=== PATIENT | female | born 1935 | race Caucasian/White ===

== ENCOUNTER 2020-01-07 07:54 | Emergency (ER) | payer MEDICARE, SELFPAY ==
[2020-01-07 08:05] VITALS: BP 199/80; PULSE 68; RESP 16; TEMP 36.2; O2SAT 97; BMI 36.5
--- NOTE | 2020-01-07 08:17 | XR_ITS ---
WS: [id number] Left arm and humerus, 2 views, 01/07/2020 Clinical Data: injury Comparison: None. Findings: There is an oblique fracture of the shaft of the left humerus. The visualized left elbow and left andres ulder joint show no fractures. There is a calcification overlying the left greater tuberosity represe nting calcific bursitis and/or tendinitis. There is medial displacement of the distal fracture fragme nt. XR/[place] [address] Impression: Oblique fracture of mid shaft of the left humerus.
--- NOTE | 2020-01-07 08:19 | ED_ITS ---
HPI - Extremity Injury (Upper) General: Chief Complaint: Extremity Injury, Upper Stated Complaint: fall-L arm injury Time Seen by Provider: 01/07/20 08:02 Source: patient and family Mode of arrival: wheelchair Limitations: no limitations History of Present Illness: HPI narrative: Patient is an 84-year-old female who presents to ED today for evaluation following a fall. Patient tells me she was in the bathroom when she looked up and became dizzy causing her to fall forward onto her left arm. Patient tells me it is not unusual for her to become dizzy if she looks down or up for long periods of time. She did not have any shortness of breath, chest pain, difficulty breathing prior to the fall. She states since the fall she has felt normal apart from pain in her left arm. She does not seem concerned with the dizziness and does not want any work-up for this today. Patient denies striking her head, LOC, neck or back pain. MD complaint: injury to: left and arm Onset (ago): hour(s) Other Extremity Injury: Left: arm Other injuries: none Relieving factors: immobilization Exacerbating factors: movement of extremity Associated symptoms: Reports no associated symptoms; Denies neck pain or weakness in extremities Review of Systems Const: Denies: fever(s), chills, body aches, fatigue or malaise Eyes: Denies: change in vision, blurry vision, photophobia, floaters or seeing flashes Card: Denies: chest pain, palpitations, irregular heart rhythm, edema, syncope or pre-syncope Resp: Denies: dyspnea or chest congestion GI: Denies: nausea or vomiting Musc: Reports: extremity pain (L arm) and joint pain (L shoulder); Denies: neck pain, back pain or joint swelling Neuro: Denies: headache(s), numbness in extremities, weakness in extremities or sensory changes PFS ED PFSH: Social History (Updated 01/07/20 @ 08:10 by Duc Carlton RN) Smoking and tobacco status: never smoked Alcohol intake: never Substance/Drug Use: never Physical Exam Const: COMMON NORMALS: no acute distress, patient oriented x3, no limitations and alert ORIENTATION/CONSCIOUSNESS: Yes oriented to person, Yes oriented to place and Yes oriented to time HENMT: COMMON NORMALS: normocephalic and atraumatic HEAD & SCALP: normocephalic and atraumatic Eye: COMMON NORMALS: Equal, round and reactive pupils present and EOMs intact bilaterally GENERAL EYE: appearance normal, both eyes and all related structures PUPIL: Yes Equal, round and reactive pupils present Neck/C-Spine: COMMON NORMALS: full ROM CERVICAL SPINE: No pain with cervical ROM, No Cervical spine tenderness and No Paracervical muscle tenderness Resp: COMMON NORMALS: normal respiratory effort and clear to auscultation bilaterally AUSCULTATION: clear to auscultation bilaterally Cardio: COMMON NORMALS: regular rate and regular rhythm RATE: regular rate RHYTHM: regular rhythm Back/Pelvis: COMMON NORMALS: thoracic and lumbar spine normal to inspection, no thoracic nor lumbar tenderness and thoraco-lumbar ROM normal Extremity: GENERAL: Yes normal exam except as noted OTHER: TTP L shoulder and L mid humerus; dec ROM secondary to pain; NV intact Neuro: UGO COMA SCALE: document GCS findings [place] coma scale eye opening: Spontaneous Ugo coma scale verbal response: Orientated [place] coma scale motor response: Obey commands Ugo coma scale total score: 15 COMMON NORMALS: patient oriented x3 SENSORIUM/ORIENTATION: Yes alert, Yes oriented to person, Yes oriented to place and Yes oriented to time Skin: COMMON NORMALS: no rashes or lesions noted GENERAL SKIN EXAM: no rashes or lesions noted Course Consultations: Consultation #1: Dr. Guillen-recommends erica tong upper arm splint and will see in office next week Vital Signs: Vital signs: Vital Signs Temperature 97.1 F L 01/07/20 08:05 Pulse Rate 68 01/07/20 08:05 Respiratory Rate 20 H 01/07/20 09:11 Blood Pressure 199/80 01/07/20 08:05 Pulse Oximetry 97 01/07/20 08:05 MDM - Extremity Injury (Upper) Lab Data: Labs: Lab Results 01/07/20 Range/Units 08:24 POC Glucose 261 (70-110) mg/dL Imaging Data^: XR L shoulder: Radiologist's impression: [address] [address] XRay Report Signed Patient: Shelley Balderrama Unit #: [id number] : 1935 Age/Sex: 84 / F ADM Date: 01/07/20 Loc: ER Room/Bed: Attending Dr: Ordering Provider/Ordering MD: Kelsey Greenberg Date of Service: 01/07/20 Procedure(s): XR shoulder LT min 2V* 01573 Accession Number(s): [id number] Report Number: [id number] WS: [id number] Left shoulder, 2 views, 01/07/2020 Clinical Data: injury; Y view Comparison: None. Findings: There is an oblique fracture of the mid shaft of the left humerus. The shoulder joints intact. The AC joints unremarkable. There is a small calcification overlying the greater tuberosity which may represent calcific bursitis or tendinitis. XR/XR shoulder LT min 2V* 12760 Impression: 1. Fracture of the mid shaft of the left humerus. 2. Negative for left shoulder fracture or dislocation. 3. Calcific bursitis or tendinitis of the left greater tuberosity. Dictated By: Niki Doll MD Signed By: Niki Doll MD Signed Date/Time: 01/07/20912 DD/ 1 XR L humerus: Radiologist's impression: [address] [place] [address] XRay Report Signed Patient: Shelley Balderrama Unit #: [id number] : 1935 Age/Sex: 84 / F ADM Date: 01/07/20 Loc: ER Room/Bed: Attending Dr: Ordering Provider/Ordering MD: Kelsey Greenberg Date of Service: 01/07/20 Procedure(s): [place] [address] Accession Number(s): [id number] Report Number: [id number] WS: [id number] Left arm and humerus, 2 views, 01/07/2020 Clinical Data: injury Comparison: None. Findings: There is an oblique fracture of the shaft of the left humerus. The visualized left elbow and left shoulder joint show no fractures. There is a calcification overlying the left greater tuberosity representing calcific bursitis and/or tendinitis. There is medial displacement of the distal fracture fragment. XR/[place] [address] Impression: Oblique fracture of mid shaft of the left humerus. Dictated By: Niki Doll MD Signed By: Niki Doll MD Signed Date/Time: 01/07/20914 DD/ 3 Discharge Plan Discharge Patient Disposition: Home Clinical Impression: Closed fracture of shaft of left humerus Qualifiers: Encounter type: initial encounter Fracture morphology: oblique Fracture alignment: displaced Qualified Code(s): S42.332A - Displaced oblique fracture of shaft of humerus, left arm, initial encounter for closed fracture Condition: Stable Prescriptions: New hydrocodone-acetaminophen 5-325 mg tablet 1 tab PO Q6H PRN (Reason: pain) Qty: 20 RF: 0 Discharge Orders: Discharge Order (Routine); Ordered 01/07/20 Ordered By: Kelsey Greenberg Referrals: Mattie Guillen MD [Physician] - Meet Patrick MD [Primary Care Provider] - Activity Restrictions/Additional Instructions: As discussed case management should be contacting you to set you up with your orthopedic appointment with Dr. Guillen. You need to use your cane with ambulat ion at all times especially if you will be taking the prescribed narcotic pain medications as this can increase your risk of falls. As we discussed you may start with a half a tablet and increase as needed to treat your pain. Coding Level of Care Code ED Non Licensed Nuclear Equipment Operator for [place] [facility] Exam Comprehensive
[2020-01-07 08:29] LABS: Glucose Point of Care 261 mg/dL (70-110)
[2020-01-07 09:11] VITALS: RESP 20
[2020-01-07] MEDS: morphine 4 mg/mL SDV 1 mL IM (09:11)
[2020-01-07] MEDS: ondansetron 2 mg/ML SDV 2 mL 4 MG IM (09:13)
--- NOTE | 2020-01-07 09:19 | DCPLANNER ---
manager lighting was asked to schedule a follow up appointment for patient with ortho. manager lighting called the ortho clinic, spoke with Pat, gave clinic patients information. A follow up appointment was scheduled for Saturday, January 11, [address] at 8:[address] Guillen. manager lighting informed ED physician of the scheduled appointment. manager lighting also spoke with patient and gave patient appointment information. Patient stated that she would attend the appointment.
[2020-01-07 09:48] VITALS: BP 169/104; PULSE 85; RESP 18
--- NOTE | 2020-01-16 09:20 | DCPLANNER ---
Patient had a follow up appointment scheduled for 01.11.20 with ortho - patient did attend appointment.
== END 2020-01-07 09:48 | disposition home or self-care (01) ==
PROVIDERS: Emergency Provider Physician Assistant; PCP Family Medicine
DX: S42.332A Displaced oblique fracture of shaft of humerus, left arm, initial encounter for closed fracture (principal); W19.XXXA Unspecified fall, initial encounter; R42 Dizziness and giddiness
CPT/HCPCS: 12345; 29125; 36416; 73030; 73060; 82962; 96372; 99282; 99283; J2270; J2405

== ENCOUNTER → 2020-01-11 08:58 | Outpatient (BNVA) | payer MEDICARE, SELFPAY | PROVIDERS: PCP Family Medicine; Referring Provider Physician Assistant; Visit Provider Specialist | DX: S42.332A Displaced oblique fracture of shaft of humerus, left arm, initial encounter for closed fracture (principal); W19.XXXA Unspecified fall, initial encounter; E66.9 Obesity, unspecified; Z68.38 Body mass index [BMI] 38.0-38.9, adult | CPT/HCPCS: 73060 ==

== ENCOUNTER → 2020-01-20 15:44 | Outpatient (BNVA) | payer MEDICARE, SELFPAY | PROVIDERS: PCP Family Medicine; Visit Provider Specialist | DX: S42.332A Displaced oblique fracture of shaft of humerus, left arm, initial encounter for closed fracture (principal) | CPT/HCPCS: 73060 ==

== ENCOUNTER → 2020-02-17 15:49 | Outpatient (BNVA) | payer MEDICARE, SELFPAY | PROVIDERS: PCP Family Medicine; Visit Provider Specialist | DX: S42.342A Displaced spiral fracture of shaft of humerus, left arm, initial encounter for closed fracture (principal) | CPT/HCPCS: 73060 ==

== ENCOUNTER → 2020-03-23 16:03 | Outpatient (BNVA) | payer MEDICARE, SELFPAY | PROVIDERS: PCP Family Medicine; Visit Provider Specialist | DX: S42.342A Displaced spiral fracture of shaft of humerus, left arm, initial encounter for closed fracture (principal); S42.332A Displaced oblique fracture of shaft of humerus, left arm, initial encounter for closed fracture | CPT/HCPCS: 73060 ==

== ENCOUNTER 2020-03-30 06:00 | Outpatient (RCR) | payer MEDICARE, SELFPAY | END 2020-04-07 23:59 | disposition home or self-care (01) | LOC: TPT 06:00 | PROVIDERS: PCP Family Medicine; Referring Provider Specialist; Visit Provider Specialist | DX: S42.202D Unspecified fracture of upper end of left humerus, subsequent encounter for fracture with routine healing (principal); X58.XXXD Exposure to other specified factors, subsequent encounter | CPT/HCPCS: 97161 ==

== ENCOUNTER 2020-04-08 06:00 | Outpatient (RCR) | payer MEDICARE, SELFPAY | END 2020-05-08 23:59 | disposition home or self-care (01) | LOC: TPT 06:00 | PROVIDERS: PCP Family Medicine; Referring Provider Specialist; Visit Provider Specialist | DX: S42.202D Unspecified fracture of upper end of left humerus, subsequent encounter for fracture with routine healing (principal); X58.XXXD Exposure to other specified factors, subsequent encounter | CPT/HCPCS: 97110; 97140 ==

== ENCOUNTER → 2020-04-20 15:42 | Outpatient (BNVA) | payer MEDICARE, SELFPAY | PROVIDERS: PCP Family Medicine; Visit Provider Specialist | DX: S42.342A Displaced spiral fracture of shaft of humerus, left arm, initial encounter for closed fracture (principal); S42.332A Displaced oblique fracture of shaft of humerus, left arm, initial encounter for closed fracture | CPT/HCPCS: 73060 ==

== ENCOUNTER 2020-05-09 06:00 | Outpatient (RCR) | payer MEDICARE, SELFPAY | END 2020-06-05 23:59 | disposition home or self-care (01) | LOC: TPT 06:00 | PROVIDERS: PCP Family Medicine; Referring Provider Specialist; Visit Provider Specialist | DX: S42.202D Unspecified fracture of upper end of left humerus, subsequent encounter for fracture with routine healing (principal); X58.XXXD Exposure to other specified factors, subsequent encounter | CPT/HCPCS: 97110; 97140 ==

== ENCOUNTER 2020-06-06 06:00 | Outpatient (RCR) | payer MEDICARE, SELFPAY | END 2020-07-06 23:59 | disposition home or self-care (01) | LOC: TPT 06:00 | PROVIDERS: PCP Family Medicine; Referring Provider Specialist; Visit Provider Specialist | DX: S42.202D Unspecified fracture of upper end of left humerus, subsequent encounter for fracture with routine healing (principal); X58.XXXD Exposure to other specified factors, subsequent encounter | CPT/HCPCS: 97110; 97140 ==

== ENCOUNTER → 2020-06-20 16:08 | Outpatient (BNVA) | payer MEDICARE, SELFPAY | PROVIDERS: PCP Family Medicine; Visit Provider Specialist | DX: S42.332A Displaced oblique fracture of shaft of humerus, left arm, initial encounter for closed fracture (principal); X58.XXXA Exposure to other specified factors, initial encounter | CPT/HCPCS: 73060 ==

== ENCOUNTER 2020-07-07 06:00 | Outpatient (RCR) | payer MEDICARE, SELFPAY | END 2020-08-02 23:00 | disposition home or self-care (01) | LOC: TPT 06:00 | PROVIDERS: PCP Family Medicine; Referring Provider Specialist; Visit Provider Specialist | DX: S42.202D Unspecified fracture of upper end of left humerus, subsequent encounter for fracture with routine healing (principal); X58.XXXD Exposure to other specified factors, subsequent encounter | CPT/HCPCS: 97110; 97140 ==

== ENCOUNTER 2020-12-01 12:29 | Outpatient (CLI) | payer MEDICARE, SELFPAY ==
--- NOTE | 2020-12-01 12:45 | USCV_ITS ---
Shelley Balderrama Age: 85 Gender: F : 1935 Exam Date: 12/01/2020 13:00 Ordering Phys: Fadia Holman MD ([email or web address]) Technologist: Mya Levine [place] [facility] [place]: SWELLING IN LEGS BP: / HR: 87 Rhythm: Sinus Technical Quality: Adequate MEASUREMENTS (Male / Female) Normal Values 2D ECHO LV Diastolic Diameter PLAX 3.5 cm 4.2 - 5.9 / 3.9 - 5.3 cm LV Systolic Diameter PLAX 2.5 cm LV Chamber Size 3.2 cm IVS Diastolic Thickness 0.9 cm 0.6 - 1.0 / 0.6 - 0.9 cm IVS Systolic Thickness 1.7 cm LVPW Diastolic Thickness 1.3 cm 0.6 - 1.0 / 0.6 - 0.9 cm LVPW Systolic Thickness 1.5 cm RV Chamber Size 3.3 cm LVOT Diameter 2.1 cm LV Ejection Fraction 2D Teich 57.8 % LV Ejection Fraction MOD 2C 69.7 % LV Ejection Fraction 2C AL 68.0 % LA Diameter 4.4 cm LA Width 3.3 cm LA Height 4.5 cm RA Width 3.7 cm RA Height 2.8 cm Aorta at Sinotubular Diameter 3.5 cm M-MODE LV Diastolic Diameter MM 3.9 cm 4.2 - 5.9 / 3.9 - 5.3 cm LV Systolic Diameter MM 2.3 cm LV Ejection Fraction MM Teich 73.7 % IVS Diastolic Thickness MM 1.3 cm 0.6 - 1.0 / 0.6 - 0.9 cm IVS Systolic Thickness MM 1.4 cm LVPW Diastolic Thickness MM 1.4 cm 0.6 - 1.0 / 0.6 - 0.9 cm LVPW Systolic Thickness MM 1.6 cm RV Diastolic Diameter MM 3.6 cm Aortic Annulus Diameter 3.5 cm LA Ao Ratio MM 1.2 MV E Point Septal Separation 0.6 cm DOPPLER AV Peak Velocity 166.0 cm/s LVOT Peak Velocity 110.0 cm/s AV Area Cont Eq vti 2.6 cm squared AV Area Cont Eq pk 2.2 cm squared MV Area PHT 5.5 cm squared Mitral E to A Ratio 0.6 MV E' Velocity 96.0 cm/s Mitral E to LV E' Septal Ratio 21.3 TR Peak Velocity 154.4 cm/s TR Peak Gradient 9.5 mmHg TR Mean Velocity 103.7 cm/s TR Mean Gradient 5.0 mmHg TR Velocity Time Integral 45.8 cm TV Peak E Velocity 68.0 cm/s Right Atrial Pressure 3.0 mmHg Pulmonary Artery Systolic Pressu 12.5 mmHg PV Peak Velocity 78.0 cm/s RV Acceleration Time 0.1 s RV Ejection Time 0.3 s RV AcT/ET 0.4 FINDINGS Left Ventricle Normal left ventricular cavity size. Normal left ventricular systolic function. No regional wall motion abnormalities. Left ventricular ejection fraction is estimated at 65 %. Grade I/IV diastolic dysfunction (abnormal relaxation filling pattern), normal to mildly elevated filling pressures. Right Ventricle The right ventricle is normal in size and function. Right Atrium The right atrium is normal in size. Left Atrium The left atrium is normal in size. Mitral Valve Severely thickened mitral valve. Severe mitral annular calcification. No mitral valve stenosis. Aortic Valve Moderate aortic valve calcification. No aortic valve stenosis. No aortic valve regurgitation. Tricuspid Valve Trace tricuspid valve regurgitation. Pulmonic Valve Structurally normal pulmonic valve without significant stenosis. There is no pulmonic regurgitation. Pericardium Normal pericardium without effusion. Aorta Normal ascending aorta dimension. CONCLUSIONS 1-Normal left ventricular cavity size. Normal left ventricular systolic function. No regional wall motion abnormalities. Left ventricular ejection fraction is estimated at 65 %. Grade I/IV diastolic dysfunction (abnormal relaxation filling pattern), normal to mildly elevated filling pressures. 2-Severely thickened mitral valve. Severe mitral annular calcification. No mitral valve stenosis. 3-Moderate aortic valve calcification. No aortic valve stenosis. No aortic valve regurgitation. 4-There is no pericardial effusion. 5-Pulmonary artery systolic pressure is within normal limits. 6-Right atrial pressure is around 5 mm of mercury. 7-There are no prior echocardiogram studies to compare. Fadia Holman MD (Electronically Signed) Final Date: 01 December 2020 18:01 S
--- NOTE | 2020-12-01 13:30 | USCV_ITS ---
Shelley Balderrama Age: 85 Gender: F : 1935 Exam Date: 12/01/2020 13:21 Ordering Phys: Fadia Holman MD ([email or web address]) Technologist: Mya Levine Exam Location[place] [facility] [place] Indication: HISTORY: Swelling of legs PROCEDURES: The venous duplex Doppler examination of both lower extremities was performed in the standard fashion. The following venous structures were evaluated: common femoral vein,the greater saphenous vein, superficial femoral vein, and the popliteal vein and ptv. Serial compression, augmentation maneuvers, and spectral Doppler flow evaluation were performed. An evaluation for venous insufficiency was also completed. FINDINGS: No DVT or superficial thrombus seen. No reflux seen The veins were found to be easily compressible with spontaneous blood flow. Non pulsatile flow pattern. CONCLUSIONS No evidence of DVT or superficial vein thrombosis based on the results of the above and patient's clinical progress, further recommendations will be made Thank you for the opportunity to evaluate this patient and make these recommendations in the above-mentioned identifiable veins. No significant venous reflux were noted either in the superficial or deep veins. Normal venous dimensions Dr Esther Lloyd MD [facility] (Electronically Signed) Final Date: 01 December 2020 23:45 S
== END 2020-12-01 12:30 | disposition home or self-care (01) ==
LOC: RAD 12:33
PROVIDERS: PCP Nurse Practitioner Family; Visit Provider Internal Medicine Cardiovascular Disease
DX: R06.00 Dyspnea, unspecified (principal); M79.89 Other specified soft tissue disorders; I08.0 Rheumatic disorders of both mitral and aortic valves
CPT/HCPCS: 93306; 93970

== ENCOUNTER 2022-12-20 17:45 | Emergency (ER) | payer MEDICARE, SELFPAY ==
[2022-12-20 17:59] VITALS: BP 111/70; PULSE 90; TEMP 36.8; O2SAT 93; BMI 37.9
[2022-12-20 19:05] LABS: Basophils # 0.1 10^3/uL (0.0-0.1); Basophils % 0.4 %; Eosinophils # 0.2 10^3/uL (0.0-0.8); Eosinophils % 1.6 %; Hematocrit 37.9 % (36-47); Lymphocytes # 2.1 10^3/uL (0.8-4.8); Lymphocytes % 18.5 %; Mean Corpuscular HGB Conc 29.6 g/dL (30-55); Mean Corpuscular Hemoglobin 23.3 pg (27-33); Mean Platelet Volume 9.1 fL (7.4-10.4); Monocytes # 1.1 10^3/uL (0.2-0.9); Monocytes % 9.6 %; Neutrophils # 8.05 10^3/uL (1.8-7.7); Neutrophils % 69.5 %; Nucleated Red Blood Cells % 0 %; Platelet Count 458 10^3/cmm (157-399); Red Cell Distribution Width 17.3 % (12.1-15.1); White Blood Count 11.59 10^3/uL (3.29-11.43)
[2022-12-20 19:26] LABS: Alanine Aminotransferase 17 U/L (0-33); Albumin Level 3.6 g/dL (3.5-5.2); Alkaline Phosphatase 74 U/L (35-105); Anion Gap 13.2 (5-19); Aspartate Amino Transferase 21 U/L (0-32); Blood Urea Nitrogen 16 mg/dL (8-23); Calcium 8.7 mg/dL (8.5-10.5); Carbon Dioxide 28 mmol/L (22-29); Chloride 100 mmol/L (98-107); Globulin 3.3 g/dL (1.3-4.6); Glucose 186 mg/dL (65-115); Lipase 21 U/L (13-60); Osmolality Calculated 290 mOsm/kg (285-295); Potassium 4.2 mmol/L (3.5-5.1); Sodium 137 mmol/L (136-145); Total Bilirubin 0.3 mg/dL (0.15-1.2); Total Protein 6.9 g/dL (6.6-8.7)
[2022-12-20 21:38] VITALS: BP 115/68; PULSE 82; TEMP 37.1; O2SAT 92
[2022-12-20 23:01] VITALS: BP 154/87; PULSE 83; O2SAT 97
--- NOTE | 2022-12-20 23:07 | CTR_ITS ---
PROCEDURE INFORMATION: Exam: CT Abdomen And Pelvis With Contrast Exam date and time: 12/20/2022 11:34 PM Age: 87 years old Clinical indication: Abdominal pain; Localized; Left lower quadrant (llq); Additional info: Llq abdominal pain TECHNIQUE: Imaging protocol: Computed tomography of the abdomen and pelvis with contrast. Radiation optimization: All CT scans at this facility use at least one of these dose optimization techniques: automated exposure control; mA and/or kV adjustment per patient size (includes targeted exams where dose is matched to clinical indication); or iterative reconstruction. Contrast material: OMNI 350; Contrast volume: 80 ml; Contrast route: INTRAVENOUS (IV); REPORTING DATA: Count of CT and Cardiac NM exams in prior 12 months: This patient has received 0 known CTs and 0 known cardiac nuclear medicine studies in the 12 months prior to the current study. COMPARISON: No relevant prior studies available. RADIATION DOSE METRICS: Total DLP (mGy-cm): 1234.33 FINDINGS: Lungs: The visualized lung bases are unremarkable. Coronary arteries: There is coronary artery calcification. Liver: There is fatty infiltration of the liver. Gallbladder and bile ducts: Normal. No calcified stones. No ductal dilation. Pancreas: Normal. No ductal dilation. Spleen: Normal. No splenomegaly. Adrenal glands: Normal. No mass. Kidneys and ureters: There is chronic renal disease. There are nonobstructing renal calculi in the left kidney. Stomach and bowel: There is diverticulosis without evidence of diverticulitis. Appendix: No evidence of appendicitis. Intraperitoneal space: Unremarkable. No free air. No significant fluid collection. Vasculature: there is diffuse atherosclerotic disease. Lymph nodes: Unremarkable. No enlarged lymph nodes. Urinary bladder: Unremarkable as visualized. Reproductive: Unremarkable as visualized. Bones/joints: Unremarkable. No acute fracture. Soft tissues: There is a fat containing umbilical hernia. CT/CT abdomen pelvis w con* [id number] IMPRESSION: No acute findings.
[2022-12-20] MEDS: sodium chloride 0.9% 1,000 ML 999 ML IV (23:18)
[2022-12-20] MEDS: iohexol 350 mg/mL 500 mL Btl (per mL) IV (23:40)
[2022-12-21] VITALS: BP 104/69; PULSE 81; O2SAT 93
[2022-12-21 00:30] VITALS: BP 138/80; PULSE 80; O2SAT 93
--- NOTE | 2022-12-21 02:30 | W.ED.ABDPA2 ---
HPI - Abdominal Pain General: Chief Complaint: Abdominal Pain Stated Complaint: abd pain N/V Time Seen by Provider: 12/20/22 22:37 History of Present Illness: Patient is in today for abdominal pain. She reports that since about mid November she has had generalized abdominal pain worse in the epigastric and also left lower quadrant abdomen. She states that this all started after she fell with her walker. She reports that she did not hit her abdomen that she knows of but they were squeezing her abdomen really hurt when they were trying to stand her up. Since then, she states that she has had abdominal pain worse after eating. In the epigastric and left lower quadrant abdomen. She denies any fever, chills. She has had some nausea but no vomiting. She has not seen a provider regarding this abdominal pain yet. She has been trying to cut back tomatoes and other irritating foods to see if that would help. Associated Symptoms: Denies chills, dysuria, fever(s), nausea, syncope and vomiting Review of Systems Const: Denies: fever(s), chills or body aches Card: Denies: chest pain, palpitations, irregular heart rhythm, lightheadedness or syncope Resp: Denies: dyspnea, productive cough or non-productive cough GI: Reports: abdominal pain (Epigastric and left lower quadrant); Denies: nausea or vomiting : Denies: flank pain, difficulty voiding, dysuria, urinary frequency, urinary urgency or urinary hesitancy Musc: Denies: neck pain or back pain Neuro: Denies: headache(s), numbness in extremities or weakness in extremities [facility] PFSH: Medical History Lower extremity edema Shortness of breath Family History Daughter No problems noted. Mother Cancer Diabetes Father Cancer Diabetes Stroke Other Hypertension Social History Smoking and tobacco status: never smoked Alcohol intake: never Substance/Drug Use: never Physical Exam Const: COMMON NORMALS: no acute distress, patient oriented x3 and alert GENERAL APPEARANCE: cooperative ORIENTATION/CONSCIOUSNESS: Yes awake, Yes oriented to person, Yes oriented to place and Yes oriented to time Neck/C-Spine: COMMON NORMALS: full ROM Resp: COMMON NORMALS: normal respiratory effort, No retractions, No use of accessory muscles and clear to auscultation bilaterally EFFORT & INSPECTION: Yes symmetric chest movement AUSCULTATION: clear to auscultation bilaterally Cardio: COMMON NORMALS: regular rate, regular rhythm, S1 normal heart sound present and S2 normal heart sound present RATE: regular rate RHYTHM: regular rhythm HEART SOUNDS: S1 normal heart sound present and S2 normal heart sound present GI: COMMON NORMALS: Normal to inspection, nondistended, normoactive bowel sounds present, Soft to palpation, No hepatosplenomegaly present, no masses and no bruits INSPECTION: Yes normal to inspection PALPATION: Yes Soft to palpation, Yes Tenderness to palpation present (GI) (Epigastric and left lower quadrant) Details: LLQ and Yes No hepatosplenomegaly present : COMMON NORMALS: Yes no CVA tenderness BLADDER/KIDNEY EXAM: Yes no CVA tenderness Back/Pelvis: COMMON NORMALS: no CVA tenderness Neuro: COMMON NORMALS: patient oriented x3 SENSORIUM/ORIENTATION: Yes alert, Yes oriented to person, Yes oriented to place and Yes oriented to time Psych: COMMON NORMALS: cooperative Course Vital Signs: Vital signs: Vital Signs Temperature 98.7 F 12/20/22 21:38 Pulse Rate 80 12/21/22 00:30 Blood Pressure 138/80 12/21/22 00:30 Pulse Oximetry 93 12/21/22 00:30 Oxygen Delivery Me thod Room Air 12/21/22 00:30 MDM - Abdominal Pain Medical Decision Making Consider abdominal pain, peptic ulcer disease, H. pylori, abdominal trauma, diverticulitis CT scan abdomen and pelvis shows no acute findings. White blood cell count is minimally elevated 11.59. Blood sugar is 186 patient reports that that is good for her she is diabetic. Patient was treated with a liter bolus of normal saline as she has been struggling to keep anything down. Discussed results of testing with the patient. Patient is offered a referral to gastroenterology however she would prefer to follow-up with her primary care provider first patient needs stool testing for H. pylori however she was unable to give a sample in ER. Advised patient to follow-up with primary care provider. Return to the ER for any new or worsening symptoms. Lab Data 12/20/22 18:32 12/20/22 18:32 Labs/Radiology: Radiology Impressions Abdomen/Pelvis CT 12/20/22 23:07 IMPRESSION: No acute findings. Laboratory Results WBC 11.59 10^3/uL (3.29-11.43) H 12/20/22 18: RBC 4.80 10^6/uL (3.85-5.65) 12/20/22 18:32 Hgb 11.20 g/dL (11.27-16.99) L 12/20/22 18:32 Hct 37.9 % (36-47) 12/20/22 18: MCV 79.0 fl (85-98) L 12/20/22 18: MCH 23.3 pg (27-33) L 12/20/22 18: MCHC 29.6 g/dL (30-55) L 12/20/22 18: RDW 17.3 % (12.1-15.1) H 12/20/22 18:32 Plt Count 458 10^3/cmm (157-399) H 12/20/22 18: MPV 9.1 fL (7.4-10.4) 12/20/22 18: Neut % (Auto) 69.5 % 12/20/22 18:32 Lymph % (Auto) 18.5 % 12/20/22 18:32 [place] % (Auto) 9.6 % 12/20/22 18:32 Eos % (Auto) 1.6 % 12/20/22 18:32 Baso % (Auto) 0.4 % 12/20/22 18:32 Neut # (Auto) 8.05 10^3/uL (1.8-7.7) H 12/20/22 18:32 Lymph # (Auto) 2.1 10^3/uL (0.8-4.8) 12/20/22 18:32 [place] # (Auto) 1.1 10^3/uL (0.2-0.9) H 12/20/22 18: Eos # (Auto) 0.2 10^3/uL (0.0-0.8) 12/20/22 18: Baso # (Auto) 0.1 10^3/uL (0.0-0.1) 12/20/22 18: Nucleated RBC % (auto) 0 % 12/20/22 18:32 Nucleated RBCs # 0.0 /100WBC 12/20/22 18:32 Sodium 137 mmol/L (136-145) 12/20/22 18:32 Potassium 4.2 mmol/L (3.5-5.1) 12/20/22 18:32 Chloride 100 mmol/L (98-107) 12/20/22 18:32 Carbon Dioxide 28 mmol/L (22-29) 12/20/22 18:32 Anion Gap 13.2 (5-19) 12/20/22 18:32 BUN 16 mg/dL (8-23) 12/20/22 18:32 Creatinine 1.0 mg/dL (0.5-0.9) H 12/20/22 18:32 GFR Calculation Not Reportable 12/20/22 18:32 Glucose 186 mg/dL (65-115) H 12/20/22 18:32 Calculated Osmolality 290 mOsm/kg (285-295) 12/20/22 18:32 Calcium 8.7 mg/dL (8.5-10.5) 12/20/22 18:32 Total Bilirubin 0.3 mg/dL (0.15-1.2) 12/20/22 18:32 AST 21 U/L (0-32) 12/20/22 18:32 ALT 17 U/L (0-33) 12/20/22 18:32 Alkaline Phosphatase 74 U/L (35-105) 12/20/22 18:32 Total Protein 6.9 g/dL (6.6-8.7) 12/20/22 18:32 Albumin 3.6 g/dL (3.5-5.2) 12/20/22 18:32 Globulin 3.3 g/dL (1.3-4.6) 12/20/22 18:32 Lipase 21 U/L (13-60) 12/20/22 18:32 All radiology interpretation(s) finalized by discharge Discharge Plan Discharge Patient Disposition: Home Clinical Impression: Abdominal pain Condition: Stable Prescriptions: No Action omeprazole magnesium [Prilosec OTC] 20 mg tablet,delayed release (DR/EC) 20 mg PO DAILY glipizide 5 mg tablet 5 mg PO TID Lantus U-100 Insulin 100 unit/mL solution 52 unit SUBCUT BID hydrochlorothiazide 25 mg tablet 25 mg PO DAILY (DME) Clam Shell Style Humeral Brace See Rx Instructions .Route .MEDSUPPLY Qty: 1 0RF Rx Instructions: As directed olmesartan 40 mg tablet 20 mg PO DAILY temazepam 30 mg capsule 30 mg PO .HS aspirin [Adult Low Dose Aspirin] 81 mg tablet,delayed release (DR/EC) 243 mg PO DAILY furosemide 20 mg tablet 20 mg PO DAILY PRN (Reason: edema) potassium chloride 10 mEq tablet extended release 10 meq PO DAILY PRN Discharge Orders: Discharge ED (Routine); Ordered 12/21/22 Ordered By: Grace Donaldson Referrals: Marleni Donaldson APN [Primary Care Provider] - Discharge Diet: Advance as tolerated and Clear Liquid Discharge Activity: Increase activity as tolerated Patient Instructions: Abdominal Pain (ED) Activity Restrictions/Additional Instructions: Your labs did not indicate any evidence of acute bacterial infection. Your CT scan did not show any acute abnormalities. I recommend that you follow-up with your primary care provider next week for ongoing evaluation. You may need a referral to GI specialist for further evaluation. Coding Level of Care Code ED Campaign Consultant for Hawa Perez
== END 2022-12-21 01:32 | disposition home or self-care (01) ==
PROVIDERS: Emergency Medicine; Emergency Provider Nurse Practitioner Family; PCP Nurse Practitioner Family
DX: R10.84 Generalized abdominal pain (principal); Z79.82 Long term (current) use of aspirin; Z79.84 Long term (current) use of oral hypoglycemic drugs; Z79.4 Long term (current) use of insulin
CPT/HCPCS: 36415; 74177; 80053; 83690; 85025; 99285; J7030; Q9967

== ENCOUNTER 2023-06-06 14:16 | Inpatient (IN) | payer MEDICARE, SELFPAY ==
[2023-06-06] VITALS (12 sets, daily range): BP systolic 135–196; BP diastolic 57–99; PULSE 68–92; RESP 18–36; TEMP 36.8–36.9; O2SAT 91–96; BMI 38.0
--- NOTE | 2023-06-06 14:24 | ECG_ITS ---
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 Measurements Intervals [place] Rate: 80 P: 0 MD: 0 QRS: 114 QRSD: 122 T: -36 QT: 356 QTc: 413 Interpretive Statements ATRIAL FIBRILLATION INDETERMINATE AXIS RIGHT BUNDLE BRANCH BLOCK [120+ ms QRS DURATION, UPRIGHT V1, 40+ ms S IN I/aVL/V4/V5/V6] SEPTAL MYOCARDIAL INFARCTION , OF INDETERMINATE AGE [40+ ms Q WAVE IN V1/V2] No previous ECG available for comparison Electronically Signed On 06-06-2023 21:10:45 SANDFILL OPERATOR SURFACE by Esther Lloyd M.D. [id number]
--- NOTE | 2023-06-06 14:25 | XR_ITS ---
WS: [id number] Exam: XR chest 1V portable [id number] Date/Time of Exam: 06/06/2023 2:25 PM Reason For Exam: sob No previous exams. The lungs are clear. There is blunting of the costophrenic angles bilaterally that may represent pleu ral thickening or small pleural effusions. Heart size top limits normal. Marked atheromatous calcific ation and tortuosity of the thoracic aorta. The mediastinum is unremarkable for technique. Bony struc tures are intact. Plaque atelectasis in the mid LEFT lung. IMPRESSION: 1. Blunted RIGHT and LEFT costophrenic angle suggesting either pleural thickening or small pleural ef fusions. 2. No acute infiltrates are noted. Other minor findings as above.
--- NOTE | 2023-06-06 14:27 | ED_ITS ---
HPI - SOB/Dyspnea 2 General: Chief Complaint: Shortness of Breath/Dyspnea Stated Complaint: sob Time Seen by Provider: 06/06/23 14:20 Source: patient and EMS Mode of arrival: EMS Limitations: no limitations History of Present Illness: HPI Narrative: 87-year-old female states over the last 2 days she has had cough congestion along with shortness of breath patient called EMS because she is having increasing dyspnea today EMS states her pulse ox in the low 80s and had to put her on 3 L which she is still on here. States she has had a nonproductive cough she does have some wheezing here no history of CHF or COPD. She denies any fevers denies any worsening proving factors. She did receive a breathing treatment and route Associated symptoms: Deny abdominal pain, chest pain, fever(s), nausea or vomiting Review of Systems 2 Const: Denies: fever(s) or chills Eyes: Denies: eye discomfort ENMT: Denies: throat pain or dental pain Card: Denies: chest pain Resp: Reports: dyspnea and non-productive cough GI: Denies: abdominal pain, nausea, vomiting or diarrhea Musc: Denies: neck pain or back pain Skin/Breast: Denies: rash Neuro: Denies: headache(s) PFSH ED 2 PFSH: Medical History Shortness of breath Lower extremity edema Family History Daughter No problems noted. Mother Cancer Diabetes Father Cancer Diabetes Stroke Other Hypertension Social History Smoking and tobacco/nicotine status: never used tobacco/nicotine Alcohol intake: never Substance/Drug Use: never Physical Exam 2 Const: COMMON NORMALS: patient oriented x3 HENMT: COMMON NORMALS: normocephalic and atraumatic HEAD & SCALP: n ormocephalic and atraumatic Eye: COMMON NORMALS: Equal, round and reactive pupils present and EOMs intact bilaterally PUPIL: Yes Equal, round and reactive pupils present Neck/C-Spine: COMMON NORMALS: full ROM and supple Chest: COMMONS NORMALS: normal inspection of the chest and normal palpation of entire chest wall Resp: COMMON NORMALS: No retractions EFFORT & INSPECTION: Yes respiratory distress AUSCULTATION: rhonchi and wheezes Cardio: COMMON NORMALS: regular rate, regular rhythm and No murmurs present (Cardio) RATE: regular rate RHYTHM: regular rhythm GI: COMMON NORMALS: Normal to inspection, nondistended, normoactive bowel sounds present, Soft to palpation, non-tender and no masses PALPATION: Yes Soft to palpation Extremity: COMMON NORMALS: normal to inspection and full ROM Neuro: COMMON NORMALS: patient oriented x3, moves all extremities and no focal motor deficits Psych: COMMON NORMALS: mental status grossly normal, Normal thought process present and cooperative THOUGHT PROCESS: Normal thought process present Skin: COMMON NORMALS: no rashes or lesions noted and no wounds GENERAL SKIN EXAM: no rashes or lesions noted Course 2 Vital Signs: Vital signs: Vital Signs Temperature 98.3 F 06/06/23 14:20 Pulse Rate 85 06/06/23 14:59 Respiratory Rate 24 H 06/06/23 14:51 Blood Pressure 176/99 06/06/23 14:56 Pulse Oximetry 95 06/06/23 14:56 Oxygen Delivery Me thod Nasal Cannula 06/06/23 14:56 Oxygen Flow Rate 2 06/06/23 14:56 MDM - SOB/Dyspnea Medical Decision Making Patient presents for with respiratory distress with hypoxia she is requiring 2 L oxygen here she does have some rales and wheezing to given breathing treatments her BNP is elevated as well could have new onset CHF she has no signs of pneumonia spoke to the hospitalist will admit at this time she has had no chest pain. Medical Records I reviewed the patient's medical records. Lab Data I reviewed the patient's lab results. 06/06/23 14:43 06/06/23 14:43 Labs/Radiology: Laboratory Results WBC 9.24 10^3/uL (3.29-11.43) 06/06/23 14:43 RBC 4.85 10^6/uL (3.85-5.65) 06/06/23 14:43 Hgb 10.10 g/dL (11.27-16.99) L 06/06/23 14:43 Hct 37.0 % (36-47) 06/06/23 14:43 MCV 76.3 fl (85-98) L 06/06/23 14:43 MCH 20.8 pg (27-33) L 06/06/23 14:43 MCHC 27.3 g/dL (30-55) L 06/06/23 14:43 RDW 21.2 % (12.1-15.1) H 06/06/23 14:43 Plt Count 370 10^3/cmm (157-399) 06/06/23 14:43 MPV 9.0 fL (7.4-10.4) 06/06/23 14:43 Neut % (Auto) 76.0 % 06/06/23 14:43 Lymph % (Auto) 10.7 % 06/06/23 14:43 [place] % (Auto) 12.0 % 06/06/23 14:43 Eos % (Auto) 0.3 % 06/06/23 14:43 Baso % (Auto) 0.6 % 06/06/23 14:43 Neut # (Auto) 7.01 10^3/uL (1.8-7.7) 06/06/23 14:43 Lymph # (Auto) 1.0 10^3/uL (0.8-4.8) 06/06/23 14:43 [place] # (Auto) 1.1 10^3/uL (0.2-0.9) H 06/06/23 14:43 Eos # (Auto) 0.0 10^3/uL (0.0-0.8) 06/06/23 14:43 Baso # (Auto) 0.1 10^3/uL (0.0-0.1) 06/06/23 14:43 Nucleated RBC % (auto) 0 % 06/06/23 14:43 Nucleated RBCs # 0.0 /100WBC 06/06/23 14:43 Specimen Type Arterial 06/06/23 15:01 Sample Site Radial, left 06/06/23 15:01 ABG pH 7.40 (7.35-7.45) 06/06/23 15:01 ABG pCO2 48.7 mmHg (35-45) H 06/06/23 15:01 ABG pO2 74.3 mmHg (80.0-100.0) L 06/06/23 15:01 ABG PO2/FiO2 Ratio 0 06/06/23 15:01 ABG HCO3 30.0 mmol/L (22-26) H 06/06/23 15:01 ABG Base Excess 4.4 mmol/L (-2.0-2.0) H 06/06/23 15:01 Lionel Test Pos 06/06/23 15:01 Hematocrit 32.8 % (37-47) L 06/06/23 15:01 Hgb O2 Saturation 92.1 % (95-100) L 06/06/23 15:01 Carboxyhemoglobin 1.7 %THgb (0.4-20.1) 06/06/23 15:01 Methemoglobin 0.6 % (0.4-1.5) 06/06/23 15:01 Total Hemoglobin 10.7 g/dL (12-16) L 06/06/23 15:01 O2 Delivery Device Nc 06/06/23 15:01 O2 Liters/Min 3.0 % 06/06/23 15:01 FiO2 32.0 % 06/06/23 15:01 Charger Tester ID glc 06/06/23 15:01 Sodium 133 mmol/L (136-145) L 06/06/23 14:43 Potassium 5.0 mmol/L (3.5-5.1) 06/06/23 14:43 Chloride 95 mmol/L (98-107) L 06/06/23 14:43 Carbon Dioxide 28 mmol/L (22-29) 06/06/23 14:43 Anion Gap 15.0 (5-19) 06/06/23 14:43 BUN 9 mg/dL (8-23) 06/06/23 14:43 Creatinine 1.0 mg/dL (0.5-0.9) H 06/06/23 14:43 GFR Calculation Not Reportable 06/06/23 14:43 Glucose 225 mg/dL (65-115) H 06/06/23 14:43 Calculated Osmolality 282 mOsm/kg (285-295) L 06/06/23 14:43 Calcium 8.9 mg/dL (8.5-10.5) 06/06/23 14:43 Total Bilirubin 0.5 mg/dL (0.15-1.2) 06/06/23 14:43 AST 25 U/L (0-32) 06/06/23 14:43 ALT 21 U/L (0-33) 06/06/23 14:43 Alkaline Phosphatase 116 U/L (35-105) H 06/06/23 14:43 NT-Pro-B Natriuret Pep 3127 pg/mL (0-450) H 06/06/23 14:43 Total Protein 6.9 g/dL (6.6-8.7) 06/06/23 14:43 Albumin 3.5 g/dL (3.5-5.2) 06/06/23 14:43 Globulin 3.4 g/dL (1.3-4.6) 06/06/23 14:43 Influenza Type A Ag negative (Negative) 06/06/23 14:50 Influenza Type B Ag negative (Negative) 06/06/23 14:50 SARS-CoV-2 Ag (Rapid) negative (Negative) 06/06/23 14:50 All radiology interpretation(s) finalized by discharge EKG Data EKG 1: I personally reviewed and interpreted this EKG as follows: EKG Interpretation Date: 06/06/23 EKG interpretation time: 14:21 Interpretation: hr [address] elevation qrs 122 qtc 393 Critical Care Time 2 Critical Care Time: Critical Care Time: Yes Total Critical Care Time: 40 Attestation: The high probability of a clinically significant, sudden or life threatening deterioration of the patient's respsystem(s) required my full and direct attention, intervention and personal management. The critical care time is as shown. This time is in addition to time spent performing any reported procedures but includes the following: [x] Data and vital sign review and interpretation [x] Patient assessment, examination and intervention [x] Documentation [x] Medication orders and management Discharge Plan Discharge Patient Disposition: Admitted As Inpatient Clinical Impression: Acute respiratory failure with hypoxia, Hypertension Condition: Stable Prescriptions: No Action omeprazole magnesium [Prilosec OTC] 20 mg tablet,delayed release (DR/EC) 20 mg PO DAILY glipizide 5 mg tablet 5 mg PO TID Lantus U-100 Insulin 100 unit/mL solution 54 unit SUBCUT BID hydrochlorothiazide 25 mg tablet 25 mg PO DAILY PRN (Reason: SWELLING) (DME) Clam Shell Style Humeral Brace See Rx Instructions .Route .MEDSUPPLY Qty: 1 0RF Rx Instructions: As directed temazepam 30 mg capsule 30 mg PO .HS aspirin [Adult Low Dose Aspirin] 81 mg tablet,delayed release (DR/EC) 243 mg PO .@1600 potassium chloride 10 mEq tablet extended release 10 meq PO DAILY PRN olmesartan 20 mg tablet 10 mg PO DAILY Referrals: Donaldson,SULY Yepez [Primary Care Provider] - Coding Level of Care Code ED Criminal Lawyer for Hawa Perez
[2023-06-06] MEDS: methylPREDNISolone sod succ 125 mg/2 mL INJ IV (14:41)
[2023-06-06] MEDS: ipratropium-albuterol 3 mL Neb INHALATION (14:47)
[2023-06-06 14:57] LABS: Basophils # 0.1 10^3/uL (0.0-0.1); Basophils % 0.6 %; Eosinophils % 0.3 %; Lymphocytes % 10.7 %; Mean Corpuscular HGB Conc 27.3 g/dL (30-55); Mean Corpuscular Hemoglobin 20.8 pg (27-33); Mean Corpuscular Volume 76.3 fl (85-98); Monocytes # 1.1 10^3/uL (0.2-0.9); Neutrophils # 7.01 10^3/uL (1.8-7.7); Nucleated Red Blood Cells % 0 %; Platelet Count 370 10^3/cmm (157-399); Red Blood Count 4.85 10^6/uL (3.85-5.65); Red Cell Distribution Width 21.2 % (12.1-15.1); White Blood Count 9.24 10^3/uL (3.29-11.43)
[2023-06-06 15:13] LABS: ABG PCO2 48.7 mmHg (35-45); Arterial Blood Gas Hematocrit 32.8 % (37-47); Base Excess ABG 4.4 mmol/L (-2.0-2.0); Blood Gas Allen Test Pos; Blood Gas Operator Identificat glc; Blood Gas Sample Site Radial, left; Blood Gas Sample Type Arterial; Carboxyhemoglobin 1.7 %THgb (0.4-20.1); HGB O2 Sat 92.1 % (95-100); Methemoglobin 0.6 % (0.4-1.5); Oxygen Device NC; PO2 ABG 74.3 mmHg (80.0-100.0); PO2 FiO2 Ratio Arterial Blood 0; Total Hemoglobin 10.7 g/dL (12-16)
[2023-06-06] MEDS: hyDRALAzine 20 mg/mL INJ 1 mL 10 MG IVP ×2 (15:13→16:19)
[2023-06-06 15:14] LABS: SARS Covid-2 Antigen negative (Negative)
[2023-06-06 15:15] LABS: Influenza A by IFA negative (Negative); Influenza B by IFA negative (Negative)
[2023-06-06 15:33] LABS: Alanine Aminotransferase 21 U/L (0-33); Albumin Level 3.5 g/dL (3.5-5.2); Alkaline Phosphatase 116 U/L (35-105); Aspartate Amino Transferase 25 U/L (0-32); Blood Urea Nitrogen 9 mg/dL (8-23); Calcium 8.9 mg/dL (8.5-10.5); Carbon Dioxide 28 mmol/L (22-29); Chloride 95 mmol/L (98-107); Creatinine Clr Calc Pharmacy 44.0794; Globulin 3.4 g/dL (1.3-4.6); Glucose 225 mg/dL (65-115); NT Pro B Type Natriuretic Pept 3127 pg/mL (0-450); Osmolality Calculated 282 mOsm/kg (285-295); Sodium 133 mmol/L (136-145); Total Bilirubin 0.5 mg/dL (0.15-1.2); Total Protein 6.9 g/dL (6.6-8.7)
--- NOTE | 2023-06-06 16:00 | USCV_ITS ---
Shelley Balderrama Age: 87 Gender: F : 1935 Exam Date: 06/06/2023 19:11 Ordering Phys: Anette Pepe MD Technologist: GENNA Exam Location: [facility] [place] Indication: cough, SOB, no history of CHF or COPD. No history of cardiac intervention per patient. BP: 147 / 57 HR: 1929 Rhythm: Sinus Technical Quality: Adequate MEASUREMENTS (Male / Female) Normal Values 2D ECHO LV Diastolic Diameter PLAX 4.0 cm 4.2 - 5.9 / 3.9 - 5.3 cm IVS Diastolic Thickness 1.4 cm 0.6 - 1.0 / 0.6 - 0.9 cm IVS Systolic Thickness 2.1 cm LVPW Diastolic Thickness 1.4 cm 0.6 - 1.0 / 0.6 - 0.9 cm LVPW Systolic Thickness 1.8 cm LVOT Diameter 1.7 cm LV Ejection Fraction 2D Teich 81.6 % LV Ejection Fraction MOD 2C 83.2 % LV Ejection Fraction 2C AL 0.0 % LA Diameter 4.6 cm Aorta at Sinotubular Diameter 3.0 cm IVC Diameter 2.5 cm M-MODE LA Ao Ratio MM 1.4 AV Cusp Separation MM 1.0 cm DOPPLER AV Peak Velocity 256.0 cm/s LVOT Peak Velocity 100.0 cm/s AV Area Cont Eq vti 0.9 cm squared AV Area Cont Eq pk 0.8 cm squared MV Peak Velocity 183.0 cm/s MV Area PHT 2.5 cm squared Mitral E to A Ratio 0.0 TV Peak Velocity 257.7 cm/s TR Peak Velocity 261.0 cm/s TR Peak Gradient 27.2 mmHg TV Peak E Velocity 61.0 cm/s Right Atrial Pressure 15.0 mmHg Pulmonary Artery Systolic Pressu 42.2 mmHg PV Peak Velocity 111.0 cm/s FINDINGS Left Ventricle Normal left ventricular size and systolic function, EF 81%. Mild left ventricular hypertrophy. No regional wall motion abnormalities. Grade III/IV diastolic dysfunction (restrictive filling pattern), severely elevated filling pressures. Right Ventricle The right ventricle is normal in size and function. Right Atrium Mildly increased right atrial size. Left Atrium Moderately increased left atrial size. Mitral Valve Moderate mitral annular calcification. Aortic Valve Mild to moderate calcification of the aortic valve. Severe low gradient aortic valve stenosis with a valve area of 0.9 cm squared Tricuspid Valve Moderate tricuspid valve regurgitation. Estimated pulmonary artery peak systolic pressure 42 mm normal Pulmonic Valve Mild pulmonary valve regurgitation. Pericardium No pericardial effusion. Aorta Normal ascending aorta dimension. IVC Dilated IVC with decreased respiratory variation. CONCLUSIONS Normal left ventricular size and systolic function, EF 81%. Mild left ventricular hypertrophy. No regional wall motion abnormalities. Grade III/IV diastolic dysfunction (restrictive filling pattern), severely elevated filling pressures. Mildly increased right atrial size. Moderately increased left atrial size. Moderate mitral annular calcification. Mild to moderate calcification of the aortic valve. Severe low gradient, possibly normal flow aortic valve stenosis with a valve area of 0.9 cm squared. Moderate tricuspid valve regurgitation. Mild pulmonary hypertension with an estimated pulmonary artery peak systolic pressure of 42 mmHg Mild pulmonary valve regurgitation. Compared to the study from 12/01/2020, there is some worsening of the aortic valve stenosis, diastolic dysfunction and development of pulmonary hypertension Dr Esther Lloyd MD [facility] (Electronically Signed) Final Date: 07 June 2023 08:54 S
[2023-06-06] MEDS: FUROsemide 10 mg/mL SDV 4mL 40 MG IVP (16:18)
[2023-06-06 16:28] LABS: Lactic Sepsis W/Reflex 1.2 mmol/L (0.5-2.2)
[2023-06-06] MEDS: heparin 5,000 unit/mL INJ 1 mL 5000 UNIT SUBCUT (17:17)
[2023-06-06 17:32] LABS: Glucose Point of Care 212 mg/dL (70-110)
--- NOTE | 2023-06-06 18:33 | P.HP_ITS ---
Providers/Chief Complaint 2 Admitting Physician: Anette Pepe MD Primary Care Provider: Marleni Donaldson APN Chief Complaint: sob History of Present Illness Shelley Balderrama is a 87 year old female who does not carry history of COPD, does not use oxygen at home, she is not completely sure about her medical history stating that her sister would know more, presented to the hospital with chief complaint of shortness of breath. Patient has been experiencing shortness of breath for last 3 days associated with talking and PND and dyspnea on exertion. She lives with her son, her son cooks for her and takes care of her. Patient is denying chest pain, fever, diarrhea endorsing cold, cold symptoms. She is not sure if she has ever been diagnosed with CHF or COPD. In the ER she was showing signs of congestive heart failure with wheezing cardiac wheezing 1 L has been removed from the bag she has a Loyd catheter which was placed in the ER, Patient is stating that he has history of atrial flutter but does not take any blood thinner she is not able to tell me the reason Review of Systems 2 Const: Denies: fever(s) Eyes: Denies: change in vision ENMT: Denies: throat pain Card: Reports: swelling of feet/ankles; Denies: palpitations Resp: Reports: dyspnea GI: Denies: abdominal pain : Denies: flank pain Medications/Allergies Home Medications Medication Instructions Recorded Confirmed Last Taken Type Clam Shell Style Humeral Brace #1 ea 01/11/20 06/06/23 Unknown Rx glipizide 5 mg tablet 5 mg PO TID 01/11/20 06/06/23 06/06/23 History hydrochlorothiazide 25 mg tablet 25 mg PO DAILY PRN SWELLING 01/11/20 06/06/23 06/05/23 History insulin glargine 100 unit/mL 54 unit SUBCUT BID 01/11/20 06/06/23 06/06/23 History subcutaneous solution (Lantus U-100 Insulin) aspirin 81 mg tablet,delayed 243 mg PO .@1600 10/19/20 06/06/23 06/05/23 History release (Adult Low Dose Aspirin) temazepam 30 mg capsule 30 mg PO BEDTIME 10/19/20 06/06/23 06/05/23 History albuterol sulfate 90 mcg/actuation 2 puff inhalation QID PRN 06/06/23 06/06/23 Unknown History aerosol inhaler Shortness Of Breath azithromycin 250 mg tablet See Rx Instructions .Route .COMPLEX 06/06/23 06/06/23 06/05/23 History cetirizine 10 mg tablet 10 mg PO DAILY 06/06/23 06/06/23 06/05/23 History digoxin 125 mcg (0.125 mg) tablet 0.125 mg PO DAILY 06/06/23 06/06/23 06/05/23 History guaifenesin 600 mg tablet, 600 mg PO Q12H PRN Congestion 06/06/23 06/06/23 Unknown History extended release 12 hr (Mucinex) levothyroxine 75 mcg tablet 75 mcg PO QAM 06/06/23 06/06/23 06/06/23 History olmesartan 20 mg tablet 10 mg PO DAILY 06/06/23 06/06/23 06/06/23 History pantoprazole 40 mg tablet,delayed 40 mg PO DAILY 06/06/23 06/06/23 06/06/23 History release Allergies Allergy/AdvReac Type Severity Reaction Status Date / Time amlodipine Allergy Unknown Unknown Verified 06/06/23 14:26 Penicillins Allergy Unknown ALGY-Rash Verified 06/06/23 14:26 ibuprofen AdvReac Unknown Unknown Verified 06/06/23 14:26 metformin AdvReac Unknown Unknown Verified 06/06/23 14:26 PFSH Acute 2 PFSH: Medical History Diabetes mellitus Hyponatremia Hypertension Fracture, humerus closed Obesity, Class II, BMI 35-39.9 Closed fracture of shaft of left humerus Shortness of breath Lower extremity edema Family History Daughter No problems noted. Mother Cancer Diabetes Father Cancer Diabetes Stroke Other Hypertension Social History Smoking and tobacco/nicotine status: never used tobacco/nicotine Alcohol intake: never Substance/Drug Use: never Vitals/I&O/Wt Last Vital Signs Temp 98.3 F 06/06/23 14:20 Pulse 88 06/06/23 17:00 Resp 36 H 06/06/23 17:00 BP 147/57 02/29/24 17:00 Pulse Ox 92 06/06/23 17:00 O2 Del Method Nasal Cannula 06/06/23 17:00 O2 Flow Rate 2 06/06/23 17:00 Weight last 48 hrs Weight 97.522 kg Physical Exam 2 Narrative: Signs of fluid overload present 1 positive pitting edema Currently on 4 L nasal cannula No active chest pain S1, S2 Abdomen soft distended Pleasant and cooperative Mild cognitive impairment Nonfocal neuroexam Urinary Catheter Management: Loyd: Cath Placed During This Visit: yes Urinary Catheter Date of Insertion: 06/06/23 Urinary Catheter Time of Insertion: 17: Data 06/06/23 14:43 06/06/23 14:43 A&P Assessment and plan (1) Shortness of breath: (2) Acute respiratory failure with hypoxia: (3) Lower extremity edema: (4) New onset of congestive heart failure: (5) Wheezing: Plan Acute/new onset CHF Previous echo showed preserved action fraction Preserved respiration heart for exacerbation Will request another echo Start IV Lasix Loyd catheter has been placed for accurate urine output Patient is on digoxin endorse a history of atrial flutter not on any blood thinner Takes aspirin high-dose Cardiac wheezing Anticipate improvement with diuresis Acute hypoxia related to CHF No active sign of pneumonia Currently requiring 4 L, does not use oxygen at home I do believe she has CHF signs greater than COPD Will reduce the dose of steroids to prednisone 40 daily DNR/DNI goals of care discussed with the patient DVT prophylaxis covered with heparin Type 2 diabetes continue insulin sliding scale continue levothyroxine History of hypertension I am continue losartan for now Will request records from [facility], she is stating that she was in [facility] in January last year Self interpretation chest x-ray showing mild vascular congestion and pleural effusion Attestations 2 Medical Necessity Statement*: Anticipating more than 2 midnights Diagnoses Shortness of breath R06.02 Acute respiratory failure with hypoxia J96.01 Lower extremity edema R60.0 New onset of congestive heart failure I50.9 Wheezing R06.2
[2023-06-06 21:28] LABS: Glucose Point of Care 326 mg/dL (70-110)
[2023-06-06] MEDS: insulin lispro 100 unit/1 mL SUBCUT (21:39)
[2023-06-07] VITALS (12 sets, daily range): BP systolic 121–139; BP diastolic 70–81; PULSE 75–88; RESP 17–24; TEMP 36.4–37.7; O2SAT 92–98
[2023-06-07] MEDS: heparin 5,000 unit/mL INJ 1 mL 5000 UNIT SUBCUT (04:53)
[2023-06-07 06:05] LABS: Basophils % 0.1 %; Hematocrit 33.5 % (36-47); Lymphocytes # 0.7 10^3/uL (0.8-4.8); Lymphocytes % 9.2 %; Mean Corpuscular HGB Conc 26.9 g/dL (30-55); Mean Corpuscular Hemoglobin 20.6 pg (27-33); Mean Corpuscular Volume 76.8 fl (85-98); Mean Platelet Volume 9.7 fL (7.4-10.4); Monocytes # 0.6 10^3/uL (0.2-0.9); Monocytes % 7.6 %; Neutrophils % 82.7 %; Nucleated Red Blood Cells % 0 %; Platelet Count 322 10^3/cmm (157-399); Red Blood Count 4.36 10^6/uL (3.85-5.65); Red Cell Distribution Width 20.9 % (12.1-15.1); White Blood Count 7.86 10^3/uL (3.29-11.43)
[2023-06-07] MEDS: levothyroxine 75 mcg Tablet PO (06:21)
[2023-06-07 06:24] LABS: Glucose Point of Care 234 mg/dL (70-110)
[2023-06-07 06:26] LABS: Estmated Average Glucose 266; Hemoglobin A1C 10.9 % (4.0-6.0)
[2023-06-07 06:32] LABS: Alanine Aminotransferase 17 U/L (0-33); Albumin Level 2.9 g/dL (3.5-5.2); Alkaline Phosphatase 90 U/L (35-105); Blood Urea Nitrogen 15 mg/dL (8-23); Calcium 8.6 mg/dL (8.5-10.5); Carbon Dioxide 28 mmol/L (22-29); Chloride 97 mmol/L (98-107); Creatinine Clr Calc Pharmacy 34.6386; Globulin 3.4 g/dL (1.3-4.6); Glucose 228 mg/dL (65-115); Magnesium 2.2 mg/dL (1.7-2.3); Osmolality Calculated 280 mOsm/kg (285-295); Sodium 131 mmol/L (136-145); Total Bilirubin 0.4 mg/dL (0.15-1.2); Total Protein 6.3 g/dL (6.6-8.7)
[2023-06-07 06:37] LABS: Anion Gap 11.3 (5-19); Aspartate Amino Transferase 24 U/L (0-32); Potassium 5.3 mmol/L (3.5-5.1)
[2023-06-07] MEDS: insulin lispro 100 unit/1 mL SUBCUT ×4 (08:47→21:51)
[2023-06-07] MEDS: losartan 50 mg Tablet PO (08:48)
[2023-06-07] MEDS: predniSONE 20 mg Tablet 40 MG PO (08:48)
[2023-06-07] MEDS: FUROsemide 10 mg/mL SDV 4mL 40 MG IVP ×3 (08:49→23:54)
[2023-06-07] MEDS: pantoprazole DR 40 mg Tablet PO (08:49)
--- NOTE | 2023-06-07 10:04 | PC.CHAP ---
Pastoral Care Encounter/Spiritual Assessment Type of Contact [x] Declined bank analyst visit [] Patient/Family/Request visit [] Outpatient visit [] Follow-up visit [] Physician referral [] Code/Alert [] Routine visit [] Staff referral [] Actively dying [] Patient sleeping [] Family support [] [] Out of room [] Palliative care [] [] Receiving care in room [] Pre-surgical visit [] Trauma [] Long length of stay [] ICU visit [] Other: Relational/Emotional Strength [] Patient feels connected with others/family/visitors/staff [] Distress [] Loneliness/isolation [] Abandonment Spirituality of Patient [] Person of Lupe [] Attends Rastafari of their Lupe [] Believes in Prayer [] Reads Bible or Presybeterian materials [] There are Spiritual issues to be addressed Trailer Mechanic Interventions [] Prayer [] Active listening [] Non-anxious presence [] Spiritual/emotional support [] Crisis/trauma care [] Spiritual counseling [] Bereavement support [] Provided bereavement packet [] Provided Bible/devotional materials [] Provided toy/stuffed animal, coloring book to patient or family member [] Provided Communion [] Anointing/[place] [] Salvation [] Completed spiritual assessment [] Other: Impact on Illness or Injury [] Angry [] Fearful [] Anxious [] Often cries [] Exhaustion [] Unable to work [] Unable to attend rastafarian [] Unable to walk/stand [] Unable to read [] Unable to drive [] Unable to eat/drink [] Unable to sleep [] Unable to be with family [] Patient intubated [] Other: Summary Time spent with patient
[2023-06-07 11:54] LABS: Glucose Point of Care 250 mg/dL (70-110)
--- NOTE | 2023-06-07 12:24 | P.PN_ITS ---
Subjective 2 Subjective: Family at the bedside stating that patient has history of colon cancer stage III which was removed recently at [facility], postoperatively she developed A- fib she was not put on any blood thinners but she was put on Cardizem and digoxin Echo is revealing pulm hypertension mild aortic stenosis and diastolic dysfunction, Patient is stating that she is feeling much better on BiPAP Currently on 5 L nasal cannula No active chest pain Patient is stating that she is not going to go for chemoradiotherapy, she stating that she is done with the doctors Vitals/I&O/Wt Last Vital Signs Temp 98.0 F 06/07/23 11:49 Pulse 81 06/07/23 11:49 Resp 18 06/07/23 11:49 BP 133/81 06/07/23 11:49 Pulse Ox 93 06/07/23 11:49 O2 Del Method Nasal Cannula 06/07/23 11:49 O2 Flow Rate 2 06/06/23 20:00 FiO2 35 06/07/23 02:40 06/06/23 06/07/23 06/07/23 22:59 06:59 14:59 Intake Total 480 / 480 480 / 960 640 / 640 Output Total 700 / 700 Balance 480 / 480 -220 / 260 640 / 640 Weight last 48 hrs Weight 101.321 kg Weight 97.522 kg Physical Exam 2 Narrative: Laying supine Wheezing has improved Currently on 5 L No active chest pain Family at the bedside 1+ edema of legs Abdomen soft Bowel sound present S1, S2 Urinary Catheter Management: Loyd: Cath Placed During This Visit: yes Reason for Continuing Indwelling Catheter: Acute Urinary Retention or Obstruction Urinary Catheter Date of Insertion: 06/06/23 Urinary Catheter Time of Insertion: 17:29 Data 06/07/23 04:47 06/07/23 04:47 A&P Assessment and plan (1) New onset of congestive heart failure: (2) Wheezing: (3) Acute respiratory failure with hypoxia: (4) Shortness of breath: (5) Lower extremity edema: (6) Hyperkalemia: (7) ANNIE (acute kidney injury): Plan New onset CHF Preserved expression Mild pulm hypertension Mild Diastolic function Continue IV Lasix however I will increase the dose to twice a day Cardiac wheezing has improve ANNIE likely cardiorenal I will increase dose of Lasix Hyperkalemia: Will give her Kayexalate along lactulose Paroxysmal atrial flutter, will prescribe her Eliquis along Cardizem Stage III colon cancer status post hemicolectomy No active discomfort Patient will need outpatient cardiology evaluation DNR/DNI Cardiac diet/consistent carb Continue levothyroxine for hypothyroidism Disposition: Will be decided after physical therapy Attestations 2 Medical Necessity Statement*: Likely discharge on Saturday Diagnoses New onset of congestive heart failure I50.9 Wheezing R06.2 Acute respiratory failure with hypoxia J96.01 Shortness of breath R06.02 Lower extremity edema R60.0 Hyperkalemia E87.5 ANNIE (acute kidney injury) N17.9
--- NOTE | 2023-06-07 13:04 | PC.SOCIAL ---
Pg 2 IMM Explained to pt Pg 2 IMM. No questions voiced. Provided pt a copy. Initialed, dated, & timed a copy & placed in chart.
[2023-06-07 16:39] LABS: Glucose Point of Care 214 mg/dL (70-110)
[2023-06-07] MEDS: dilTIAZem ER (12HR) 60 mg Capsule PO (17:32)
[2023-06-07] MEDS: artificial tears Op Soln 15 mL Btl 1 DROP EYE-BOTH (20:18)
[2023-06-07] MEDS: apixaban 5 mg Tablet PO (20:18)
[2023-06-07 21:32] LABS: Glucose Point of Care 385 mg/dL (70-110)
[2023-06-07] MEDS: insulin glargine 100 units/1 mL 50 UNIT SUBCUT (21:51)
[2023-06-08] VITALS (14 sets, daily range): BP systolic 107–141; BP diastolic 62–80; PULSE 78–93; RESP 16–28; TEMP 36.4–36.6; O2SAT 90–99
[2023-06-08 03:13] LABS: Basophils % 0.3 %; Hematocrit 33.2 % (36-47); Lymphocytes # 1.2 10^3/uL (0.8-4.8); Lymphocytes % 15.2 %; Mean Corpuscular HGB Conc 27.7 g/dL (30-55); Mean Corpuscular Hemoglobin 20.6 pg (27-33); Mean Corpuscular Volume 74.4 fl (85-98); Monocytes # 1.2 10^3/uL (0.2-0.9); Monocytes % 15.2 %; Neutrophils # 5.39 10^3/uL (1.8-7.7); Nucleated Red Blood Cells % 0 %; Platelet Count 266 10^3/cmm (157-399); Red Blood Count 4.46 10^6/uL (3.85-5.65); Red Cell Distribution Width 20.9 % (12.1-15.1); White Blood Count 7.81 10^3/uL (3.29-11.43)
[2023-06-08 03:38] LABS: Blood Urea Nitrogen 25 mg/dL (8-23); Calcium 8.8 mg/dL (8.5-10.5); Carbon Dioxide 33 mmol/L (22-29); Chloride 94 mmol/L (98-107); Creatinine Clr Calc Pharmacy 37.5252; Glucose 212 mg/dL (65-115); Osmolality Calculated 297 mOsm/kg (285-295); Sodium 138 mmol/L (136-145)
[2023-06-08] MEDS: levothyroxine 75 mcg Tablet PO (05:52)
[2023-06-08 06:55] LABS: Glucose Point of Care 149 mg/dL (70-110)
[2023-06-08] MEDS: insulin lispro 100 unit/1 mL SUBCUT ×3 (09:19→21:36)
[2023-06-08] MEDS: dilTIAZem ER (12HR) 60 mg Capsule PO ×2 (09:20→17:09)
[2023-06-08] MEDS: apixaban 5 mg Tablet PO ×2 (09:21→21:35)
[2023-06-08] MEDS: pantoprazole DR 40 mg Tablet PO (09:21)
--- NOTE | 2023-06-08 11:18 | P.PN_ITS ---
Subjective 2 Subjective: Patient endorsing feeling much better Currently on 4 L Vitals/I&O/Wt Last Vital Signs Temp 97.5 F L 06/08/23 07:56 Pulse 82 06/08/23 08:40 Resp 16 06/08/23 08:40 BP 112/72 06/08/23 07:56 Pulse Ox 95 06/08/23 08:40 O2 Del Method Nasal Cannula 06/08/23 08:40 O2 Flow Rate 4 06/08/23 08:40 FiO2 35 06/08/23 03:42 06/07/23 06/08/23 06/08/23 22:59 06:59 14:59 Intake Total 120 / 760 480 / 480 Output Total 2225 / 4025 2150 / 6175 Balance -2105 / -3265 -2150 / -5415 480 / 480 Weight last 48 hrs Weight 99.79 kg Weight 101.321 kg Weight 97.522 kg Physical Exam 2 Narrative: Sign of fluid load improving Trace edema of legs Mild crackles positive on lung auscultation currently on 4 L Pleasant cooperative GCS 15 Hard of hearing Abdomen soft Positive bowel sound Urinary Catheter Management: Loyd: Cath Placed During This Visit: yes Reason for Continuing Indwelling Catheter: Other Urinary Catheter Date of Insertion: 06/06/23 Urinary Catheter Time of Insertion: 17:29 Data 06/08/23 02:59 06/08/23 02:59 A&P Assessment and plan (1) New onset of congestive heart failure: (2) ANNIE (acute kidney injury): (3) Hyperkalemia: (4) Wheezing: (5) Acute respiratory failure with hypoxia: (6) Shortness of breath: (7) Lower extremity edema: (8) Paroxysmal A-fib: Plan Paroxysmal A-fib Continue AV sotero blocking agent along Eliquis Acute hypoxia currently on 4 L Wean oxygen to room air Acute CHF exacerbation Preserved Pulm hypertension, mild , Preserved ejection fraction heart exacerbation Continue IV Lasix PT recommended home health DNR/DNI Colon cancer stage III: Patient does not want to pursue any further intervention Status post hemicolectomy Patient will need outpatient follow-up with Dr. Lloyd Cardiac consistent carb diet ANNIE: Cardiorenal showing signs of contraction alkalosis will reduce the dose of Lasix to once daily Bicarb 33 Disposition: Home with home health Will need home oxygen evaluation by tomorrow Attestations 2 Medical Necessity Statement*: Plan to discharge her on Saturday Diagnoses New onset of congestive heart failure I50.9 ANNIE (acute kidney injury) N17.9 Hyperkalemia E87.5 Wheezing R06.2 Acute respiratory failure with hypoxia J96.01 Shortness of breath R06.02 Lower extremity edema R60.0 Paroxysmal A-fib I48.0
[2023-06-08 12:13] LABS: Glucose Point of Care 114 mg/dL (70-110)
[2023-06-08 16:37] LABS: Glucose Point of Care 212 mg/dL (70-110)
[2023-06-08 21:29] LABS: Glucose Point of Care 209 mg/dL (70-110)
[2023-06-08] MEDS: insulin glargine 100 units/1 mL 50 UNIT SUBCUT (21:37)
[2023-06-08] MEDS: acetaminophen 325 mg Tablet 650 MG PO (21:44)
[2023-06-08] MEDS: ipratropium-albuterol 3 mL Neb INHALATION (22:00)
[2023-06-09 04:00] VITALS: BP 118/68; PULSE 83; RESP 18; TEMP 36.6; O2SAT 98
[2023-06-09 04:22] LABS: Basophils % 0.5 %; Eosinophils # 0.1 10^3/uL (0.0-0.8); Hematocrit 34.3 % (36-47); Lymphocytes # 1.9 10^3/uL (0.8-4.8); Lymphocytes % 25.4 %; Mean Corpuscular HGB Conc 27.1 g/dL (30-55); Mean Corpuscular Hemoglobin 20.4 pg (27-33); Mean Corpuscular Volume 75.4 fl (85-98); Mean Platelet Volume 9.1 fL (7.4-10.4); Monocytes % 12.4 %; Neutrophils # 4.61 10^3/uL (1.8-7.7); Neutrophils % 60.4 %; Nucleated Red Blood Cells % 0 %; Platelet Count 364 10^3/cmm (157-399); Red Blood Count 4.55 10^6/uL (3.85-5.65); Red Cell Distribution Width 21.1 % (12.1-15.1); White Blood Count 7.64 10^3/uL (3.29-11.43)
[2023-06-09 04:41] LABS: Anion Gap 10.7 (5-19); Blood Urea Nitrogen 26 mg/dL (8-23); Calcium 8.5 mg/dL (8.5-10.5); Carbon Dioxide 33 mmol/L (22-29); Chloride 96 mmol/L (98-107); Creatinine Clr Calc Pharmacy 40.5882; Glucose 88 mg/dL (65-115); Osmolality Calculated 286 mOsm/kg (285-295); Potassium 3.7 mmol/L (3.5-5.1); Sodium 136 mmol/L (136-145)
[2023-06-09 05:37] VITALS: PULSE 93
[2023-06-09] MEDS: levothyroxine 75 mcg Tablet PO (05:56)
[2023-06-09 06:00] VITALS: BMI 37.6
[2023-06-09 07:24] LABS: Glucose Point of Care 102 mg/dL (70-110)
[2023-06-09 07:30] VITALS: PULSE 81; RESP 18; O2SAT 94
[2023-06-09] MEDS: dilTIAZem ER (12HR) 60 mg Capsule PO (08:01)
[2023-06-09] MEDS: acetaminophen 325 mg Tablet 650 MG PO (08:01)
[2023-06-09] MEDS: pantoprazole DR 40 mg Tablet PO (08:01)
[2023-06-09] MEDS: apixaban 5 mg Tablet PO (08:01)
[2023-06-09 08:34] VITALS: BP 117/73; PULSE 86; RESP 18; TEMP 36.4; O2SAT 95
[2023-06-09 09:28] VITALS: O2SAT 85; O2SAT 95
[2023-06-09 10:58] LABS: Glucose Point of Care 246 mg/dL (70-110)
--- NOTE | 2023-06-09 11:14 | P.DS_ITS ---
Discharge Providers Date of Admission: 06/06/23 15:43 Date of Discharge: June 09, 2023 Attending Provider at Admission: Anette Pepe MD Attending Provider at Discharge: Fadia Guajardo MD Primary Care Provider: Marleni Donaldson APN Diagnoses at Discharge Discharge Diagnosis (1) New onset of congestive heart failure: Status: Acute (2) ANNIE (acute kidney injury): Status: Acute (3) Hyperkalemia: Status: Acute (4) Wheezing: Status: Acute (5) Acute respiratory failure with hypoxia: Status: Acute (6) Shortness of breath: Status: Acute (7) Lower extremity edema: Status: Acute (8) Paroxysmal A-fib: Status: Acute Reason for Visit Reason for Visit: sob Hospital Course Hospital Course 87-year female who was admitted for management evaluation of acute hypoxia, respiratory distress related to CHF exacerbation, she was put on BiPAP, she was diuresed aggressively, echo showed pulmonary hypertension, mild aortic stenosis, preserved action fraction, patient recently had hemicolectomy at [facility] for stage III colon cancer, patient is stating that she does not want to pursue chemoradiotherapy if that is indicated in future, during hospitalization she required 3 L of oxygen, she qualified for 3 at the time of discharge as well, I have prescribed her Lasix along potassium supplement, I have discontinued her hydrochlorothiazide and olmesartan because she has remained normotensive now she will be getting Cardizem for rate control along Lasix. I have also discontinued glipizide. She may resume her insulin. Glipizide was discontinued for risk of hypoglycemia. She will need referral to follow-up with cardiology for pulmonary hypertension We will arrange home health Physical Exam Narrative: Pleasant cooperative Signs of fluid overload improving Pleasant cough Currently on 3 L GCS 15 Nonfocal neuroexam Urinary Catheter Management: Loyd: Cath Placed During This Visit: yes Reason for Continuing Indwelling Catheter: Accurate Measurement of Urinary Output in Critically Ill Patients Urinary Catheter Date of Insertion: 06/06/23 Urinary Catheter Time of Insertion: 17:29 Discharge Data Studies Completed and Pending Completed Studies During Hospitalization Category Date Time Status XR chest 1V portable [id number] Stat Exams 06/06/23 14:25 Completed US echo complete [CV. echo complete* [id number]] Stat Ultrasound 06/06/23 16:00 Completed Laboratory Results WBC 7.64 10^3/uL (3.29-11.43) 06/09/23 03:30 RBC 4.55 10^6/uL (3.85-5.65) 06/09/23 03:30 Hgb 9.30 g/dL (11.27-16.99) L 06/09/23 03:30 Hct 34.3 % (36-47) L 06/09/23 03:30 MCV 75.4 fl (85-98) L 06/09/23 03:30 MCH 20.4 pg (27-33) L 06/09/23 03:30 MCHC 27.1 g/dL (30-55) L 06/09/23 03:30 RDW 21.1 % (12.1-15.1) H 06/09/23 03:30 Plt Count 364 10^3/cmm (157-399) D 06/09/23 03:30 MPV 9.1 fL (7.4-10.4) 06/09/23 03:30 Neut % (Auto) 60.4 % 06/09/23 03:30 Lymph % (Auto) 25.4 % 06/09/23 03:30 [place] % (Auto) 12.4 % 06/09/23 03:30 Eos % (Auto) 1.0 % 06/09/23 03:30 Baso % (Auto) 0.5 % 06/09/23 03:30 Neut # (Auto) 4.61 10^3/uL (1.8-7.7) 06/09/23 03:30 Lymph # (Auto) 1.9 10^3/uL (0.8-4.8) 06/09/23 03:30 [place] # (Auto) 1.0 10^3/uL (0.2-0.9) H 06/09/23 03:30 Eos # (Auto) 0.1 10^3/uL (0.0-0.8) 06/09/23 03:30 Baso # (Auto) 0.0 10^3/uL (0.0-0.1) 06/09/23 03:30 Nucleated RBC % (auto) 0 % 06/09/23 03:30 Nucleated RBCs # 0.0 /100WBC 06/09/23 03:30 Specimen Type Arterial 06/06/23 15:01 Sample Site Radial, left 06/06/23 15:01 ABG pH 7.40 (7.35-7.45) 06/06/23 15:01 ABG pCO2 48.7 mmHg (35-45) H 06/06/23 15:01 ABG pO2 74.3 mmHg (80.0-100.0) L 06/06/23 15:01 ABG PO2/FiO2 Ratio 0 06/06/23 15:01 ABG HCO3 30.0 mmol/L (22-26) H 06/06/23 15:01 ABG Base Excess 4.4 mmol/L (-2.0-2.0) H 06/06/23 15:01 Lionel Test Pos 06/06/23 15:01 Hematocrit 32.8 % (37-47) L 06/06/23 15:01 Hgb O2 Saturation 92.1 % (95-100) L 06/06/23 15:01 Carboxyhemoglobin 1.7 %THgb (0.4-20.1) 06/06/23 15:01 Methemoglobin 0.6 % (0.4-1.5) 06/06/23 15:01 Total Hemoglobin 10.7 g/dL (12-16) L 06/06/23 15:01 O2 Delivery Device Nc 06/06/23 15:01 O2 Liters/Min 3.0 % 06/06/23 15:01 FiO2 32.0 % 06/06/23 15:01 Steam Shovel Operator ID glc 06/06/23 15:01 Sodium 136 mmol/L (136-145) 06/09/23 03:30 Potassium 3.7 mmol/L (3.5-5.1) 06/09/23 03:30 Chloride 96 mmol/L (98-107) L 06/09/23 03:30 Carbon Dioxide 33 mmol/L (22-29) H 06/09/23 03:30 Anion Gap 10.7 (5-19) 06/09/23 03:30 BUN 26 mg/dL (8-23) H 06/09/23 03:30 Creatinine 1.1 mg/dL (0.5-0.9) H 06/09/23 03:30 GFR Calculation Not Reportable 06/09/23 03:30 Glucose 88 mg/dL (65-115) 06/09/23 03:30 POC Glucose 246 mg/dL (70-110) H 06/09/23 10:55 Estimat Average Glucose 266 06/07/23 04:47 Hemoglobin A1c 10.9 % (4.0-6.0) H 06/07/23 04:47 Calculated Osmolality 286 mOsm/kg (285-295) 06/09/23 03:30 Lactic Acid 1.2 mmol/L (0.5-2.2) 06/06/23 14:43 Calcium 8.5 mg/dL (8.5-10.5) 06/09/23 03:30 Magnesium 2.2 mg/dL (1.7-2.3) 06/07/23 04:47 Total Bilirubin 0.4 mg/dL (0.15-1.2) 06/07/23 04:47 AST 24 U/L (0-32) 06/07/23 04:47 ALT 17 U/L (0-33) 06/07/23 04:47 Alkaline Phosphatase 90 U/L (35-105) 06/07/23 04:47 NT-Pro-B Natriuret Pep 3127 pg/mL (0-450) H 06/06/23 14:43 Total Protein 6.3 g/dL (6.6-8.7) L 06/07/23 04:47 Albumin 2.9 g/dL (3.5-5.2) L 06/07/23 04:47 Globulin 3.4 g/dL (1.3-4.6) 06/07/23 04:47 Procalcitonin 0.10 ng/mL (0-0.5) 06/06/23 14:43 TSH 2.30 uIU/mL (0.27-4.20) 06/06/23 14:43 Digoxin 1.0 ng/mL (0.6-1.2) 06/06/23 14:43 Influenza Type A Ag negative (Negative) 06/06/23 14:50 Influenza Type B Ag negative (Negative) 06/06/23 14:50 SARS-CoV-2 Ag (Rapid) negative (Negative) 06/06/23 14:50 Vitals Last Vital Signs Temp 97.6 F 06/09/23 08:34 Pulse 86 06/09/23 08:34 Resp 18 06/09/23 08:34 BP 117/73 06/09/23 08:34 Pulse Ox 85 L 06/09/23 09:28 O2 Del Method Nasal Cannula 06/09/23 08:34 O2 Flow Rate 3 06/09/23 09:28 FiO2 35 06/08/23 03:42 Discharge Plan Discharge Patient Disposition: Home Condition: Stable Prescriptions: New furosemide [Lasix] 20 mg tablet 20 mg PO DAILY Qty: 60 1RF potassium chloride 10 mEq tablet extended release 10 meq PO DAILY PRN (Reason: with lasix) Qty: 60 2RF Rx Instructions: only take when you take lasix albuterol sulfate 90 mcg/actuation HFA aerosol inhaler 2 inh inhalation Q8H PRN (Reason: shortness of breath or wheezing) Qty: 6.7 2RF Eliquis 5 mg Tablet 5 mg PO BID@0900,2100 Qty: 60 4RF diltiazem HCl [Cardizem LA] 120 mg tablet extended release 24 hr 120 mg PO DAILY Qty: 60 4RF Continued Lantus U-100 Insulin 100 unit/mL solution 54 unit SUBCUT BID (DME) Clam Shell Style Humeral Brace See Rx Instructions .Route .MEDSUPPLY Qty: 1 0RF Rx Instructions: As directed temazepam 30 mg capsule 30 mg PO BEDTIME cetirizine 10 mg Tablet 10 mg PO DAILY levothyroxine 75 mcg tablet 75 mcg PO QAM pantoprazole 40 mg tablet,delayed release (DR/EC) 40 mg PO DAILY albuterol sulfate 90 mcg/actuation HFA aerosol inhaler 2 puff INHALATION QID PRN (Reason: Shortness Of Breath) Mucinex 600 mg Tablet Extended Release 12hr 600 mg PO Q12H PRN (Reason: Congestion) Discontinued glipizide 5 mg tablet 5 mg PO TID hydrochlorothiazide 25 mg tablet 25 mg PO DAILY PRN (Reason: SWELLING) aspirin [Adult Low Dose Aspirin] 81 mg tablet,delayed release (DR/EC) 243 mg PO .@1600 olmesartan 20 mg tablet 10 mg PO DAILY azithromycin 250 mg tablet See Rx Instructions .ROUTE .COMPLEX Rx Instructions: TAKE 2 TABLETS BY MOUTH ON DAY 1, THEN TAKE 1 TABLET DAILY ON digoxin 125 mcg (0.125 mg) tablet 0.125 mg PO DAILY Discharge Orders: Discharge Order (Routine); Ordered 06/09/23 Ordered By: Fadia Guajardo Other Ambulatory Orders: DME: Nebulizer with Neb Kit (Order) Location: None Selected Ordered By: Fadia Guajardo DME: Oxygen (Order) Location: None Selected Ordered By: Fadia Guajardo Referrals: Marleni Donaldson APN [Primary Care Provider] - 7-10 days Esther Lloyd MD [Physician] - 7-10 days Discharge Diet: Cardiac Discharge Activity: Increase activity as tolerated Patient Instructions: Opioid Safety Activity Restrictions/Additional Instructions: I will discontinue hydrochlorothiazide and olmesartan because blood pressure has been around 117/73mmhhg and now you will be taking Cardizem which is actually to keep your heart rate under control, for A-fib with only use Eliquis for prevention of stroke, Eliquis 5 mg twice a day, Whenever you take Lasix please keep in mind to take potassium with the Lasix pill to avoid low potassium in your blood You do not need olmesartan, hydrochlorothiazide and digoxin You can use albuterol as needed for your shortness of breath With Eliquis side effect is GI bleed monitor for black tarry stool in that case stop taking Eliquis Discharge Attestations Time Spent in Discharge Care*: greater than 30 min Quality Metrics Clinical Quality Measures [ No reported AMI, CVA or VTE this stay] Coding Level of Care Code Acute Code for Chg Fwd Diagnoses New onset of congestive heart failure I50.9 ANNIE (acute kidney injury) N17.9 Hyperkalemia E87.5 Wheezing R06.2 Acute respiratory failure with hypoxia J96.01 Shortness of breath R06.02 Lower extremity edema R60.0 Paroxysmal A-fib I48.0
[2023-06-09 13:02] VITALS: BP 117/73; PULSE 86; RESP 18; TEMP 36.4; O2SAT 95
== END 2023-06-09 13:03 | disposition home health service (06) | DRG 291 ==
LOC: ER 15:44 → MEDSURG 18:05
PROVIDERS: Admitting Provider Internal Medicine; Emergency Provider Emergency Medicine; PCP Nurse Practitioner Family; Visit Provider Internal Medicine
DX: I13.0 Hypertensive heart and chronic kidney disease with heart failure and stage 1 through stage 4 chronic kidney disease, or unspecified chronic kidney disease (principal); I50.31 Acute diastolic (congestive) heart failure; J96.01 Acute respiratory failure with hypoxia; C18.9 Malignant neoplasm of colon, unspecified; N17.9 Acute kidney failure, unspecified; N18.9 Chronic kidney disease, unspecified; E11.22 Type 2 diabetes mellitus with diabetic chronic kidney disease; E66.9 Obesity, unspecified; G31.84 Mild cognitive impairment of uncertain or unknown etiology; I48.0 Paroxysmal atrial fibrillation; E87.5 Hyperkalemia; Z66 Do not resuscitate; I35.0 Nonrheumatic aortic (valve) stenosis; I27.20 Pulmonary hypertension, unspecified; Z11.52 Encounter for screening for COVID-19; Z79.4 Long term (current) use of insulin; Z79.82 Long term (current) use of aspirin; Z68.37 Body mass index [BMI] 37.0-37.9, adult; Z90.49 Acquired absence of other specified parts of digestive tract; Z99.81 Dependence on supplemental oxygen
CPT/HCPCS: 36415; 36416; 36600; 51702; 71045; 80048; 80053; 80162; 82805; 82962; 83036; 83605; 83735; 83880; 84145; 84443; 85025; 87426; 87804; 93005; 93306; 94640; 94660; 94760; 96372; 96374; 96375; 97110; 97161; 97530; 99285; J0360; J1644; J1815; J1940; J2930; J7512

== ENCOUNTER 2023-07-09 12:05 | Outpatient (CLI) | payer MEDICARE, SELFPAY ==
[2023-07-09 12:28] LABS: Basophils % 0.3 %; Eosinophils # 0.1 10^3/uL (0.0-0.8); Eosinophils % 0.5 %; Hematocrit 34.3 % (36-47); Lymphocytes # 1.1 10^3/uL (0.8-4.8); Lymphocytes % 11.3 %; Mean Corpuscular HGB Conc 29.2 g/dL (30-55); Mean Corpuscular Hemoglobin 22.6 pg (27-33); Mean Corpuscular Volume 77.4 fl (85-98); Mean Platelet Volume 9.2 fL (7.4-10.4); Monocytes # 0.9 10^3/uL (0.2-0.9); Monocytes % 9.4 %; Neutrophils # 7.61 10^3/uL (1.8-7.7); Neutrophils % 78.1 %; Nucleated Red Blood Cells % 0 %; Platelet Count 337 10^3/cmm (157-399); Red Blood Count 4.43 10^6/uL (3.85-5.65); Red Cell Distribution Width 21.7 % (12.1-15.1); White Blood Count 9.75 10^3/uL (3.29-11.43)
[2023-07-09 12:58] LABS: Alanine Aminotransferase 13 U/L (0-33); Albumin Level 3.5 g/dL (3.5-5.2); Alkaline Phosphatase 111 U/L (35-105); Anion Gap 10.6 (5-19); Aspartate Amino Transferase 21 U/L (0-32); Blood Urea Nitrogen 16 mg/dL (8-23); Calcium 8.8 mg/dL (8.5-10.5); Carbon Dioxide 37 mmol/L (22-29); Chloride 86 mmol/L (98-107); Globulin 3.9 g/dL (1.3-4.6); Glucose 202 mg/dL (65-115); NT Pro B Type Natriuretic Pept 2532 pg/mL (0-450); Osmolality Calculated 275 mOsm/kg (285-295); Potassium 4.6 mmol/L (3.5-5.1); Sodium 129 mmol/L (136-145); Total Bilirubin 0.4 mg/dL (0.15-1.2); Total Protein 7.4 g/dL (6.6-8.7)
[2023-07-09 12:59] LABS: Thyroid Stimulating Hormone 1.39 uIU/mL (0.27-4.20)
== END 2023-07-09 12:06 | disposition home or self-care (01) ==
LOC: LAB 12:09
PROVIDERS: PCP Nurse Practitioner Family; Visit Provider Nurse Practitioner Family
DX: R06.02 Shortness of breath (principal); E03.9 Hypothyroidism, unspecified; I11.0 Hypertensive heart disease with heart failure; I50.9 Heart failure, unspecified
CPT/HCPCS: 80053; 83880; 84443; 85025

== ENCOUNTER 2023-07-09 13:26 | Inpatient (IN) | payer MEDICARE, SELFPAY ==
[2023-07-09] VITALS (8 sets, daily range): BP systolic 120–138; BP diastolic 64–80; PULSE 75–87; RESP 16–26; TEMP 36.8–37.6; O2SAT 88–98; BMI 37.4
--- NOTE | 2023-07-09 13:32 | XR_ITS ---
WS: [id number] Examination: XR chest 1V portable [id number] Reason for Exam: weakness, sob Date: July 09, 2023 Comparison: June 06, 2023 Findings: The heart is enlarged. The aorta is calcified and tortuous. Basilar consolidation and effusions are suspected. This is similar to slightly worse than on the prev ious study Diffusely the lung markings are increased suggesting pulmonary venous hypertension. Impression: There is cardiomegaly and pulmonary venous hypertension Effusions and basilar opacities are again noted.
--- NOTE | 2023-07-09 13:40 | ECG_ITS ---
[facility] Test Date: 2023-07-09 Pat Name: Shelley Balderrama Department: Room: Gender: Female Representative Personal Service: : 1935 Requested By: Citlalli Torres Order Number: [id number] Alcantar MD: Janes Tyson M.D. Measurements Intervals [place] Rate: 77 P: 0 RI: 0 QRS: 139 QRSD: 142 T: -23 QT: 396 QTc: 449 Interpretive Statements ATRIAL FIBRILLATION INDETERMINATE AXIS RIGHT BUNDLE BRANCH BLOCK [120+ ms QRS DURATION, UPRIGHT V1, 40+ ms S IN I/aVL/V4/V5/V6] Compared to ECG 06/06/2023 14:21:46 Myocardial infarct finding no longer present Electronically Signed On 07-09-2023 14:11:20 CDT by Janes Tyson M.D. [id number]
[2023-07-09 14:01] LABS: Basophils % 0.2 %; Eosinophils % 0.3 %; Hematocrit 33.2 % (36-47); Lymphocytes # 1.4 10^3/uL (0.8-4.8); Lymphocytes % 14.5 %; Mean Corpuscular HGB Conc 28.3 g/dL (30-55); Mean Corpuscular Hemoglobin 22.4 pg (27-33); Mean Platelet Volume 8.6 fL (7.4-10.4); Monocytes # 1.1 10^3/uL (0.2-0.9); Neutrophils # 7.16 10^3/uL (1.8-7.7); Neutrophils % 73.6 %; Nucleated Red Blood Cells % 0 %; Platelet Count 303 10^3/cmm (157-399); Red Cell Distribution Width 21.9 % (12.1-15.1); White Blood Count 9.73 10^3/uL (3.29-11.43)
[2023-07-09 14:18] LABS: Troponin(5th) Baseline 54 ng/L (0-10)
[2023-07-09 14:26] LABS: Influenza A by IFA Negative (Negative); Influenza B by IFA Positive (Negative)
[2023-07-09 14:28] LABS: Alanine Aminotransferase 12 U/L (0-33); Albumin Level 3.4 g/dL (3.5-5.2); Alkaline Phosphatase 107 U/L (35-105); Aspartate Amino Transferase 18 U/L (0-32); Blood Urea Nitrogen 17 mg/dL (8-23); C Reactive Protein 6.7 mg/L (0.0-4.9); Calcium 8.7 mg/dL (8.5-10.5); Carbon Dioxide 37 mmol/L (22-29); Chloride 87 mmol/L (98-107); Globulin 3.4 g/dL (1.3-4.6); Glucose 217 mg/dL (65-115); NT Pro B Type Natriuretic Pept 2752 pg/mL (0-450); Osmolality Calculated 276 mOsm/kg (285-295); Sodium 129 mmol/L (136-145); Total Bilirubin 0.4 mg/dL (0.15-1.2); Total Protein 6.8 g/dL (6.6-8.7)
[2023-07-09 14:29] LABS: Creatinine Clr Calc Pharmacy 38.2147
[2023-07-09 14:34] LABS: SARS Covid-2 Antigen negative (Negative)
--- NOTE | 2023-07-09 14:36 | W.ED.SOB ---
HPI - SOB/Dyspnea General: Chief Complaint: Shortness of Breath/Dyspnea Stated Complaint: SOB Time Seen by Provider: 07/09/23 13:27 History of Present Illness: HPI Narrative: 87-year-old female with a history of chronic hypoxemic respiratory failure on 2 to 3 L nasal cannula at all times at home, afibrillation on Eliquis, and insulin-dependent diabetes who presents the emergency room with weakness and shortness of breath. She says over the last 3 days or so she is felt very weak. She has had some mild increased work of breathing. She states she slid out of bed this morning and could not get up. She has no altered mental status. No focal motor deficits. She had some cough. She is short of breath. She says she feels generally weak. She had some malaise. No abdominal pain. No nausea or vomiting. No dysuria. Review of Systems Narrative: Constitutional symptoms: Negative except as documented in HPI. Skin symptoms: Negative except as documented in HPI. Eye symptoms: Negative except as documented in HPI. ENMT symptoms: Negative except as documented in HPI. Respiratory symptoms: Negative except as documented in HPI. Cardiovascular symptoms: Negative except as documented in HPI. Gastrointestinal symptoms: Negative except as documented in HPI. Genitourinary symptoms: Negative except as documented in HPI. Musculoskeletal symptoms: Negative except as documented in HPI. Neurologic symptoms: Negative except as documented in HPI. Psychiatric symptoms: Negative except as documented in HPI. Endocrine symptoms: Negative except as documented in HPI. [facility] ED PFSH: Medical History (Updated 07/09/23 @ 15:16 by Citlalli Walton MD) Paroxysmal A-fib ANNIE (acute kidney injury) Hyperkalemia Wheezing New onset of congestive heart failure Acute respiratory failure with hypoxia Colon cancer Diabetes mellitus Hyponatremia Hypertension Fracture, humerus closed Obesity, Class II, BMI 35-39.9 Closed fracture of shaft of left humerus Shortness of breath Lower extremity edema Family History Daughter No problems noted. Mother Cancer Diabetes Father Cancer Diabetes Stroke Other Hypertension Social History Smoking and tobacco/nicotine status: never used tobacco/nicotine Alcohol intake: never Substance/Drug Use: never Physical Exam Narrative: EXAM NARRATIVE: General: Alert, no acute distress. Skin: Warm, dry. Head: Normocephalic, atraumatic. Neck: Supple, trachea midline. Eye: Extraocular movements are intact. Ears, nose, mouth and throat: mucosa moist. Cardiovascular: Regular, Normal peripheral perfusion. Respiratory: Lungs are clear to auscultation, respirations are non-labored, breath sounds are equal, Symmetrical chest wall expansion. Gastrointestinal: Soft, Nontender, Non distended, Normal bowel sounds. Musculoskeletal: Normal ROM, no deformity. Neurological: Alert and oriented, No focal neurological deficit observed. Psychiatric: Cooperative, appropriate mood & affect. Course Vital Signs: Vital signs: Vital Signs Temperature 99.7 F H 07/09/23 13:26 Pulse Rate 77 07/09/23 14:45 Respiratory Rate 20 H 07/09/23 14:45 Blood Pressure 120/80 07/09/23 14:45 Pulse Oximetry 98 07/09/23 14:45 Oxygen Delivery Me thod Nasal Cannula 07/09/23 14:45 Oxygen Flow Rate 4 07/09/23 14:45 MDM - SOB/Dyspnea Medical Decision Making Medical decision making: Differential diagnosis including but not limited to and based on the above HPI, review of systems and physical exam: Patient states she has had increased diuresis recently Sulamyd be concern for renal failure. Also infection such as UTI, pneumonia, flu or COVID. Orders placed to evaluate differential diagnosis based on the above differential, HPI and physical exam Lab Review: Laboratory results were reviewed and interpreted by myself the emergency room physician. Patient is influenza B positive. Hemoglobin is 9.4. BUN and creatinine are 17 and 1.1. Her sodium is 129 and her potassium is 5.0. Chest x-ray: Patient has stable cardiomegaly. Radiology has some concern for an effusion. This was reviewed and interpreted by myself the ER physician. EKG: Time 1340 p.m. rate 77 atrial fibrillation with controlled rate, No ST-T changes, no ectopy, This was reviewed and interpreted by myself the ER physician. Reexamination: Patient is oxygenating fairly well on 3 to 4 L nasal cannula. She does not have any increased work of breathing at rest. Apparently she does not have any help at home and today was too weak to even walk from the bathroom to the bed. She fell at that time. Family was with her and helped her down. They do not feel that she can go home in this state. Lab Data 07/09/23 13:45 07/09/23 13:45 Labs/Radiology: Laboratory Results WBC 9.73 10^3/uL (3.29-11.43) 07/09/23 13:45 RBC 4.20 10^6/uL (3.85-5.65) 07/09/23 13:45 Hgb 9.40 g/dL (11.27-16.99) L 07/09/23 13:45 Hct 33.2 % (36-47) L 07/09/23 13:45 MCV 79.0 fl (85-98) L 07/09/23 13:45 MCH 22.4 pg (27-33) L 07/09/23 13:45 MCHC 28.3 g/dL (30-55) L 07/09/23 13:45 RDW 21.9 % (12.1-15.1) H 07/09/23 13:45 Plt Count 303 10^3/cmm (157-399) 07/09/23 13:45 MPV 8.6 fL (7.4-10.4) 07/09/23 13:45 Neut % (Auto) 73.6 % 07/09/23 13:45 Lymph % (Auto) 14.5 % 07/09/23 13:45 [place] % (Auto) 11.0 % 07/09/23 13:45 Eos % (Auto) 0.3 % 07/09/23 13:45 Baso % (Auto) 0.2 % 07/09/23 13:45 Neut # (Auto) 7.16 10^3/uL (1.8-7.7) 07/09/23 13:45 Lymph # (Auto) 1.4 10^3/uL (0.8-4.8) 07/09/23 13:45 [place] # (Auto) 1.1 10^3/uL (0.2-0.9) H 07/09/23 13:45 Eos # (Auto) 0.0 10^3/uL (0.0-0.8) 07/09/23 13:45 Baso # (Auto) 0.0 10^3/uL (0.0-0.1) 07/09/23 13:45 Nucleated RBC % (auto) 0 % 07/09/23 13:45 Nucleated RBCs # 0.0 /100WBC 07/09/23 13:45 Sodium 129 mmol/L (136-145) L 07/09/23 13:45 Potassium 5.0 mmol/L (3.5-5.1) 07/09/23 13:45 Chloride 87 mmol/L (98-107) L 07/09/23 13:45 Carbon Dioxide 37 mmol/L (22-29) H 07/09/23 13:45 Anion Gap 10.0 (5-19) 07/09/23 13:45 BUN 17 mg/dL (8-23) 07/09/23 13:45 Creatinine 1.1 mg/dL (0.5-0.9) H 07/09/23 13:45 GFR Calculation Not Reportable 07/09/23 13:45 Glucose 217 mg/dL (65-115) H 07/09/23 13:45 Calculated Osmolality 276 mOsm/kg (285-295) L 07/09/23 13:45 Calcium 8.7 mg/dL (8.5-10.5) 07/09/23 13:45 Total Bilirubin 0.4 mg/dL (0.15-1.2) 07/09/23 13:45 AST 18 U/L (0-32) 07/09/23 13:45 ALT 12 U/L (0-33) 07/09/23 13:45 Alkaline Phosphatase 107 U/L (35-105) H 07/09/23 13:45 Troponin T Baseline 54 ng/L (0-10) H 07/09/23 13:45 C-Reactive Protein 6.7 mg/L (0.0-4.9) H 07/09/23 13:45 NT-Pro-B Natriuret Pep 2752 pg/mL (0-450) H 07/09/23 13:45 Total Protein 6.8 g/dL (6.6-8.7) 07/09/23 13:45 Albumin 3.4 g/dL (3.5-5.2) L 07/09/23 13:45 Globulin 3.4 g/dL (1.3-4.6) 07/09/23 13:45 Urine Color Yellow (Yellow) 07/09/23 14:56 Urine Appearance Sl hazy (CLEAR) A 07/09/23 14:56 Urine pH 5 (5-7) 07/09/23 14:56 Ur Specific [place] 1.015 (1.005-1.030) 07/09/23 14:56 Urine Protein Trace (Negative) 07/09/23 14:56 Urine Glucose (UA) Norm (Normal) 07/09/23 14:56 Urine Ketones Negative (Negative) 07/09/23 14:56 Urine Blood Neg (Negative) 07/09/23 14:56 Urine Nitrate Positive (Negative) H 07/09/23 14:56 Urine Bilirubin Neg (Negative) 07/09/23 14:56 Urine Urobilinogen Norm mg/dL (Negative) 07/09/23 14:56 Ur Leukocyte Esterase 2+ (Negative) H 07/09/23 14:56 Amorphous Sediment Not Reportable 07/09/23 14:56 Influenza Type A Ag Negative (Negative) 07/09/23 13:40 Influenza Type B Ag Positive (Negative) H 07/09/23 13:40 SARS-CoV-2 Ag (Rapid) negative (Negative) 07/09/23 14:12 All radiology interpretation(s) finalized by discharge Other Data Assessment and plan: Influenza B UTI Generalized weakness Falls Chronic hypoxemic respiratory failure Atrial fibrillation - PO Tamiflu - IV rocephin -Spoke at length with family and the family and the patient feel like she cannot go home at this time because she is too weak to walk and has no assistance. -I discussed the patient with the hospitalist on-call, Dr. Owusu, who is admitting the patient. - Discussed findings and plan with patient. Answered any questions. - All laboratory values were reviewed and interpreted personally by myself, the ER physician - All imaging was reviewed and interpreted personally by myself, the ER physician. - Evaluation and treatment of this problem were appropriate in the emergency setting Discharge Plan Discharge Patient Disposition: Admitted As Inpatient Clinical Impression: Influenza B, Generalized weakness, Atrial fibrillation Condition: Stable Coding Level of Care Code ED Anode Machine Operator for Hawa Perez
[2023-07-09 15:12] LABS: Bilirubin Urine Neg (Negative); Blood Urine Neg (Negative); Glucose Urine UA Norm (Normal); Ketones Urine Negative (Negative); Leukocyte Esterase Urine 2+ (Negative); Nitrate Urine Positive (Negative); Protein Urine Trace (Negative); Specific Gravity, Urine 1.015 (1.005-1.030); Urine Appearance SL Hazy (CLEAR); Urine Color Yellow (Yellow); Urobilinogen Urine Norm (Negative); pH Urine 5 (5-7)
[2023-07-09 15:30] LABS: Add Urine Culture? Yes; Amorphous Sediment Urine TRACE /hpf; Bacteria Urine 2+ /hpf; Mucus Urine TRACE /hpf; RBC Urine RARE /hpf (0-2); Renal Epithelial Cells Urine 0-4 /hpf; Squamous Epithelial Cell Urine 0-4 /hpf (0-5); Transitional Epi Cells Urine 0-4 /hpf; WBC Urine 55-80 /hpf (0-5)
[2023-07-09] MEDS: cefTRIAXone 1,000 MG in sodium chloride 0.9% (plus) 50 ML 100 MG IV (15:56)
[2023-07-09] MEDS: oseltamivir phosphate 75 mg Capsule PO (15:56)
[2023-07-09 16:10] LABS: Troponin 5 2HR 42.94 ng/L (0-10); Troponin 5 2HR Delta -11.06 ABS# (0-10)
--- NOTE | 2023-07-09 16:40 | P.HP_ITS ---
Providers/Chief Complaint 2 Primary Care Provider: Marleni Donaldson APN Chief Complaint: SOB History of Present Illness Shelley Balderrama is a 87 year old female with past medical history of type 2 diabetes mellitus, atrial fibrillation, diastolic heart failure, recent diagnosis of colon cancer post hemicolectomy without any transport chemoradiation, chronic anticoagulation with Eliquis, hypothyroidism, chronic hyponatremia who was recently discharged from the hospital within last 1 month when she was diagnosed of diastolic heart failure presented back to the ER today because of worsening weakness, lethargy, mild difficulty breathing over the last 1 week. At first family thought difficulty breathing and weakness is because she is retaining fluid for which we increased the dose of Lasix. As per the sister patient has also had few episodes of confusion. In the ER she was found to have influenza B, hyponatremia, UTI. Patient on examination is tired appearing, weak Review of Systems 2 General: Reports: 10 or more systems reviewed and unremarkable except in HPI and below Const: Denies: fever(s), chills, body aches, change in appetite, change in weight, malaise, night sweats, diaphoresis, change in sleep pattern, daytime sleepiness or snoring Eyes: Denies: change in vision, blurry vision, photophobia, eye discomfort or eye discharge ENMT: Denies: throat pain, enlarged tonsils, hoarseness, mouth pain, oral sores, dry mouth, tinnitus, nasal congestion or post nasal drip Card: Denies: chest pain, palpitations, irregular heart rhythm, edema, swelling of feet/ankles, lightheadedness, syncope, pre-syncope, dyspnea on exertion, orthopnea, leg pain with exertion or acrocyanosis Resp: Denies: dyspnea, productive cough, non-productive cough, wheezing, stridor, pain on inspiration, change in phlegm color, hemoptysis or chest congestion GI: Denies: abdominal pain, nausea, vomiting, hematemesis, coffee ground emesis, dysphagia, heartburn, diarrhea, constipation, bloating, GI cramping, change in bowel habits, pain on defecation, hematochezia or melena : Denies: flank pain, dysuria, urinary frequency, urinary urgency, urinary hesitancy, nocturia or hematuria Musc: Denies: neck pain, back pain, extremity pain, joint pain, joint swelling, joint redness, joint stiffness or limited range of motion Neuro: Denies: headache(s), numbness in extremities, weakness in extremities, sensory changes, lack of coordination, difficulty walking, frequent falls, dizziness, vertigo, confusion, Slurred speech present, difficulty communicating thoughts or seizure-like activity Psych: Denies: anxiety, depression, mood swings, panic attacks, hopelessness or irritability Endo: Denies: polyuria, polydipsia, tired all the time, cold intolerance, excessive sweating, flushing or heat intolerance Donell/Lymph: Denies: easy bruising or easy bleeding All/Imm: Denies: tongue swelling, facial swelling or acute wheezing Medications/Allergies Home Medications Medication Instructions Recorded Confirmed Last Taken Type Clam Shell Style Humeral Brace #1 ea 01/11/20 07/09/23 Unknown Rx insulin glargine 100 unit/mL 54 unit SUBCUT BID 01/11/20 07/09/23 07/09/23 History subcutaneous solution (Lantus U-100 Insulin) temazepam 30 mg capsule 30 mg PO BEDTIME 10/19/20 07/09/23 07/08/23 History albuterol sulfate 90 mcg/actuation 2 puff inhalation QID PRN 06/06/23 07/09/23 Unknown History aerosol inhaler Shortness Of Breath cetirizine 10 mg tablet 10 mg PO DAILY 06/06/23 07/09/23 07/09/23 History guaifenesin 600 mg tablet, 600 mg PO Q12H PRN Congestion 06/06/23 07/09/23 Unknown History extended release 12 hr (Mucinex) levothyroxine 75 mcg tablet 75 mcg PO QAM 06/06/23 07/09/23 07/09/23 History pantoprazole 40 mg tablet,delayed 40 mg PO DAILY 06/06/23 07/09/23 07/09/23 History release albuterol sulfate 90 mcg/actuation 2 inh inhalation Q8H PRN shortness 06/09/23 07/09/23 Unknown Rx aerosol inhaler of breath or wheezing #6.7 grams apixaban 5 mg tablet (Eliquis) 5 mg PO BID@0900,2100 #60 tabs 06/09/23 07/09/23 07/09/23 Rx furosemide 20 mg tablet (Lasix) 20 mg PO DAILY #60 tabs 06/09/23 07/09/2324 Rx diltiazem HCl 120 mg 120 mg PO DAILY 07/09/23 07/09/23 07/09/23 History capsule,extended release 24 hr potassium chloride 10 mEq 10 meq PO DAILY 07/09/23 07/09/23 07/09/23 History tablet,extended release Allergies Allergy/AdvReac Type Severity Reaction Status Date / Time amlodipine Allergy Unknown Unknown Verified 07/09/23 14:18 Penicillins Allergy Unknown ALGY-Rash Verified 07/09/23 14:18 ibuprofen AdvReac Unknown Unknown Verified 07/09/23 14:18 metformin AdvReac Unknown Unknown Verified 07/09/23 14:18 PFSH Acute 2 PFSH: Medical History (Updated 07/09/23 @ 17:14 by Asher Owusu MD) Anemia Diastolic heart failure Hypertension Shortness of breath Paroxysmal A-fib ANNIE (acute kidney injury) Hyperkalemia Wheezing New onset of congestive heart failure Acute respiratory failure with hypoxia Colon cancer Diabetes mellitus Hyponatremia Fracture, humerus closed Obesity, Class II, BMI 35-39.9 Closed fracture of shaft of left humerus Lower extremity edema Surgical History (Updated 07/09/23 @ 17:14 by Asher Owusu MD) H/O hemicolectomy Family History Daughter No problems noted. Mother Cancer Diabetes Father Cancer Diabetes Stroke Other Hypertension Social History Smoking and tobacco/nicotine status: never used tobacco/nicotine Alcohol intake: never Substance/Drug Use: never Vitals/I&O/Wt Last Vital Signs Temp 99.7 F H 07/09/23 13:26 Pulse 79 07/09/23 15:59 Resp 16 07/09/23 15:59 BP 138/76 07/09/23 15:59 Pulse Ox 93 07/09/23 15:59 O2 Del Method Nasal Cannula 07/09/23 15:59 O2 Flow Rate 3.5 07/09/23 15:59 Weight last 48 hrs Weight 89.358 kg Physical Exam 2 Narrative: General: No acute distress, AO x3, chronically sick appearing, generalized weak, dehydrated HEENT: PERRLA, pupils bilaterally equal and reactive Chest: Bilateral bronchial breath sounds all over lung banerjee with occasional rhonchi and fine crackles present at the bases CVS: S1-S2 regular, no murmurs, no tachycardia, no gallops, no rubs Abdomen: Soft, nontender, no organomegaly, bowel sounds present Neuro: No focal deficits, no facial deformity, AO x3, power 5/5 in all limbs Data 07/09/23 13:45 07/09/23 13:45 Micro: Microbiology 07/09/23 14:13 Blood Culture - Preliminary Blood SPECIMEN COLLECTED 07/09/23 13:45 Blood Culture - Preliminary Blood SPECIMEN COLLECTED A&P Assessment and plan (1) Generalized weakness: Most likely in setting of combination of influenza B, UTI and hyponatremia. Fall precaution. Physical therapy. (2) Influenza B: Patient complaining of shortness of breath. Currently on 3 L of oxygen supplementation. Given advanced age, generalized weakness and new oxygen requirement for now we will start on Tamiflu 75 mg twice daily for 7 days. Supportive treatment. Pulmonary toilet with incentive spirometry. Will continue to monitor if needed will start on low-dose steroid. (3) UTI (urinary tract infection): Follow-up urine culture. Check blood culture. For now start on IV ceftriaxone 1 g daily. (4) Hyponatremia: As per the family member has history of hyponatremia in the past. Previously was on sodium tablets which were discontinued on last discharge. Patient is also avoiding salt at home which is new for her because previously she used to take a lot of salt. Check urine lites. Loyd catheterization for strict input output charting. Could be in setting of dehydration. Start on gentle IV hydration while monitoring for fluid overload with normal saline at 50 cc/h. Salt tablet 1 g twice daily for now. Repeat BMP at 10 PM. (5) Diastolic heart failure: Currently euvolemic. Watch for fluid overload. Had echocardiogram done within the last 1 month which showed EF of 81%, grade 3 diastolic dysfunction, LVH severely low gradient aortic valve stenosis with area of 0.9, moderate TR, mild pulmonary hypertension with PASP of 42 mmHg (6) Anemia: Chronic. Seems to be stable. Patient does have history of recent hemicolectomy for colon cancer. Check iron panel, vitamin B12 and folate levels. Will start on IV iron supplementation accordingly. (7) Shortness of breath: Could be in setting of influenza B worse with generalized weakness versus possible diastolic heart failure though heart failure seems less likely for now. Oxygen supplementation keeping saturation over 90%. Nebulization treatment with Pulmicort twice daily, ipratropium, Xopenex every 6 hours. (8) Atrial fibrillation: Rate controlled. Continue with Cardizem. Continue with home dose of Eliquis 5 mg twice daily. (9) Hypertension: Goal blood pressure less than 140/90 mmHg. Continue with home dose of Cardizem. Monitor blood pressures daily. Plan CODE STATUS: Discussed in detail with the patient at bedside. Daughter and sister would be the DPOA. DNR/DNI. Carb consistent diet Protonix OPD prophylaxis Eliquis will be sufficient for DVT prophylaxis Attestations 2 Medical Necessity Statement*: Admission for more than 2 midnights for management of generalized weakness in setting of influenza B, hyponatremia, UTI in a patient with history of diastolic heart failure, recent hemicolectomy for colon cancer Diagnoses Generalized weakness R53.1 Influenza B J10.1 UTI (urinary tract infection) N39.0 Hyponatremia E87.1 Diastolic heart failure I50.30 Anemia D64.9 Shortness of breath R06.02 Atrial fibrillation I48.91 Hypertension I10
--- NOTE | 2023-07-09 16:58 | PC.NURSE ---
report attempted, nurse unavailable
[2023-07-09 17:15] LABS: Lactic Sepsis W/Reflex 1.4 mmol/L (0.5-2.2)
[2023-07-09 17:22] LABS: Procalcitonin 0.08 ng/mL (0-0.5)
--- NOTE | 2023-07-09 17:41 | PC.NURSE ---
attempted report, no answer
[2023-07-09 17:50] LABS: Iron 26 ug/dL (37-145); Percent Saturation 7.7 % (20-50); Total Iron Binding Capacity 334 mcg/dl; Unsaturated Iron Binding 308 ug/dL (112-347)
[2023-07-09 18:05] LABS: Vitamin B12 347 pg/mL (232-1245)
[2023-07-09 19:10] LABS: Potassium, Radom Urine 33 mmol/L; Urine Random Chloride 24 mmol/L; Urine Random Sodium 22 mmol/L
[2023-07-09] MEDS: insulin glargine 100 units/1 mL 40 UNIT SUBCUT (19:22)
[2023-07-09] MEDS: sodium chloride 1 gm Tablet PO (19:23)
[2023-07-09 19:31] LABS: Glucose Point of Care 199 mg/dL (70-110)
[2023-07-09] MEDS: temazepam 15 mg Capsule 30 MG PO (21:52)
[2023-07-09] MEDS: apixaban 5 mg Tablet PO (21:52)
[2023-07-09] MEDS: insulin lispro 100 unit/1 mL SUBCUT (21:53)
[2023-07-09 22:17] LABS: Anion Gap 11.3 (5-19); Blood Urea Nitrogen 16 mg/dL (8-23); Calcium 8.6 mg/dL (8.5-10.5); Carbon Dioxide 35 mmol/L (22-29); Chloride 87 mmol/L (98-107); Creatinine Clr Calc Pharmacy 39.6852; Glucose 258 mg/dL (65-115); Osmolality Calculated 276 mOsm/kg (285-295); Potassium 5.3 mmol/L (3.5-5.1); Sodium 128 mmol/L (136-145)
[2023-07-10] VITALS (13 sets, daily range): BP systolic 104–155; BP diastolic 60–91; PULSE 75–96; RESP 19–29; TEMP 36.7–37.1; O2SAT 89–98; BMI 37.4
--- NOTE | 2023-07-10 01:19 | PC.NURSE ---
NS fluids held per Dr Carr orders.
[2023-07-10 02:07] LABS: Glucose Point of Care 191 mg/dL (70-110)
[2023-07-10] MEDS: FUROsemide 10 mg/mL SDV 4mL 40 MG IVP ×2 (02:28→08:29)
[2023-07-10 04:48] LABS: Basophils % 0.4 %; Eosinophils # 0.1 10^3/uL (0.0-0.8); Eosinophils % 1.2 %; Hematocrit 33.5 % (36-47); Lymphocytes % 12.3 %; Mean Corpuscular HGB Conc 27.8 g/dL (30-55); Mean Corpuscular Hemoglobin 22.2 pg (27-33); Mean Corpuscular Volume 80.1 fl (85-98); Mean Platelet Volume 9.1 fL (7.4-10.4); Monocytes # 1.1 10^3/uL (0.2-0.9); Monocytes % 12.7 %; Neutrophils # 6.11 10^3/uL (1.8-7.7); Neutrophils % 72.9 %; Nucleated Red Blood Cells % 0 %; Platelet Count 324 10^3/cmm (157-399); Red Blood Count 4.18 10^6/uL (3.85-5.65); Red Cell Distribution Width 21.8 % (12.1-15.1); White Blood Count 8.37 10^3/uL (3.29-11.43)
[2023-07-10 05:01] LABS: Estmated Average Glucose 200; Hemoglobin A1C 8.6 % (4.0-6.0)
[2023-07-10 05:06] LABS: Alanine Aminotransferase 12 U/L (0-33); Albumin Level 3.4 g/dL (3.5-5.2); Alkaline Phosphatase 107 U/L (35-105); Anion Gap 8.8 (5-19); Aspartate Amino Transferase 18 U/L (0-32); Blood Urea Nitrogen 16 mg/dL (8-23); Calcium 9.2 mg/dL (8.5-10.5); Chloride 87 mmol/L (98-107); Creatinine Clr Calc Pharmacy 33.5798; Globulin 3.6 g/dL (1.3-4.6); Glucose 151 mg/dL (65-115); Magnesium 2.1 mg/dL (1.7-2.3); Osmolality Calculated 278 mOsm/kg (285-295); Phosphorus 4.6 mg/dL (2.5-4.5); Potassium 4.8 mmol/L (3.5-5.1); Sodium 132 mmol/L (136-145); Total Bilirubin 0.3 mg/dL (0.15-1.2)
[2023-07-10 05:07] LABS: Chol HDL Ratio 2.79 mg/dL (0.0-4.40); Cholesterol 109 mg/dL (0-200); HDL Cholesterol 39 mg/dL (60-100); LDL Cholesterol Calculated 57 mg/dL (50-129); LDL HDL Ratio 1.46 RATIO (0.00-3.22); Triglycerides 66 mg/dL (0-150)
[2023-07-10 05:09] LABS: Carbon Dioxide 41 mmol/L (22-29)
[2023-07-10 05:12] LABS: Procalcitonin 0.08 ng/mL (0-0.5)
[2023-07-10 06:35] LABS: Glucose Point of Care 146 mg/dL (70-110)
[2023-07-10] MEDS: levothyroxine 75 mcg Tablet PO (07:44)
[2023-07-10] MEDS: insulin glargine 100 units/1 mL 40 UNIT SUBCUT ×2 (08:22→17:43)
[2023-07-10] MEDS: insulin lispro 100 unit/1 mL SUBCUT ×4 (08:22→20:27)
[2023-07-10] MEDS: sodium chloride 1 gm Tablet PO ×2 (08:23→17:11)
[2023-07-10] MEDS: dilTIAZem ER (24HR) 120 mg Capsule PO (08:23)
[2023-07-10] MEDS: pantoprazole DR 40 mg Tablet PO (08:24)
[2023-07-10] MEDS: acetaminophen 325 mg Tablet 650 MG PO ×2 (08:28→20:17)
[2023-07-10] MEDS: oseltamivir phosphate 30 mg Capsule PO ×2 (08:29→17:11)
[2023-07-10] MEDS: apixaban 5 mg Tablet PO ×2 (08:29→20:16)
--- NOTE | 2023-07-10 10:50 | P.PN_ITS ---
Subjective 2 Subjective: Overnight patient had developed fluid overload for which she received IV Lasix. Today morning she is on 3 L of oxygen supplementation. Daughter at bedside. Patient is more awake and alert but continues to appear tired. Denies any nausea vomiting, headache. Has remained hemodynamically stable and afebrile. Vitals/I&O/Wt Last Vital Signs Temp 98.2 F 07/10/23 08:34 Pulse 96 07/10/23 08:34 Resp 29 H 07/10/23 08:34 BP 112/60 07/10/23 08:34 Pulse Ox 92 07/10/23 08:34 O2 Del Method Nasal Cannula 07/10/23 08:34 O2 Flow Rate 4 07/10/23 08:34 FiO2 40 07/10/23 04:00 07/09/23 07/10/23 07/10/23 22:59 06:59 14:59 Intake Total 236 / 236 50 / 286 Output Total 450 / 450 1300 / 1750 700 / 700 Balance -214 / -214 -1250 / -1464 -700 / -700 Weight last 48 hrs Weight 95.821 kg Weight 95.821 kg Weight 89.358 kg Physical Exam 2 Narrative: General: No acute distress, AO x3, chronically sick appearing, generalized weak, dehydrated HEENT: PERRLA, pupils bilaterally equal and reactive Chest: Bilateral bronchial breath sounds all over lung banerjee with occasional rhonchi and fine crackles present at the bases CVS: S1-S2 regular, no murmurs, no tachycardia, no gallops, no rubs Abdomen: Soft, nontender, no organomegaly, bowel sounds present Neuro: No focal deficits, no facial deformity, AO x3, power 5/5 in all limbs Urinary Catheter Management: Loyd: Cath Placed During This Visit: yes Reason for Continuing Indwelling Catheter: Accurate Measurement of Urinary Output in Critically Ill Patients Urinary Catheter Date of Insertion: 07/09/23 Urinary Catheter Time of Insertion: 19:30 Data 07/10/23 03:59 07/10/23 03:59 Micro: Microbiology 07/09/23 14:13 Blood Culture - Preliminary Blood SPECIMEN COLLECTED 07/09/23 13:45 Blood Culture - Preliminary Blood SPECIMEN COLLECTED A&P Assessment and plan (1) Generalized weakness: Most likely in setting of combination of influenza B, UTI and hyponatremia. Fall precaution. Physical therapy. (2) Influenza B: Patient complaining of shortness of breath. Currently on 3 L of oxygen supplementation. Given advanced age, generalized weakness and new oxygen requirement for now we will start on Tamiflu. Decreased dose of Tamiflu to 30 mg twice daily as per creatinine clearance. Supportive treatment. Pulmonary toilet with incentive spirometry. Start on oral prednisone at 40 mg oral daily. (3) UTI (urinary tract infection): Follow-up urine culture, blood pressure. Continue with IV ceftriaxone 1 g daily. (4) Hyponatremia: As per the family member has history of hyponatremia in the past. Previously was on sodium tablets which were discontinued on last discharge. Patient is also avoiding salt at home which is new for her because previously she used to take a lot of salt. Check urine lites. Loyd catheterization for strict input output charting. IV Lasix 40 mg one-time. Sodium mildly improving to 132. Patient developed fluid overload on IV fluids. Will hold off on any further fluids for now. Repeat BMP in evening. Salt tablet 1 g twice daily for now. (5) Diastolic heart failure: Lasix as above. Had echocardiogram done within the last 1 month which showed EF of 81%, grade 3 diastolic dysfunction, LVH severely low gradient aortic valve stenosis with area of 0.9, moderate TR, mild pulmonary hypertension with PASP of 42 mmHg (6) Anemia: Chronic. Seems to be stable. Patient does have history of recent hemicolectomy for colon cancer. Iron panel consistent with iron deficiency anemia. Start on IV iron supplementation. (7) Shortness of breath: Could be in setting of influenza B worse with generalized weakness versus possible diastolic heart failure though heart failure seems less likely for now. Oxygen supplementation keeping saturation over 90%. Nebulization treatment with Pulmicort twice daily, ipratropium, Xopenex every 6 hours. (8) Atrial fibrillation: Rate controlled. Continue with Cardizem. Continue with home dose of Eliquis 5 mg twice daily. (9) Hypertension: Goal blood pressure less than 140/90 mmHg. Continue with home dose of Cardizem. Monitor blood pressures daily. Plan Type 2 diabetes mellitus: patient with history of recurrent episodes of hypoglycemia recently. Takes Lantus 54 units twice daily. For now continue with Lantus 40 units twice daily along with sliding scale. CODE STATUS: Discussed in detail with the patient at bedside. Daughter and sister would be the DPOA. DNR/DNI. Carb consistent diet Protonix OPD prophylaxis Eliquis will be sufficient for DVT prophylaxis Discharge plan: Await physical therapy evaluation. Patient is physically deconditioned and would benefit from SNF placement for a short-term basis given her second admission in the last 1 month. Discussed in detail with the family. Options for now SNF versus home with home health. Family would like to see the needs outpatient with physical therapy and then will decide. Attestations 2 Medical Necessity Statement*: Requires further hospitalization for management of generalized weakness in setting of influenza B, UTI, hyponatremia in a patient with history of diastolic heart failure Diagnoses Generalized weakness R53.1 Influenza B J10.1 UTI (urinary tract infection) N39.0 Hyponatremia E87.1 Diastolic heart failure I50.30 Anemia D64.9 Shortness of breath R06.02 Atrial fibrillation I48.91 Hypertension I10
[2023-07-10 12:29] LABS: Glucose Point of Care 191 mg/dL (70-110)
[2023-07-10] MEDS: predniSONE 20 mg Tablet 40 MG PO (12:52)
[2023-07-10] MEDS: iron sucrose 200 MG in sodium chloride 0.9% (100 ml) 100 ML 220 MG IV (12:52)
[2023-07-10 15:52] LABS: Anion Gap 12.4 (5-19); Blood Urea Nitrogen 17 mg/dL (8-23); Calcium 8.9 mg/dL (8.5-10.5); Carbon Dioxide 37 mmol/L (22-29); Chloride 89 mmol/L (98-107); Creatinine Clr Calc Pharmacy 36.3781; Glucose 231 mg/dL (65-115); Osmolality Calculated 287 mOsm/kg (285-295); Potassium 4.4 mmol/L (3.5-5.1); Sodium 134 mmol/L (136-145)
[2023-07-10] MEDS: cefTRIAXone 1,000 MG in sodium chloride 0.9% (plus) 50 ML 100 MG IV (17:09)
[2023-07-10 17:36] LABS: Glucose Point of Care 270 mg/dL (70-110)
[2023-07-10 20:25] LABS: Glucose Point of Care 420 mg/dL (70-110)
[2023-07-11] VITALS (11 sets, daily range): BP systolic 119–153; BP diastolic 68–83; PULSE 88–108; RESP 14–25; TEMP 36.4–37; O2SAT 91–97; BMI 37.8
[2023-07-11 00:38] LABS: Glucose Point of Care 345 mg/dL (70-110)
[2023-07-11 05:36] LABS: Basophils % 0.1 %; Hematocrit 36.5 % (36-47); Lymphocytes # 1.1 10^3/uL (0.8-4.8); Lymphocytes % 12.8 %; Mean Corpuscular HGB Conc 27.4 g/dL (30-55); Mean Corpuscular Hemoglobin 21.9 pg (27-33); Mean Corpuscular Volume 79.9 fl (85-98); Mean Platelet Volume 8.8 fL (7.4-10.4); Monocytes # 0.7 10^3/uL (0.2-0.9); Monocytes % 7.7 %; Neutrophils # 6.76 10^3/uL (1.8-7.7); Neutrophils % 78.9 %; Nucleated Red Blood Cells % 0 %; Platelet Count 331 10^3/cmm (157-399); Red Blood Count 4.57 10^6/uL (3.85-5.65); Red Cell Distribution Width 21.6 % (12.1-15.1); White Blood Count 8.57 10^3/uL (3.29-11.43)
[2023-07-11] MEDS: levothyroxine 75 mcg Tablet PO (05:49)
[2023-07-11 05:58] LABS: Alanine Aminotransferase 11 U/L (0-33); Albumin Level 3.6 g/dL (3.5-5.2); Alkaline Phosphatase 117 U/L (35-105); Anion Gap 11.8 (5-19); Aspartate Amino Transferase 16 U/L (0-32); Blood Urea Nitrogen 19 mg/dL (8-23); Calcium 9.3 mg/dL (8.5-10.5); Carbon Dioxide 38 mmol/L (22-29); Chloride 89 mmol/L (98-107); Creatinine Clr Calc Pharmacy 39.9382; Globulin 4.1 g/dL (1.3-4.6); Glucose 299 mg/dL (65-115); Osmolality Calculated 291 mOsm/kg (285-295); Potassium 4.8 mmol/L (3.5-5.1); Sodium 134 mmol/L (136-145); Total Bilirubin 0.2 mg/dL (0.15-1.2); Total Protein 7.7 g/dL (6.6-8.7)
[2023-07-11 06:13] LABS: Glucose Point of Care 299 mg/dL (70-110)
[2023-07-11] MEDS: oseltamivir phosphate 30 mg Capsule PO ×2 (08:36→18:18)
[2023-07-11] MEDS: sodium chloride 1 gm Tablet PO ×2 (08:36→18:19)
[2023-07-11] MEDS: insulin glargine 100 units/1 mL 40 UNIT SUBCUT (08:36)
[2023-07-11] MEDS: dilTIAZem ER (24HR) 120 mg Capsule PO (08:36)
[2023-07-11] MEDS: predniSONE 20 mg Tablet 40 MG PO (08:36)
[2023-07-11] MEDS: apixaban 5 mg Tablet PO ×2 (08:36→21:05)
[2023-07-11] MEDS: pantoprazole DR 40 mg Tablet PO (08:36)
[2023-07-11] MEDS: insulin lispro 100 unit/1 mL SUBCUT ×4 (08:36→21:05)
[2023-07-11] MEDS: FUROsemide 10 mg/mL SDV 4mL 40 MG IVP (09:11)
[2023-07-11 11:08] LABS: Glucose Point of Care 318 mg/dL (70-110)
[2023-07-11] MEDS: insulin glargine 100 units/1 mL 10 UNIT SUBCUT (11:28)
[2023-07-11] MEDS: acetaminophen 325 mg Tablet 650 MG PO (11:32)
[2023-07-11] MEDS: iron sucrose 200 MG in sodium chloride 0.9% (100 ml) 100 ML 220 MG IV (13:30)
--- NOTE | 2023-07-11 13:50 | P.PN_ITS ---
Subjective 2 Subjective: Today morning seen with sister at bedside. Patient denies any nausea, vomiting, headache. Sitting up in the bed. States she sat up in the chair for a while yesterday. Still waiting to work with physical therapy. As for the sister and patient he seems more awake and alert today. Has remained hemodynamically stable and afebrile. Overnight patient was placed on simple mask as she is a mouth breather when sleeping. Currently on nasal cannula 3 L oxygen supplementation saturating more than 92%. Vitals/I&O/Wt Last Vital Signs Temp 98.3 F 07/11/23 11:12 Pulse 108 H 07/11/23 11:12 Resp 16 07/11/23 11:12 BP 134/81 07/11/23 11:12 Pulse Ox 95 07/11/23 11:12 O2 Del Method Simple Mask 07/11/23 11:12 O2 Flow Rate 3 07/11/23 10:16 FiO2 40 07/10/23 20:49 07/10/23 07/11/23 07/11/23 22:59 06:59 14:59 Intake Total 890 / 1610 300 / 1910 480 / 480 Output Total 1425 / 3625 350 / 3975 1999 Balance -535 / -2015 -50 / -2065 -1520 / -1520 Weight last 48 hrs Weight 96.933 kg Weight 95.821 kg Weight 95.821 kg Physical Exam 2 Narrative: General: No acute distress, AO x3, chronically sick appearing, generalized weak, dehydrated HEENT: PERRLA, pupils bilaterally equal and reactive Chest: Bilateral bronchial breath sounds all over lung banerjee with occasional rhonchi and fine crackles present at the bases CVS: S1-S2 regular, no murmurs, no tachycardia, no gallops, no rubs Abdomen: Soft, nontender, no organomegaly, bowel sounds present Neuro: No focal deficits, no facial deformity, AO x3, power 5/5 in all limbs Urinary Catheter Management: Loyd: Cath Placed During This Visit: yes Reason for Continuing Indwelling Catheter: Accurate Measurement of Urinary Output in Critically Ill Patients Urinary Catheter Date of Insertion: 07/09/23 Urinary Catheter Time of Insertion: 19:30 Data 07/11/23 05:27 07/11/23 05:27 Micro: Microbiology 07/09/23 14:56 Urine Culture - Preliminary Urine,Clean Catch Gram Negative Rods 07/09/23 14:13 Blood Culture - Preliminary Blood NEGATIVE TO DATE 07/09/23 13:45 Blood Culture - Preliminary Blood NEGATIVE TO DATE A&P Assessment and plan (1) Generalized weakness: Most likely in setting of combination of influenza B, UTI and hyponatremia. Fall precaution. Physical therapy. (2) Influenza B: Patient complaining of shortness of breath. Currently on 3 L of oxygen supplementation. Given advanced age, generalized weakness and new oxygen requirement for now we will start on Tamiflu. Decreased dose of Tamiflu to 30 mg twice daily as per creatinine clearance. Supportive treatment. Pulmonary toilet with incentive spirometry. Start on oral prednisone at 40 mg oral daily. (3) UTI (urinary tract infection): Follow-up urine culture, blood pressure. Continue with IV ceftriaxone 1 g daily. (4) Hyponatremia: As per the family member has history of hyponatremia in the past. Previously was on sodium tablets which were discontinued on last discharge. Patient is also avoiding salt at home which is new for her because previously she used to take a lot of salt. Check urine lites. Loyd catheterization for strict input output charting. IV Lasix 40 mg one-time. Sodium mildly improving to 132. Patient developed fluid overload on IV fluids. Will hold off on any further fluids for now. Repeat BMP in evening. Salt tablet 1 g twice daily for now. (5) Diastolic heart failure: Lasix as above. Had echocardiogram done within the last 1 month which showed EF of 81%, grade 3 diastolic dysfunction, LVH severely low gradient aortic valve stenosis with area of 0.9, moderate TR, mild pulmonary hypertension with PASP of 42 mmHg (6) Anemia: Chronic. Seems to be stable. Patient does have history of recent hemicolectomy for colon cancer. Iron panel consistent with iron deficiency anemia. Start on IV iron supplementation. (7) Shortness of breath: Could be in setting of influenza B worse with generalized weakness versus possible diastolic heart failure though heart failure seems less likely for now. Oxygen supplementation keeping saturation over 90%. Nebulization treatment with Pulmicort twice daily, ipratropium, Xopenex every 6 hours. (8) Atrial fibrillation: Rate controlled. Continue with Cardizem. Continue with home dose of Eliquis 5 mg twice daily. (9) Hypertension: Goal blood pressure less than 140/90 mmHg. Continue with home dose of Cardizem. Monitor blood pressures daily. Plan Type 2 diabetes mellitus: patient with history of recurrent episodes of hypoglycemia recently. Takes Lantus 54 units twice daily. For now continue with Lantus 40 units twice daily along with sliding scale. CODE STATUS: Discussed in detail with the patient at bedside. Daughter and sister would be the DPOA. DNR/DNI. Carb consistent diet Protonix OPD prophylaxis Eliquis will be sufficient for DVT prophylaxis Plan for the day: Continue with IV ceftriaxone. Follow-up blood culture and urine culture. Urine culture for now growing gram-negative rods. Sodium level stable. Continue with oral salt tablets twice daily. IV Lasix 40 mg one-time. Oxygen supplementation keeping saturation over 90%. Wean accordingly. Separate mask when needed when patient sleeping. Cannot rule out patient having sleep apnea. Would benefit with sleep study as an outpatient. Continue with IV iron. Continue with oral Tamiflu 30 mg twice daily as per creatinine clearance which is improving at 55 today. Monitor BMP daily. Out of bed to chair. Physical therapy. Blood sugars elevated most likely in setting of oral prednisone. Continue with prednisone for 5 days. Increase Lantus to 50 units twice daily, sliding scale to moderate dose protocol. Discharge plan: Await physical therapy evaluation. Patient is physically deconditioned and would benefit from SNF placement for a short-term basis given her second admission in the last 1 month. Discussed in detail with the family. Options for now SNF versus home with home health. Patient would like to go to SNF for further rehabitation. Case management alerted. Attestations 2 Medical Necessity Statement*: Requires further hospitalization for management of generalized weakness in setting of influenza B, acute on chronic hyponatremia, UTI while safe discharge planning is sought. Diagnoses Generalized weakness R53.1 Influenza B J10.1 UTI (urinary tract infection) N39.0 Hyponatremia E87.1 Diastolic heart failure I50.30 Anemia D64.9 Shortness of breath R06.02 Atrial fibrillation I48.91 Hypertension I10
[2023-07-11] MEDS: cefTRIAXone 1,000 MG in sodium chloride 0.9% (plus) 50 ML 100 MG IV (16:24)
[2023-07-11 17:16] LABS: Glucose Point of Care 278 mg/dL (70-110)
[2023-07-11] MEDS: insulin glargine 100 units/1 mL 50 UNIT SUBCUT (18:18)
[2023-07-11 20:59] LABS: Glucose Point of Care 349 mg/dL (70-110)
[2023-07-11] MEDS: trazodone 50 mg Tablet PO (22:31)
[2023-07-12] MEDS: acetaminophen 325 mg Tablet 650 MG PO ×2 (01:31→08:15)
[2023-07-12 03:29] LABS: Basophils % 0.2 %; Hematocrit 32.6 % (36-47); Lymphocytes # 1.2 10^3/uL (0.8-4.8); Lymphocytes % 10.2 %; Mean Corpuscular HGB Conc 28.2 g/dL (30-55); Mean Corpuscular Hemoglobin 22.9 pg (27-33); Mean Corpuscular Volume 81.1 fl (85-98); Mean Platelet Volume 8.8 fL (7.4-10.4); Monocytes # 1.2 10^3/uL (0.2-0.9); Monocytes % 10.1 %; Neutrophils # 8.86 10^3/uL (1.8-7.7); Neutrophils % 78.2 %; Nucleated Red Blood Cells % 0 %; Platelet Count 312 10^3/cmm (157-399); Red Blood Count 4.02 10^6/uL (3.85-5.65); Red Cell Distribution Width 21.6 % (12.1-15.1); White Blood Count 11.34 10^3/uL (3.29-11.43)
[2023-07-12 03:49] LABS: Alanine Aminotransferase 11 U/L (0-33); Albumin Level 3.3 g/dL (3.5-5.2); Alkaline Phosphatase 115 U/L (35-105); Anion Gap 11.3 (5-19); Aspartate Amino Transferase 14 U/L (0-32); Blood Urea Nitrogen 27 mg/dL (8-23); Calcium 9.1 mg/dL (8.5-10.5); Carbon Dioxide 37 mmol/L (22-29); Chloride 90 mmol/L (98-107); Globulin 3.5 g/dL (1.3-4.6); Glucose 326 mg/dL (65-115); Osmolality Calculated 296 mOsm/kg (285-295); Potassium 4.3 mmol/L (3.5-5.1); Sodium 134 mmol/L (136-145); Total Bilirubin 0.2 mg/dL (0.15-1.2); Total Protein 6.8 g/dL (6.6-8.7)
[2023-07-12 04:00] VITALS: BP 139/76; PULSE 99; RESP 21; TEMP 36.4; O2SAT 95
[2023-07-12 04:40] VITALS: PULSE 97
[2023-07-12] MEDS: levothyroxine 75 mcg Tablet PO (05:33)
[2023-07-12 06:17] LABS: Glucose Point of Care 253 mg/dL (70-110)
[2023-07-12 07:56] VITALS: BP 125/66; PULSE 96; TEMP 36.6; O2SAT 94
[2023-07-12 08:01] VITALS: PULSE 102; RESP 18; O2SAT 95
[2023-07-12] MEDS: insulin lispro 100 unit/1 mL SUBCUT (08:14)
[2023-07-12] MEDS: insulin glargine 100 units/1 mL 50 UNIT SUBCUT (08:14)
[2023-07-12] MEDS: pantoprazole DR 40 mg Tablet PO (08:15)
[2023-07-12] MEDS: dilTIAZem ER (24HR) 120 mg Capsule PO (08:15)
[2023-07-12] MEDS: sodium chloride 1 gm Tablet PO (08:15)
[2023-07-12] MEDS: oseltamivir phosphate 30 mg Capsule PO ×2 (08:15→11:58)
[2023-07-12] MEDS: apixaban 5 mg Tablet PO (08:15)
[2023-07-12] MEDS: predniSONE 20 mg Tablet 40 MG PO (08:15)
[2023-07-12] MEDS: FUROsemide 40 mg Tablet PO (09:49)
--- NOTE | 2023-07-12 11:41 | PC.NURSE ---
Provider ordered one time dose of Tamiflu 30mg for now along with the dose that she got at 0815.
[2023-07-12 11:45] LABS: Glucose Point of Care 196 mg/dL (70-110)
[2023-07-12] MEDS: iron sucrose 200 MG in sodium chloride 0.9% (100 ml) 100 ML 220 MG IV (11:58)
[2023-07-12 12:00] VITALS: BP 124/78; PULSE 92; TEMP 36.7; O2SAT 92
--- NOTE | 2023-07-12 12:12 | PC.SOCIAL ---
IMM Update pg 2 of IMM updated and reviewed w/ patient. Copy provided and copy dated, initialed and placed in chart.
--- NOTE | 2023-07-12 12:20 | PM.DCS ---
Discharge Providers Date of Admission: 07/09/23 16:56 Date of Discharge: July 12, 2023 Attending Provider at Admission: Asher Owusu MD Attending Provider at Discharge: Asher Owusu MD Primary Care Provider: Marleni Donaldson APN Diagnoses at Discharge Discharge Diagnosis (1) Generalized weakness: Status: Acute (2) Influenza B: Status: Acute (3) UTI (urinary tract infection): Status: Acute (4) Hyponatremia: Status: Acute (5) Diastolic heart failure: Status: Acute (6) Anemia: Status: Acute (7) Shortness of breath: Status: Acute (8) Atrial fibrillation: Status: Acute (9) Hypertension: Status: Acute Reason for Visit Reason for Visit: SOB Hospital Course Hospital Course Shelley Balderrama is a 87 year old female with past medical history of type 2 diabetes mellitus, atrial fibrillation, diastolic heart failure, recent diagnosis of colon cancer post hemicolectomy without any transport chemoradiation, chronic anticoagulation with Eliquis, hypothyroidism, chronic hyponatremia who was recently discharged from the hospital within last 1 month when she was diagnosed of diastolic heart failure presented back to the ER today because of worsening weakness, lethargy, mild difficulty breathing over the last 1 week. At first family thought difficulty breathing and weakness is because she is retaining fluid for which we increased the dose of Lasix. As per the sister patient has also had few episodes of confusion. In the ER she was found to have influenza B, hyponatremia, UTI. Patient on examination is tired appearing, weak Patient was admitted to the hospital for evaluation and management of generalized weakness which on admission was thought to be in setting of combination of UTI, influenza B and hyponatremia. On admission she was also found to be in mild congestive heart failure for which she started on IV diuresis. With IV diuresis for symptoms of CHF and hyponatremia resolved. During hospitalization her blood culture remain negative but urine culture came back positive for E. coli which is pansensitive. Patient responded well to the treatment and has been improving gradually. She worked with physical therapy who determined patient needing SNF placement for further rehabitation. Patient and family members were agreeable for discharge to SNF. She is been discharged in hemodynamically stable condition on oral Levaquin for 5 more days, Tamiflu for 3 more days, dose of Lasix has been changed to 40 mg oral daily. She is also to take 1 g of salt tablets twice daily for chronic hyponatremia. She is also to be on oral prednisone 40 mg for next 5 days. She should have repeat BMP in 1 week. Physical Exam Narrative: General: No acute distress, AO x3, chronically sick appearing but improving HEENT: PERRLA, pupils bilaterally equal and reactive Chest: Bilateral bronchial breath sounds all over lung banerjee with occasional rhonchi and fine crackles present at the bases CVS: S1-S2 regular, no murmurs, no tachycardia, no gallops, no rubs Abdomen: Soft, nontender, no organomegaly, bowel sounds present Neuro: No focal deficits, no facial deformity, AO x3, power 5/5 in all limbs Urinary Catheter Management: Loyd: Cath Placed During This Visit: yes Reason for Continuing Indwelling Catheter: Acute Urinary Retention or Obstruction Urinary Catheter Date of Insertion: 07/09/23 Urinary Catheter Time of Insertion: 19:30 Discharge Data Studies Completed and Pending Completed Studies During Hospitalization Category Date Time Status XR chest 1V portable 10061 Stat Exams 07/09/23 13:32 Completed Pending at discharge Category Date Time Status Blood Culture Stat Lab 07/09/23 14:13 Results Complete Blood Count w/Auto AM LABS Lab 07/13/23 04:00 Ordered Complete Blood Count w/Auto AM LABS Lab 07/14/23 04:00 Ordered Comprehensive Metabolic Panel AM LABS Lab 07/13/23 04:00 Ordered Comprehensive Metabolic Panel AM LABS Lab 07/14/23 04:00 Ordered Laboratory Results WBC 11.34 10^3/uL (3.29-11.43) 07/12/23 03:20 RBC 4.02 10^6/uL (3.85-5.65) 07/12/23 03:20 Hgb 9.20 g/dL (11.27-16.99) L 07/12/23 03:20 Hct 32.6 % (36-47) L 07/12/23 03:20 MCV 81.1 fl (85-98) L 07/12/23 03:20 MCH 22.9 pg (27-33) L 07/12/23 03:20 MCHC 28.2 g/dL (30-55) L 07/12/23 03:20 RDW 21.6 % (12.1-15.1) H 07/12/23 03:20 Plt Count 312 10^3/cmm (157-399) 07/12/23 03:20 MPV 8.8 fL (7.4-10.4) 07/12/23 03:20 Neut % (Auto) 78.2 % 07/12/23 03:20 Lymph % (Auto) 10.2 % 07/12/23 03:20 [place] % (Auto) 10.1 % 07/12/23 03:20 Eos % (Auto) 0.0 % 07/12/23 03:20 Baso % (Auto) 0.2 % 07/12/23 03:20 Neut # (Auto) 8.86 10^3/uL (1.8-7.7) H 07/12/23 03:20 Lymph # (Auto) 1.2 10^3/uL (0.8-4.8) 07/12/23 03:20 [place] # (Auto) 1.2 10^3/uL (0.2-0.9) H 07/12/23 03:20 Eos # (Auto) 0.0 10^3/uL (0.0-0.8) 07/12/23 03:20 Baso # (Auto) 0.0 10^3/uL (0.0-0.1) 07/12/23 03:20 Nucleated RBC % (auto) 0 % 07/12/23 03:20 Nucleated RBCs # 0.0 /100WBC 07/12/23 03:20 Sodium 134 mmol/L (136-145) L 07/12/23 03:20 Potassium 4.3 mmol/L (3.5-5.1) 07/12/23 03:20 Chloride 90 mmol/L (98-107) L 07/12/23 03:20 Carbon Dioxide 37 mmol/L (22-29) H 07/12/23 03:20 Anion Gap 11.3 (5-19) 07/12/23 03:20 BUN 27 mg/dL (8-23) H 07/12/23 03:20 Creatinine 1.0 mg/dL (0.5-0.9) H 07/12/23 03:20 GFR Calculation Not Reportable 07/12/23 03:20 Glucose 326 mg/dL (65-115) H 07/12/23 03:20 POC Glucose 196 mg/dL (70-110) H 07/12/23 11:42 Estimat Average Glucose 200 07/10/23 03:59 Hemoglobin A1c 8.6 % (4.0-6.0) H 07/10/23 03:59 Calculated Osmolality 296 mOsm/kg (285-295) H 07/12/23 03:20 Lactic Acid 1.4 mmol/L (0.5-2.2) 07/09/23 13:45 Calcium 9.1 mg/dL (8.5-10.5) 07/12/23 03:20 Phosphorus 4.6 mg/dL (2.5-4.5) H 07/10/23 03:59 Magnesium 2.1 mg/dL (1.7-2.3) 07/10/23 03:59 Iron 26 ug/dL (37-145) L 07/09/23 13:45 TIBC 334 mcg/dl 07/09/23 13:45 % Saturation 7.7 % (20-50) L 07/09/23 13:45 Unsat Iron Binding 308 ug/dL (112-347) 07/09/23 13:45 Total Bilirubin 0.2 mg/dL (0.15-1.2) 07/12/23 03:20 AST 14 U/L (0-32) 07/12/23 03:20 ALT 11 U/L (0-33) 07/12/23 03:20 Alkaline Phosphatase 115 U/L (35-105) H 07/12/23 03:20 Troponin T Baseline 54 ng/L (0-10) H 07/09/23 13:45 Troponin T 120 Minute 42.94 ng/L (0-10) H 07/09/23 15:25 Delta Troponin T -11.06 ABS# (0-10) L 07/09/23 15:25 C-Reactive Protein 6.7 mg/L (0.0-4.9) H 07/09/23 13:45 NT-Pro-B Natriuret Pep 2752 pg/mL (0-450) H 07/09/23 13:45 Total Protein 6.8 g/dL (6.6-8.7) 07/12/23 03:20 Albumin 3.3 g/dL (3.5-5.2) L 07/12/23 03:20 Globulin 3.5 g/dL (1.3-4.6) 07/12/23 03:20 Triglycerides 66 mg/dL (0-150) 07/10/23 03:59 Cholesterol 109 mg/dL (0-200) 07/10/23 03:59 LDL Cholesterol, Calc 57 mg/dL (50-129) 07/10/23 03:59 HDL Cholesterol 39 mg/dL (60-100) L 07/10/23 03:59 LDL/HDL Ratio 1.46 RATIO (0.00-3.22) 07/10/23 03:59 Cholesterol/HDL Ratio 2.79 mg/dL (0.0-4.40) 07/10/23 03:59 Vitamin B12 347 pg/mL (232-1245) 07/09/23 13:45 Folate 16.0 ng/mL (4.8-37.3) 07/10/23 03:59 Procalcitonin 0.08 ng/mL (0-0.5) 07/10/23 03:59 Urine Color Yellow (Yellow) 07/09/23 14:56 Urine Appearance Sl hazy (CLEAR) A 07/09/23 14:56 Urine pH 5 (5-7) 07/09/23 14:56 Ur Specific [place] 1.015 (1.005-1.030) 07/09/23 14:56 Urine Protein Trace (Negative) 07/09/23 14:56 Urine Glucose (UA) Norm (Normal) 07/09/23 14:56 Urine Ketones Negative (Negative) 07/09/23 14:56 Urine Blood Neg (Negative) 07/09/23 14:56 Urine Nitrate Positive (Negative) H 07/09/23 14:56 Urine Bilirubin Neg (Negative) 07/09/23 14:56 Urine Urobilinogen Norm mg/dL (Negative) 07/09/23 14:56 Ur Leukocyte Esterase 2+ (Negative) H 07/09/23 14:56 Urine RBC Rare /hpf (0-2) 07/09/23 14:56 Urine WBC 55-80 /hpf (0-5) H 07/09/23 14:56 Ur Squamous Epith Cells 0-4 /hpf (0-5) H 07/09/23 14:56 Ur Transition Epith Cell 0-4 /hpf 07/09/23 14:56 Ur Renal Epithelial Cell 0-4 /hpf 07/09/23 14:56 Amorphous Sediment Trace /hpf 07/09/23 14:56 Urine Bacteria 2+ /hpf (NONE) H 07/09/23 14:56 Urine Mucus Trace /hpf 07/09/23 14:56 Ur Random Sodium 22 mmol/L 07/09/23 18:03 Ur Random Potassium 33 mmol/L 07/09/23 18:03 Ur Random Chloride 24 mmol/L 07/09/23 18:03 Influenza Type A Ag Negative (Negative) 07/09/23 13:40 Influenza Type B Ag Positive (Negative) H 07/09/23 13:40 SARS-CoV-2 Ag (Rapid) negative (Negative) 07/09/23 14:12 Microbiology 07/09/23 14:56 Urine,Clean Catch Urine Culture - Final Escherichia coli 07/09/23 14:13 Blood Blood Culture - Preliminary NEGATIVE TO DATE 07/09/23 13:45 Blood Blood Culture - Preliminary NEGATIVE TO DATE Vitals Last Vital Signs Temp 98.0 F 07/12/23 12:00 Pulse 92 07/12/23 12:00 Resp 18 07/12/23 08:01 BP 124/78 07/12/23 12:00 Pulse Ox 92 07/12/23 12:00 O2 Del Method Oxymask 07/12/23 12:00 O2 Flow Rate 3 07/12/23 08:01 FiO2 40 07/11/23 22:00 Discharge Plan Discharge Patient Disposition: Home Condition: Stable Prescriptions: New prednisone 20 mg Tablet 40 mg PO DAILY Qty: 10 0RF levofloxacin 500 mg tablet 500 mg PO Q24H 5 Days Qty: 5 0RF oseltamivir [Tamiflu] 75 mg capsule 75 mg PO BID 5 Days Qty: 6 0RF sodium chloride 1,000 mg Tablet,Soluble 1,000 mg PO BID Qty: 60 0RF ferrous fumarate-vitamin C 200 mg (65 mg iron)-25 mg tablet extended release 1 tab PO DAILY Qty: 30 0RF Jardiance 25 mg tablet 25 mg PO DAILY Qty: 30 0RF Continued Lantus U-100 Insulin 100 unit/mL solution 54 unit SUBCUT BID (DME) Clam Shell Style Humeral Brace See Rx Instructions .Route .MEDSUPPLY Qty: 1 0RF Rx Instructions: As directed temazepam 30 mg capsule 30 mg PO BEDTIME cetirizine 10 mg Tablet 10 mg PO DAILY levothyroxine 75 mcg tablet 75 mcg PO QAM pantoprazole 40 mg tablet,delayed release (DR/EC) 40 mg PO DAILY albuterol sulfate 90 mcg/actuation HFA aerosol inhaler 2 puff INHALATION QID PRN (Reason: Shortness Of Breath) guaifenesin [Mucinex] 600 mg Tablet Extended Release 12hr 600 mg PO Q12H PRN (Reason: Congestion) Eliquis 5 mg Tablet 5 mg PO BID@0900,2100 Qty: 60 4RF albuterol sulfate 90 mcg/actuation HFA aerosol inhaler 2 inh inhalation Q8H PRN (Reason: shortness of breath or wheezing) Qty: 6.7 2RF diltiazem HCl 120 mg capsule,extended release 24hr 120 mg PO DAILY potassium chloride 10 mEq tablet extended release 10 meq PO DAILY Changed furosemide [Lasix] 20 mg tablet 40 mg PO DAILY Qty: 60 1RF Discharge Orders: Discharge Order (Routine); Ordered 07/12/23 Ordered By: Asher Owusu Referrals: [facility] [Outside] Donaldson,SULY Yepez [Primary Care Provider] - 7-10 days Discharge Diet: Cardiac and Diabetic Discharge Activity: Resume usual activity and Increase activity as tolerated Patient Instructions: Furosemide (By mouth) (Lasix), Prednisone (By mouth) (predniSONE Intensol, Prednicot, Deltasone, Yakov), Ascorbic Acid (By mouth) (Ascocid, C-500, C-Time w/Lauren Hips, Vitamin C250), Levofloxacin (By mouth) (Levaquin, Levaquin Leva-john paul), Oseltamivir (By mouth) (Tamiflu), Sodium Chloride (By mouth) (Natrum Mur), Heart Failure (DC), CHF Stoplight, Opioid Safety Activity Restrictions/Additional Instructions: Repeat BMP in 1 week. Restrict fluid intake to less than 1500 cc. Not prescribing salt restriction given history of chronic hyponatremia. Advised to check his weight daily at home. Is advised that weight today would be the dry weight and if body weight increases by around 5 pounds, patient is to take an extra dose of Lasix daily till body weight comes down to weight today. If not able to come down to dry body weight in 1 week, then is to call cardiology office for further recommendations. Patient was counseled in detail to take medications regularly as prescribed. Take prednisone which is a steroid for next 5 days. You will also be on Levaquin which is the antibiotic for next 5 days. You will be on Tamiflu for next 3 days twice daily. Discharge Attestations Time Spent in Discharge Care*: greater than 30 min Specific Discharge Activities: educating patient, educating and/or supporting family/caregiver, discussing with pcp/other providers, discussing with catalytic case operator/social workers/dc planners, documenting/other paperwork and evaluating patient/reviewing data Status at Discharge: Cognitive status at discharge: cognitively intact, Behavioral status at discharge: cooperative, Functional status at discharge: uses cane/walker, Overall status at discharge: patient is progressing back to baseline Quality Metrics Clinical Quality Measures [ No reported AMI, CVA or VTE this stay] Coding Level of Care Code 17528 Total time (in minutes) for Discharge: 60 Diagnoses Generalized weakness R53.1 Influenza B J10.1 UTI (urinary tract infection) N39.0 Hyponatremia E87.1 Diastolic heart failure I50.30 Anemia D64.9 Shortness of breath R06.02 Atrial fibrillation I48.91 Hypertension I10
[2023-07-12 13:37] VITALS: BP 124/78; PULSE 92; TEMP 36.7; O2SAT 92
--- NOTE | 2023-07-12 14:01 | PC.NURSE ---
Patient is leaving to [facility] via their transportation. Report is called to GEORGIA Todd.
== END 2023-07-12 14:38 | disposition skilled nursing facility (03) | DRG 690 ==
LOC: ER 15:16 → CSU 16:56
PROVIDERS: Admitting Provider Student in an Organized Health Care Education/Training Program; Emergency Provider Emergency Medicine; PCP Nurse Practitioner Family; Visit Provider Student in an Organized Health Care Education/Training Program
DX: N39.0 Urinary tract infection, site not specified (principal); I50.32 Chronic diastolic (congestive) heart failure; C18.9 Malignant neoplasm of colon, unspecified; E87.1 Hypo-osmolality and hyponatremia; B96.20 Unspecified Escherichia coli [E. coli] as the cause of diseases classified elsewhere; J10.1 Influenza due to other identified influenza virus with other respiratory manifestations; E11.9 Type 2 diabetes mellitus without complications; I48.0 Paroxysmal atrial fibrillation; I11.0 Hypertensive heart disease with heart failure; E03.9 Hypothyroidism, unspecified; E66.9 Obesity, unspecified; I35.0 Nonrheumatic aortic (valve) stenosis; I27.20 Pulmonary hypertension, unspecified; D64.9 Anemia, unspecified; Z11.52 Encounter for screening for COVID-19; Z79.01 Long term (current) use of anticoagulants; Z79.4 Long term (current) use of insulin; Z90.49 Acquired absence of other specified parts of digestive tract; Z68.37 Body mass index [BMI] 37.0-37.9, adult
CPT/HCPCS: 36415; 36416; 51702; 71045; 80048; 80053; 80061; 81001; 82436; 82607; 82746; 82962; 83036; 83540; 83550; 83605; 83735; 83880; 84100; 84133; 84145; 84300; 84443; 84484; 85025; 86140; 87040; 87077; 87086; 87186; 87426; 87804; 93005; 94660; 96365; 96372; 96375; 96376; 97161; 97166; 97530; 97535; 99285; J0696; J1756; J1815; J1940; J7512

== ENCOUNTER → 2023-08-08 15:30 | Outpatient (BNVA) | payer MEDICARE, SELFPAY | PROVIDERS: PCP Nurse Practitioner Family; Visit Provider Internal Medicine | DX: I50.30 Unspecified diastolic (congestive) heart failure (principal); I48.91 Unspecified atrial fibrillation | CPT/HCPCS: 36415; 80048; 83880; 99214 ==

== ENCOUNTER → 2023-09-11 12:31 | Outpatient (BNVA) | payer MEDICARE, SELFPAY | PROVIDERS: PCP Nurse Practitioner Family; Visit Provider Internal Medicine | DX: I48.91 Unspecified atrial fibrillation (principal); R60.0 Localized edema; R06.02 Shortness of breath; I35.0 Nonrheumatic aortic (valve) stenosis; I11.0 Hypertensive heart disease with heart failure; I50.30 Unspecified diastolic (congestive) heart failure; Z79.01 Long term (current) use of anticoagulants | CPT/HCPCS: 99214 ==

== ENCOUNTER 2023-12-27 08:04 | Observation (INO) | payer MEDICARE, SELFPAY ==
[2023-12-27] VITALS (7 sets, daily range): BP systolic 103–128; BP diastolic 54–72; PULSE 74–87; RESP 16–18; TEMP 37–37.5; O2SAT 91–97; BMI 35.4
--- NOTE | 2023-12-27 08:34 | CT_ITS ---
WS: [id number] CT ABDOMEN AND PELVIS WITH CONTRAST HISTORY: abd pain-hx of colon resection for turmor TECHNIQUE: Imaging performed of the abdomen and pelvis with IV contrast. Single phase imaging of the abdomen. Coronal and sagittal reformats are submitted. All CT scans at [facility] use at [facility] one of these dose optimization techniques: automated exposure control; mA and/or kV adjustment per patient size (includes targeted exams where dose is matched to clinical indication); or iterative re construction. IV CONTRAST: Omnipaque 350; 100 mL IV. Oral contrast: No DLP: 972.88 mGy.cm COMPARISON: 12/20/2022 Lower thorax: Motion artifact at the lung bases. No pulmonary nodule identified. Benign granuloma. Mi ld cardiac enlargement. No hiatal hernia. Liver/biliary system: Entire liver was not included. The superior RIGHT lobe of the liver is absent. Innumerable low-attenuation masses are present throughout the liver which were not present on 12/21/19 23. Liver is slightly enlarged. These masses range in size from a few millimeters to 1.3 cm. No bile duct dilatation. Gallbladder: Normal. No gallstones or wall thickening. No pericholecystic fluid. Pancreas: Marked atrophy. Spleen: Normal size spleen. No mass or infarct. Adrenal glands: Normal. Right kidney: Atrophy with numerous areas of cortical thinning and scarring. Indeterminate complex cy st 1.3 cm from the posterior kidney. Left kidney: Atrophied with marked cortical thinning and nonobstructing calcifications. Aorta: Moderate atherosclerosis with no aneurysm. Calcification at the origins of the celiac axis and SMA. Heavily calcified splenic artery and moderately calcified hepatic artery. Lymphadenopathy: There is extensive lymphadenopathy and carcinomatosis within the peritoneal cavity. There are a few lymph nodes near the celiac axis with the largest measuring 1.6 cm. Increasing metast atic deposits with omental carcinomatosis beginning along the midline and LEFT peritoneal cavity. The re are large mesenteric deposits extending through the omentum with the largest cluster measuring 11. 1 x 8.9 x 4.3 cm. This largest cluster of omental deposits and carcinomatosis is contiguous with the colon anastomotic site. Soft tissue enhancing nodule in the midline abdominal wall near the umbilicus 3.0 x 2.3 cm is likely an abnormal lymph node. Free fluid: There is a small amount of free fluid in the pelvis. Fluid is of slightly increased atten uation and enhancement. GI tract: Nondistended stomach with mild diffuse wall thickening. As noted in the above report there is a recurrent mass at the small bowel: Anastomotic site in the mid abdomen with adjacent carcinomato sis. Diffuse diverticulosis. Pelvis: Mildly complex free fluid in the pelvis. Atrophic uterus. Bones: Osteopenia. Increase in lumbar lordosis. Grade 1 anterolisthesis L4. T12 and L3 mild osteoporo tic compression fractures. CT/CT abdomen pelvis w con* [id number] IMPRESSION: 1. Diffuse hepatic metastatic disease. 2. Recurrent neoplasm at the small bowel and colon anastomosis. Large recurren t mass measuring 11.1 x 8.9 x 4.3 cm which is contiguous with significant oment al carcinomatosis. There are numerous metastatic deposits within the abdomen an d also in the pelvis. Suspected metastatic deposit along the midline abdominal wall at the incision site. 3. Small amount of complex free fluid in the pelvis. No free air. 4. Renal atrophy with scarring and cortical thinning.
--- NOTE | 2023-12-27 08:35 | ECG_ITS ---
[facility] Test Date: 2023-12-27 Pat Name: Shelley Balderrama Department: Room: Gender: Female Last Sorter: : 1935 Requested By: Jerry Gonzalez Order Number: [id number] Katharine MD: Janes Tyson M.D. Measurements Intervals [place] Rate: 84 P: 0 MS: 0 QRS: 112 QRSD: 141 T: -48 QT: 414 QTc: 489 Interpretive Statements ATRIAL FIBRILLATION INDETERMINATE AXIS RIGHT BUNDLE BRANCH BLOCK [120+ ms QRS DURATION, UPRIGHT V1, 40+ ms S IN I/aVL/V4/V5/V6] SEPTAL MYOCARDIAL INFARCTION , PROBABLY OLD [40+ ms Q WAVE IN V1/V2] MODERATE T-WAVE ABNORMALITY, CONSIDER LATERAL ISCHEMIA [-0.1+ mV T-WAVE IN I/aVL/V5/V6] MODERATE T-WAVE ABNORMALITY, CONSIDER INFERIOR ISCHEMIA [-0.1+ mV T-WAVE IN II/aVF] Compared to ECG 07/09/2023 13:40:34 Myocardial infarct finding now present Electronically Signed On 12-27-2023 10:32:19 CDT by Janes Tyson M.D. [email or web address]
--- NOTE | 2023-12-27 08:36 | ED_ITS ---
HPI - Abdominal Pain 2 General: Chief Complaint: Abdominal Pain Stated Complaint: abd pain Time Seen by Provider: 12/27/23 08:14 Source: patient and family Mode of arrival: wheelchair Limitations: no limitations History of Present Illness: This patient made her way to the emergency department because of persistent and progressive lower abdominal pain. History is provided both by the patient as well as accompanying family members. The patient apparently has been having some lower abdominal pain for least 2 weeks and for half probably longer. According to family members 1 of which had some a stomach bug approximately 2 weeks ago she related to them that she was having symptoms but it came to the past that she been having symptoms prior to the other family members illness. She states that she is primarily on a liquid diet and that she feels early satiety and feels full does not want to vomit. States she has been having bowel movements and passing urine relatively normal. She states that she has chronically has dark stools because she takes iron replacement but noted old blood on earlier this past week after stooling and stopped her Xarelto. She takes Xarelto for paroxysmal atrial fibrillation and stroke reduction she has not any other blood in her stool since that time and had a bowel movement this morning with no evidence of blood. She is also stopped her iron and therefore is not having dark stools either. She denies any fevers or chills, known bad food exposure, known exposure to preceding illness other than after mentioned. 1 month ago patient family reports that she is doing her activities of daily living without much assistance. She has had prior colon resection for cancer approxi-1 year ago. Family reports that she was told that they resected the entire tumor but has not had any follow-up or has not seen oncology. She has had no prior other abdominal surgeries. Associated Symptoms: Reports hematochezia; Denies chills, constipation, diarrhea, dysuria, fever(s), hematuria, hematemesis, melena and syncope Related Data Home Medications Medication Instructions Recorded Confirmed insulin glargine 100 unit/mL 54 unit SUBCUT BID 01/11/20 12/27/23 subcutaneous solution (Lantus U-100 Insulin) albuterol sulfate 90 mcg/actuation 2 puff inhalation QID PRN 06/06/23 12/27/23 aerosol inhaler Shortness Of Breath cetirizine 10 mg tablet 10 mg PO DAILY 06/06/23 12/27/23 levothyroxine 75 mcg tablet 75 mcg PO QAM 06/06/23 12/27/23 pantoprazole 40 mg tablet,delayed 40 mg PO QA 06/06/23 12/27/23 release diltiazem HCl 120 mg 120 mg PO DAILY 07/09/23 12/27/23 capsule,extended release 24 hr potassium chloride 10 mEq 10 meq PO DAILY 07/09/23 12/27/23 tablet,extended release amiodarone 200 mg tablet 200 mg PO DAILY 12/27/23 12/27/23 empagliflozin 25 mg tablet 25 mg PO QAM 12/27/23 12/27/23 (Jardiance) ferrous sulfate 325 mg (65 mg 325 mg PO [facility] 12/27/23 12/27/23 iron) tablet (FeroSul) furosemide 20 mg tablet (Lasix) 40 mg PO [facility] 12/27/23 12/27/23 Previous Rx's Medication Instructions Recorded sodium chloride 1,000 mg soluble 1,000 mg PO BID #60 tabs 07/12/23 tablet apixaban 5 mg tablet (Eliquis) 5 mg PO BID@0900,2100 #90 tabs 11/06/23 Allergies Allergy/AdvReac Type Severity Reaction Status Date / Time amlodipine Allergy Unknown Unknown Verified 09/11/23 13:10 Penicillins Allergy Unknown ALGY-Rash Verified 09/11/23 13:10 ibuprofen AdvReac Unknown Unknown Verified 09/11/23 13:10 metformin AdvReac Unknown Unknown Verified 09/11/23 13:10 Review of Systems 2 Const: Denies: fever(s) or chills Eyes: Denies: change in vision ENMT: Denies: throat pain, odynophagia, nasal discharge or nasal congestion Card: Denies: chest pain, palpitations, syncope or pre-syncope Resp: Denies: dyspnea, productive cough or non-productive cough GI: Reports: abdominal pain, early satiety and hematochezia; Denies: hematemesis, diarrhea, constipation or melena : Denies: flank pain, difficulty voiding, dysuria, urinary frequency or hematuria Musc: Denies: neck pain, extremity pain or extremity swelling Skin/Breast: Denies: rash or pruritus Neuro: Denies: headache(s), numbness in extremities or weakness in extremities Donell/Lymph: Reports: easy bruising PFSH ED 2 PFSH: Medical History Anemia Diastolic heart failure Hypertension Shortness of breath Paroxysmal A-fib ANNIE (acute kidney injury) Hyperkalemia Wheezing New onset of congestive heart failure Acute respiratory failure with hypoxia Colon cancer Diabetes mellitus Hyponatremia Fracture, humerus closed Obesity, Class II, BMI 35-39.9 Closed fracture of shaft of left humerus Lower extremity edema Surgical History H/O hemicolectomy Family History Daughter No problems noted. Mother Cancer Diabetes Father Cancer Diabetes Stroke Other Hypertension Social History Smoking and tobacco/nicotine status: never used tobacco/nicotine Alcohol intake: never Substance/Drug Use: never Physical Exam 2 Narrative: EXAM NARRATIVE: Elderly female who appears to be in no acute distress she answers questions appropriately. Const: COMMON NORMALS: no acute distress and patient oriented x3 GENERAL APPEARANCE: cooperative NUTRITIONAL APPEARANCE: overweight HENMT: COMMON NORMALS: normocephalic, Normal nasal mucous membranes and turbinates present, moist oral mucous membranes and oropharynx normal HEAD & SCALP: normocephalic NOSE: Normal nasal mucous membranes and turbinates present Eye: COMMON NORMALS: Equal, round and reactive pupils present, EOMs intact bilaterally and conjunctivae normal CONJUNCTIVA: Yes conjunctivae normal P UPIL: Yes Equal, round and reactive pupils present Neck/C-Spine: COMMON NORMALS: full ROM, no JVD and No carotid bruits Chest: COMMONS NORMALS: normal inspection of the chest Resp: COMMON NORMALS: normal respiratory effort, No retractions, No use of accessory muscles and clear to auscultation bilaterally AUSCULTATION: clear to auscultation bilaterally Cardio: COMMON NORMALS: no JVD, regular rate, regular rhythm, No murmurs present (Cardio) and Peripheral pulses 2+ throughout RATE: regular rate R HYTHM: regular rhythm PERIPHERAL PULSES: Peripheral pulses 2+ throughout GI: INSPECTION: Yes central obesity OTHER: Abdominal examination reveals obese abdomen with normal bowel sounds. She has mild tenderness in the lower abdomen predominantly in the central and left lower quadrants. No rebound or guarding noted. No masses noted. : COMMON NORMALS: Yes no CVA tenderness BLADDER/KIDNEY EXAM: Yes no CVA tenderness Back/Pelvis: COMMON NORMALS: no CVA tenderness, thoracic and lumbar spine normal to inspection, no thoracic nor lumbar tenderness and thoraco-lumbar ROM normal Extremity: COMMON NORMALS: normal to inspection, full ROM, capillary refill normal, no calf tenderness and no pedal edema Neuro: COMMON NORMALS: patient oriented x3, moves all extremities, no focal motor deficits and no sensory deficits noted CRANIAL NERVES: Yes CN normal except as noted Psych: COMMON NORMALS: mental status grossly normal Skin: COMMON NORMALS: no rashes or lesions noted and turgor normal GENERAL SKIN EXAM: no rashes or lesions noted and turgor normal Course 2 Reevaluation(s): Reevaluation #1: Initial CT scan report was very concerning for possible recurrence of tumor with evidence of liver metastasis. This was discussed with patient and family in detail. In addition urinalysis was eventually obtained which showed significant findings of infection combined with her leukocytosis which initially was nonspecific but seems reasonable to start her on IV antibiotics and plan for an observation stay particularly in light of troponin elevations which obtain due to her initial EKG which was not normal. She does have underlying atrial fibrillation but given the nonspecific presentation of ACS in the elderly was deemed significant enough to obtain troponin which were elevated and continue to elevate. Findings and recommendations were also shared with the family in detail. Time: 12:07 Consultations: Consultation #1: Discussed with Dr. Carrion who will provide oncology follow-up Time: 10:37 Vital Signs: Vital signs: Vital Signs Temperature 98.6 F 12/27/23 08:10 Pulse Rate 76 12/27/23 10:48 Respiratory Rate 17 12/27/23 08:10 Blood Pressure 113/54 12/27/23 10:23 Pulse Oximetry 95 12/27/23 10:48 Oxygen Delivery Me thod Nasal Cannula 12/27/23 10:48 Oxygen Flow Rate 3 12/27/23 10:23 MDM - Abdominal Pain Medical Decision Making This patient presented to our emergency department as noted in history of present illness. Patient had progressive abdominal pain and discomfort over the past several weeks. This has come to the family's attention recently and they have prompted her to come to the emergency department. Your recently in the last several days she has felt generally and globally weak. She has not had notable fevers but has had generalized weakness and decreased solid food intake because she is afraid that she gets early satiety and is concerned that she might vomit. She has not actually vomited with these symptoms. She did have 1 episode of blood noted after bowel movement earlier this week and stop her antiplatelet agent. She has a history of chronic atrial fibrillation. Also had a history of a colon resection for a tumor approximately a year ago at [place] but no subsequent follow-up according to family. Differential included potential etiologies of abdominal pain such as mild gastroenteritis versus bowel obstruction versus recurrent cancer, other intra- abdominal process. Initial EKG showed atrial fibrillation because of age and history of vague presentations with her atrial fibrillation was felt that her troponin was were the to rule out ACS etc. Despite her lack of overt chest pain etc. Also urinalysis was obtained because of concerns that this may be a contributing factor to her abdominal discomfort. Subsequent workup revealed significant findings on her CT scan that showed metastatic disease as well as other concerning findings. Subsequently she had initial troponin elevation which continued to rise without any concomitant chest pain or acute dynamic EKG changes but certainly the etiology is unclear at this time whether she is a troponin leak or due to her chronic atrial fibrillation or she does have occult ACS. Because of this her leukocytosis and generalized weakness and urinary findings is felt that she be best served by placing observation for continued care and monitoring and further consultation. This case was discussed with oncology prior to the disposition decision. Lab Data I reviewed the patient's lab results. 12/27/23 08:10 12/27/23 08:10 Labs/Radiology: Radiology Impressions Abdomen/Pelvis CT 12/27/23 08:34 IMPRESSION: 1. Diffuse hepatic metastatic disease. 2. Recurrent neoplasm at the small bowel and colon anastomosis. Large recurrent mass measuring 11.1 x 8.9 x 4.3 cm which is contiguous with significant omental carcinomatosis. There are numerous metastatic deposits within the abdomen and also in the pelvis. Suspected metastatic deposit along the midline abdominal wall at the incision site. 3. Small amount of complex free fluid in the pelvis. No free air. 4. Renal atrophy with scarring and cortical thinning. Laboratory Results WBC 18.99 10^3/uL (3.29-11.43) H 12/27/23 08:10 RBC 4.65 10^6/uL (3.85-5.65) 12/27/23 08:10 Hgb 12.70 g/dL (11.27-16.99) 12/27/23 08:10 Hct 41.6 % (36-47) 12/27/23 08:10 MCV 89.5 fl (85-98) 12/27/23 08:10 MCH 27.3 pg (27-33) 12/27/23 08:10 MCHC 30.5 g/dL (30-55) 12/27/23 08:10 RDW 15.9 % (12.1-15.1) H 12/27/23 08:10 Plt Count 518 10^3/cmm (157-399) H 12/27/23 08:10 MPV 9.2 fL (7.4-10.4) 12/27/23 08:10 Neut % (Auto) 78.4 % 12/27/23 08:10 Lymph % (Auto) 8.0 % 12/27/23 08:10 Whiteside % (Auto) 12.6 % 12/27/23 08:10 Eos % (Auto) 0.1 % 12/27/23 08:10 Baso % (Auto) 0.2 % 12/27/23 08:10 Neut # (Auto) 14.90 10^3/uL (1.8-7.7) H 12/27/23 08:10 Lymph # (Auto) 1.5 10^3/uL (0.8-4.8) 12/27/23 08:10 Whiteside # (Auto) 2.4 10^3/uL (0.2-0.9) H 12/27/23 08:10 Eos # (Auto) 0.0 10^3/uL (0.0-0.8) 12/27/23 08:10 Baso # (Auto) 0.0 10^3/uL (0.0-0.1) 12/27/23 08:10 Nucleated RBC % (auto) 0 % 12/27/23 08:10 Nucleated RBCs # 0.0 /100WBC 12/27/23 08:10 Sodium 134 mmol/L (136-145) L 12/27/23 08:10 Potassium 4.4 mmol/L (3.5-5.1) 12/27/23 08:10 Chloride 96 mmol/L (98-107) L 12/27/23 08:10 Carbon Dioxide 27 mmol/L (22-29) 12/27/23 08:10 Anion Gap 15.4 (5-19) 12/27/23 08:10 BUN 22 mg/dL (8-23) 12/27/23 08:10 Creatinine 1.4 mg/dL (0.5-0.9) H 12/27/23 08:10 GFR Calculation Not Reportable 12/27/23 08:10 Glucose 292 mg/dL (65-115) H 12/27/23 08:10 Calculated Osmolality 292 mOsm/kg (285-295) 12/27/23 08:10 Calcium 9.1 mg/dL (8.5-10.5) 12/27/23 08:10 Total Bilirubin 0.6 mg/dL (0.15-1.2) 12/27/23 08:10 AST 59 U/L (0-32) H 12/27/23 08:10 ALT 30 U/L (0-33) 12/27/23 08:10 Alkaline Phosphatase 237 U/L (35-105) H 12/27/23 08:10 Troponin T Baseline 66 ng/L (0-10) H 12/27/23 08:10 Troponin T 120 Minute 58.93 ng/L (0-10) H 12/27/23 09:57 Delta Troponin T -7.07 ABS# (0-10) L 12/27/23 09:57 Total Protein 7.4 g/dL (6.6-8.7) 12/27/23 08:10 Albumin 3.3 g/dL (3.5-5.2) L 12/27/23 08:10 Globulin 4.1 g/dL (1.3-4.6) 12/27/23 08:10 Carcinoembryonic Ag 33.7 ng/mL (0.0-4.7) H 12/27/23 09:57 TSH 5.73 uIU/mL (0.27-4.20) H 12/27/23 08:10 Urine Color Yellow (Yellow) 12/27/23 10:47 Urine Appearance Cloudy (CLEAR) A 12/27/23 10:47 Urine pH 5.5 (5-7) 12/27/23 10:47 Ur Specific [place] 1.065 (1.005-1.030) H 12/27/23 10:47 Urine Protein Trace (Negative) A 12/27/23 10:47 Urine Glucose (UA) 3+ (Normal) H 12/27/23 10:47 Urine Ketones Negative (Negative) 12/27/23 10:47 Urine Blood 1+ (Negative) A 12/27/23 10:47 Urine Nitrate Negative (Negative) 12/27/23 10:47 Urine Bilirubin Negative (Negative) 12/27/23 10:47 Urine Urobilinogen 1.0 mg/dL (Negative) 12/27/23 10:47 Ur Leukocyte Esterase 2+ (Negative) A 12/27/23 10:47 Urine RBC 5-10 /hpf (0-2) H 12/27/23 10:47 Urine WBC >100 /hpf (0-5) H 12/27/23 10:47 Ur Squamous Epith Cells 0-4 /hpf (0-5) H 12/27/23 10:47 Amorphous Sediment Not Reportable 12/27/23 10:47 Urine Bacteria None /hpf (NONE) 12/27/23 10:47 Hyaline Casts 0-4 /lpf H 12/27/23 10:47 Urine Mucus None /hpf 12/27/23 10:47 Urine Yeast 2+ /hpf H 12/27/23 10:47 All radiology interpretation(s) finalized by discharge EKG Data EKG 1: I personally reviewed and interpreted this EKG as follows: Interpretation: Contemporaneous review resting EKG reveals ventricular rate of 84 bpm. P wave is indeterminate as to this rhythm is likely consistent with atrial fibrillation. She QRS duration is normal. Corrected QT interval is less than 500 ms. She has T wave abnormalities noted across the precordium as well as in leads which were present previously and unchanged. Discharge Plan Discharge Patient Disposition: Placed in Observation Clinical Impression: Metastatic colon cancer to liver, Atrial fibrillation, chronic, Elevated troponin Urinary tract infection Qualifiers: Hematuria presence: with hematuria Coding Level of Care Code ED Uphol[employer] Trimmer for Chg Ana
[2023-12-27 08:46] LABS: Basophils % 0.2 %; Eosinophils % 0.1 %; Hematocrit 41.6 % (36-47); Lymphocytes # 1.5 10^3/uL (0.8-4.8); Mean Corpuscular HGB Conc 30.5 g/dL (30-55); Mean Corpuscular Hemoglobin 27.3 pg (27-33); Mean Corpuscular Volume 89.5 fl (85-98); Mean Platelet Volume 9.2 fL (7.4-10.4); Monocytes # 2.4 10^3/uL (0.2-0.9); Monocytes % 12.6 %; Neutrophils % 78.4 %; Nucleated Red Blood Cells % 0 %; Platelet Count 518 10^3/cmm (157-399); Red Blood Count 4.65 10^6/uL (3.85-5.65); Red Cell Distribution Width 15.9 % (12.1-15.1); White Blood Count 18.99 10^3/uL (3.29-11.43)
[2023-12-27] MEDS: acetaminophen 325 mg Tablet 650 MG PO (08:57)
[2023-12-27] MEDS: lactated ringers 500 ML 999 ML IV (08:58)
--- NOTE | 2023-12-27 09:07 | PC.NURSE ---
pt bladder scan showed approx 3mL of urine, insufficient urine output with straight catheter for urine sample.
[2023-12-27 09:09] LABS: Alanine Aminotransferase 30 U/L (0-33); Albumin Level 3.3 g/dL (3.5-5.2); Alkaline Phosphatase 237 U/L (35-105); Anion Gap 15.4 (5-19); Aspartate Amino Transferase 59 U/L (0-32); Blood Urea Nitrogen 22 mg/dL (8-23); Calcium 9.1 mg/dL (8.5-10.5); Carbon Dioxide 27 mmol/L (22-29); Chloride 96 mmol/L (98-107); Globulin 4.1 g/dL (1.3-4.6); Glucose 292 mg/dL (65-115); Osmolality Calculated 292 mOsm/kg (285-295); Potassium 4.4 mmol/L (3.5-5.1); Sodium 134 mmol/L (136-145); Thyroid Stimulating Hormone 5.73 uIU/mL (0.27-4.20); Total Bilirubin 0.6 mg/dL (0.15-1.2); Total Protein 7.4 g/dL (6.6-8.7)
[2023-12-27 09:18] LABS: Creatinine Clr Calc Pharmacy 29.6978
[2023-12-27 09:39] LABS: Troponin(5th) Baseline 66 ng/L (0-10)
[2023-12-27] MEDS: iohexol 350 mg/mL 500 mL Btl (per mL) IV (09:41)
--- NOTE | 2023-12-27 10:08 | PC.PHAR ---
Sister states pt has taken Levothyroxine 75mcg and Protonix 40mg only, this morning. No insulin or any other meds taken yet.
[2023-12-27 10:21] LABS: Troponin 5 2HR 58.93 ng/L (0-10)
[2023-12-27 10:24] LABS: Troponin 5 2HR Delta -7.07 ABS# (0-10)
[2023-12-27 10:59] LABS: Bilirubin Urine Negative (Negative); Blood Urine 1+ (Negative); Glucose Urine UA 3+ (Normal); Ketones Urine Negative (Negative); Leukocyte Esterase Urine 2+ (Negative); Nitrate Urine Negative (Negative); Protein Urine Trace (Negative); Urine Appearance Cloudy (CLEAR); Urine Color Yellow (Yellow); pH Urine 5.5 (5-7)
[2023-12-27] MEDS: HYDROcodone-acetaminophen 5-325 mg Tablet 1 TAB PO (11:01)
[2023-12-27 11:02] LABS: Add Urine Microscopic? YES
[2023-12-27 11:05] LABS: Carcinoembryonic Antigen 33.7 ng/mL (0.0-4.7)
--- NOTE | 2023-12-27 11:17 | ECG_ITS ---
[facility] Test Date: 2023-12-27 Pat Name: Shelley Balderrama Department: Room: Gender: Female [employer]: : 1935 Requested By: Jerry Gonzalez Order Number: [id number] Katharine MD: MONTEZ MENEZES Measurements Intervals [place] Rate: 74 P: 0 AR: 0 QRS: 72 QRSD: 137 T: -49 QT: 447 QTc: 496 Interpretive Statements ATRIAL FIBRILLATION RIGHT BUNDLE BRANCH BLOCK [120+ ms QRS DURATION, UPRIGHT V1, 40+ ms S IN I/aVL/V4/V5/V6] SEPTAL MYOCARDIAL INFARCTION , PROBABLY OLD [40+ ms Q WAVE IN V1/V2] MODERATE T-WAVE ABNORMALITY, CONSIDER LATERAL ISCHEMIA [-0.1+ mV T-WAVE IN I/aVL/V5/V6] MODERATE T-WAVE ABNORMALITY, CONSIDER INFERIOR ISCHEMIA [-0.1+ mV T-WAVE IN II/aVF] Compared to ECG 12/27/2023 09:05:31 no sig change Electronically Signed On 12-28-2023 00:11:21 CDT by MONTEZ MENEZES [id number]
[2023-12-27 11:36] LABS: Specific Gravity, Urine 1.065 (1.005-1.030)
[2023-12-27 11:38] LABS: UA Manual Slide Review YES; UA Slide Review UA Slide Review Perf
[2023-12-27 11:39] LABS: Add Urine Culture? Yes; Hyaline Casts Urine 0-4 /lpf; Squamous Epithelial Cell Urine 0-4 /hpf (0-5); WBC Urine >100 /hpf (0-5)
--- NOTE | 2023-12-27 12:21 | P.HP_ITS ---
Providers/Chief Complaint 2 Primary Care Provider: Marleni Donaldson APN Chief Complaint: abd pain History of Present Illness Shelley Balderrama is a 88 year old female with history of A-fib, chronic anticoagulation, type II diabetic, colon cancer status post hemicolectomy presented with chief complaint of generalized weakness and fatigue, patient stating that she was using a walker now not been able to use much because she is extremely fatigued and lethargic, she had regular bowel movement this morning, she has not noticed any fever but endorsing chills, no recent chest pain shortness of breath nausea vomiting. Patient has been taking Tylenol at home. In the ER she has been diagnosed with UTI, ANNIE, CT abdomen pelvis consistent with recurrent neoplasm with mets to abdominal wall, omental carcinomatosis Patient and family both want hospice care at home Patient received ceftriaxone in the ER Review of Systems 2 Const: Denies: fever(s) Eyes: Denies: change in vision ENMT: Denies: throat pain Card: Denies: chest pain GI: Reports: abdominal pain Medications/Allergies Home Medications Medication Instructions Recorded Confirmed Last Taken Type insulin glargine 100 unit/mL 54 unit SUBCUT BID 01/11/20 12/27/23 12/26/23 History subcutaneous solution (Lantus U-100 Insulin) albuterol sulfate 90 mcg/actuation 2 puff inhalation QID PRN 06/06/23 12/27/23 Unknown History aerosol inhaler Shortness Of Breath cetirizine 10 mg tablet 10 mg PO DAILY 06/06/23 12/27/23 12/26/23 History levothyroxine 75 mcg tablet 75 mcg PO QAM 06/06/23 12/27/23 12/27/23 History pantoprazole 40 mg tablet,delayed 40 mg PO QAM 06/06/23 12/27/23 12/27/23 History release diltiazem HCl 120 mg 120 mg PO DAILY 07/09/23 12/27/23 12/26/23 History capsule,extended release 24 hr potassium chloride 10 mEq 10 meq PO DAILY 07/09/23 12/27/23 12/26/23 History tablet,extended release sodium chloride 1,000 mg soluble 1,000 mg PO BID #60 tabs 07/12/23 12/27/23 12/26/23 Rx tablet apixaban 5 mg tablet (Eliquis) 5 mg PO BID@0900,2100 #90 tabs 11/06/23 12/27/23 12/26/23 Rx amiodarone 200 mg tablet 200 mg PO DAILY 12/27/23 12/27/23 12/26/23 History empagliflozin 25 mg tablet 25 mg PO QAM 12/27/23 12/27/23 12/26/23 History (Jardiance) ferrous sulfate 325 mg (65 mg 325 mg PO QAM 12/27/23 12/27/23 12/26/23 History iron) tablet (FeroSul) furosemide 20 mg tablet (Lasix) 40 mg PO QAM 12/27/23 12/27/23 12/26/23 History Allergies Allergy/AdvReac Type Severity Reaction Status Date / Time amlodipine Allergy Unknown Unknown Verified 09/11/23 13:10 Penicillins Allergy Unknown ALGY-Rash Verified 09/11/23 13:10 ibuprofen AdvReac Unknown Unknown Verified 09/11/23 13:10 metformin AdvReac Unknown Unknown Verified 09/11/23 13:10 PFSH Acute 2 PFSH: Medical History Anemia Diastolic heart failure Hypertension Shortness of breath Paroxysmal A-fib ANNIE (acute kidney injury) Hyperkalemia Wheezing New onset of congestive heart failure Acute respiratory failure with hypoxia Colon cancer Diabetes mellitus Hyponatremia Fracture, humerus closed Obesity, Class II, BMI 35-39.9 Closed fracture of shaft of left humerus Lower extremity edema Surgical History H/O hemicolectomy Family History Daughter No problems noted. Mother Cancer Diabetes Father Cancer Diabetes Stroke Other Hypertension Social History Smoking and tobacco/nicotine status: never used tobacco/nicotine Alcohol intake: never Substance/Drug Use: never Vitals/I&O/Wt Last Vital Signs Temp 98.6 F 12/27/23 08:10 Pulse 76 12/27/23 10:48 Resp 17 12/27/23 08:10 BP 113/54 12/27/23 10:23 Pulse Ox 95 12/27/23 10:48 O2 Del Method Nasal Cannula 12/27/23 10:48 O2 Flow Rate 3 12/27/23 10:23 12/26/23 12/27/23 12/27/23 22:59 06:59 14:59 Intake Total 500 / 500 Balance 500 / 500 Weight last 48 hrs Weight 90.718 kg Physical Exam 2 Narrative: Patient is awake and alert Multiple skin ulcers Abdomen distended Tender to deep palpation Patient does not look fluid overloaded Currently on 2 L nasal cannula GCS 15 pleasant cooperative S1, S2 Data 12/27/23 08:10 12/27/23 08:10 A&P Assessment and plan (1) Diastolic heart failure: (2) Atrial fibrillation: (3) Diabetes mellitus: (4) Hyponatremia: (5) UTI (urinary tract infection): (6) Metastatic colon cancer to liver: (7) Need for comfort care: Plan UTI Colon cancer with mets, omental carcinomatosis Start patient on ceftriaxone Patient will put on opioids along bowel regimen Patient is stating that she want to pursue with hospice/comfort care at home Will put her on opioids She was only using Tylenol at home For A-fib she wants to continue aspirin only along her AV sotero blocking agents she stopped taking Eliquis For chronic hyponatremia continue salt tablets Attestations 2 Medical Necessity Statement*: Anticipating dc in 48 hrs Diagnoses Diastolic heart failure I50.30 Atrial fibrillation I48.91 Diabetes mellitus E11.9 Hyponatremia E87.1 UTI (urinary tract infection) N39.0 Metastatic colon cancer to liver C18.9; C78.7 Need for comfort care
[2023-12-27] MEDS: cefTRIAXone 2,000 mg SDV 2000 MG IVP (12:52)
[2023-12-27] MEDS: sennosides-docusate Tablet 2 TAB PO (17:13)
[2023-12-27] MEDS: cefTRIAXone 1,000 MG in sodium chloride 0.9% (plus) 50 ML 100 MG IV (17:13)
[2023-12-27] MEDS: morphine IR 15 mg Tablet PO (17:13)
--- NOTE | 2023-12-27 18:18 | PC.NURSE ---
Pt orders for bladder scan; however d/t hospice conversation and family grieving process, scan delayed. Pt noted to sit on bedside commode earlier in shift with adequate output.
[2023-12-27] MEDS: aspirin 81 mg Chew Tablet PO (20:20)
[2023-12-27 20:59] LABS: Glucose Point of Care 320 mg/dL (70-110)
[2023-12-28] VITALS (9 sets, daily range): BP systolic 97–108; BP diastolic 53–66; PULSE 76–84; RESP 16–20; TEMP 36.6–37.3; O2SAT 91–96
[2023-12-28] MEDS: acetaminophen 500 mg Tablet PO (03:40)
--- NOTE | 2023-12-28 04:28 | PC.NURSE ---
This nurse went in to pts room to assess pain after Tylenol and offer po morphine. Pt stated she does not want the morphine at this time. This nurse educated the pt to use call light when pain requires morphine. Pt verbalized understanding.
[2023-12-28] MEDS: levothyroxine 75 mcg Tablet PO (05:20)
[2023-12-28] MEDS: pantoprazole DR 40 mg Tablet PO (05:20)
[2023-12-28 06:37] LABS: Glucose Point of Care 245 mg/dL (70-110)
[2023-12-28] MEDS: morphine IR 15 mg Tablet PO ×2 (08:10→20:25)
[2023-12-28] MEDS: dilTIAZem ER (24HR) 120 mg Capsule PO (08:10)
[2023-12-28] MEDS: aspirin 81 mg Chew Tablet PO (08:10)
[2023-12-28] MEDS: insulin lispro 100 unit/1 mL SUBCUT ×3 (08:10→17:04)
[2023-12-28] MEDS: amiodarone 200 mg Tablet PO (08:10)
[2023-12-28] MEDS: insulin glargine 100 units/1 mL 40 UNIT SUBCUT (08:16)
--- NOTE | 2023-12-28 08:52 | P.PN_ITS ---
Subjective 2 Subjective: Patient is stating that her pain was well-controlled overnight She was asking for pain medications this morning She is stating that she probably has a nurse to use a bedside commode as well I have notified her nurse Vitals/I&O/Wt Last Vital Signs Temp 98.8 F 12/28/23 07:36 Pulse 77 12/28/23 07:36 Resp 16 12/28/23 08:10 BP 104/55 12/28/23 07:36 Pulse Ox 96 12/28/23 07:36 O2 Del Method Nasal Cannula 12/28/23 07:36 O2 Flow Rate 3 12/27/23 20:21 12/27/23 12/28/23 12/28/23 22:59 06:59 14:59 Intake Total 410 / 910 120 / 1030 Output Total 300 / 300 150 / 450 Balance 110 / 610 -30 / 580 Weight last 48 hrs Weight 93.894 kg Weight 90.718 kg Weight 90.718 kg Physical Exam 2 Narrative: Awake and alert Sitting in her bed in slight discomfort secondary to abdominal pain Distended abdomen Pleasant and cooperative Currently on 3 L nasal cannula GCS 15 nonfocal neuroexam S1, S2 Data 12/27/23 08:10 12/27/23 08:10 A&P Assessment and plan (1) Need for comfort care: (2) Generalized weakness: (3) Hyponatremia: (4) UTI (urinary tract infection): (5) Metastatic colon cancer to liver: Plan 88-year-old female with rectal cancer, came in for abdominal pain, she has been diagnosed with metastatic lesion omental carcinomatosis, decided not to pursue chemotherapy, wants to speak with Dr. Carrion on Saturday, I have started her on comfort care in the hospital, she is asking for home hospice on Saturday which will be arranged by child protective services social worker Rectal cancer with mets Patient not interested in pursuing chemo or radiotherapy Patient has changed her CODE STATUS DNR/DNI and opted for hospice care at home In the hospital we have initiated comfort care with opioids She is getting morphine extended release and Dilaudid for breakthrough pain She is also getting opioids I will change her ceftriaxone to Macrobid and discontinue IV antibiotics, she has been afebrile Disposition: Home hospice on Saturday Patient and family wants to speak with Dr. Carrion as well on Saturday Attestations 2 Medical Necessity Statement*: Discharge on Saturday Diagnoses Need for comfort care Generalized weakness R53.1 Hyponatremia E87.1 UTI (urinary tract infection) N39.0 Metastatic colon cancer to liver C18.9; C78.7
[2023-12-28] MEDS: nitrofurantoin SR (BID) 100 mg Capsule PO ×2 (10:02→17:05)
[2023-12-28 10:48] LABS: Glucose Point of Care 284 mg/dL (70-110)
[2023-12-28] MEDS: ondansetron 2 mg/ML SDV 2 mL 4 MG IVP (15:00)
[2023-12-28 16:55] LABS: Glucose Point of Care 151 mg/dL (70-110)
[2023-12-28] MEDS: sennosides-docusate Tablet 2 TAB PO (17:05)
[2023-12-28] MEDS: morphine ER (12 HR) 15 mg Tablet PO (17:05)
[2023-12-28 20:20] LABS: Glucose Point of Care 153 mg/dL (70-110)
[2023-12-29] VITALS: BP 119/63; PULSE 87; RESP 19; TEMP 37.1; O2SAT 90
[2023-12-29 04:00] VITALS: BP 118/65; PULSE 88; RESP 18; TEMP 37.1; O2SAT 91
[2023-12-29] MEDS: pantoprazole DR 40 mg Tablet PO (05:23)
[2023-12-29] MEDS: levothyroxine 75 mcg Tablet PO (05:23)
[2023-12-29 06:21] LABS: Glucose Point of Care 204 mg/dL (70-110)
[2023-12-29] MEDS: nitrofurantoin SR (BID) 100 mg Capsule PO (07:48)
[2023-12-29] MEDS: amiodarone 200 mg Tablet PO (07:49)
[2023-12-29] MEDS: sodium chloride 1 gm Tablet PO (07:49)
[2023-12-29] MEDS: sennosides-docusate Tablet 2 TAB PO (07:49)
[2023-12-29] MEDS: dilTIAZem ER (24HR) 120 mg Capsule PO (07:49)
[2023-12-29] MEDS: aspirin 81 mg Chew Tablet PO (07:49)
[2023-12-29] MEDS: morphine ER (12 HR) 15 mg Tablet PO (07:49)
[2023-12-29] MEDS: insulin lispro 100 unit/1 mL SUBCUT (07:50)
[2023-12-29 08:00] VITALS: BP 103/55; PULSE 86; RESP 18; TEMP 36.8; O2SAT 90
[2023-12-29] MEDS: insulin glargine 100 units/1 mL 40 UNIT SUBCUT (09:09)
--- NOTE | 2023-12-29 11:29 | P.PN_ITS ---
Subjective 2 Subjective: The patient has been more lethargic throughout the day since her pain medications were changed to long-acting from short acting. No other significant changes at this time. The family is waiting to hear from hospice tomorrow. Vitals/I&O/Wt Last Vital Signs Temp 98.3 F 12/29/23 08:00 Pulse 86 12/29/23 08:00 Resp 18 12/29/23 08:00 BP 103/55 12/29/23 08:00 Pulse Ox 90 12/29/23 08:00 O2 Del Method Nasal Cannula 12/29/23 08:00 O2 Flow Rate 3 12/29/23 08:00 12/28/23 12/29/23 12/29/23 22:59 06:59 14:59 Intake Total 290 / 770 120 / 890 Output Total 200 / 300 200 / 500 Balance 90 / 470 -80 / 390 Weight last 48 hrs Weight 205 lb 4.8 oz Weight 207 lb Weight 200 lb Physical Exam 2 Narrative: General: Lethargic, occasionally saying that she hurts but unable to express where. Mouth: No erythema or tonsilar enlargement. No masses noted. Neck: No thyromegaly. No lymphadenopathy. Heart: Regular rate and rhythm. No murmurs. Lungs: Clear to auscultation bilaterally. No wheezes, crackles or ronchi. Abdomen: Soft, mild diffuse tenderness noted. Extremities: No pitting edema. Data 12/27/23 08:10 12/27/23 08:10 Micro: Microbiology 12/27/23 10:47 Urine Culture - Preliminary Urine,Clean Catch Yeast species A&P Assessment and plan (1) Metastatic colon cancer to liver: (2) Urinary tract infection: The patient has a UTI with E. coli. It is indeterminate to Macrobid. I spoke with the patient's family and we discussed the options for either giving IV antibiotics for treatment of the UTI, switching to oral antibiotics that would be sensitive or not treating the UTI at this time since she is on comfort care only. We discussed the overall goals in terms of hospice and end-of-life care including the possibility that treatment of the UTI could prolong the dying process. After discussion, the family decided to discontinue antibiotics at this point. Certainly if they change their mind, I am okay with restarting antibiotics at that time. Qualifiers: Hematuria presence: with hematuria (3) Need for comfort care: Hospice has been consulted and they will plan to see the patient tomorrow for further evaluation and to discuss options with the family. The plan is to go to the patient's daughter's house for hospice care at this point. For now we will continue with comfort measures. We discussed the pain medications and that they may be a part of why she is feeling more sedated. We discussed the options of trying to control her pain more intensely versus having her be more alert but possibly having periods of time with more pain. The family requested to keep her medications on the long-acting in order to help control her pain better. All questions were answered. The family is in agreement with the current plan of care. The patient was unable to answer questions meaningfully at this time. Attestations 2 Medical Necessity Statement*: The patient continues to need inpatient care for management of her pain and transitioning her to hospice care. Her care will cross 2 midnights. Coding Level of Care Code Acute Code for [facility] Fwd Diagnoses Metastatic colon cancer to liver C18.9; C78.7 Urinary tract infection N39.0 Hematuria presence: with hematuria Need for comfort care
--- NOTE | 2023-12-29 11:32 | PC.NURSE ---
Patient's family at bedside, pt lethargic and has refused all meals for day. Family requested nurses hold the Noon dose of Insulin due to pt not taking food.
[2023-12-29 11:39] LABS: Glucose Point of Care 165 mg/dL (70-110)
[2023-12-29 12:00] VITALS: BP 100/52; PULSE 70; RESP 17; TEMP 36.6; O2SAT 93
[2023-12-29 16:00] VITALS: BP 108/58; PULSE 75; RESP 16; TEMP 37.6; O2SAT 93
[2023-12-29 16:30] LABS: Glucose Point of Care 137 mg/dL (70-110)
[2023-12-29 20:00] VITALS: BP 114/68; PULSE 74; RESP 20; TEMP 36.8; O2SAT 87
[2023-12-30 07:24] VITALS: BP 110/69; PULSE 72; RESP 18; TEMP 36.5; O2SAT 90
--- NOTE | 2023-12-30 10:18 | PC.CHAP ---
Pastoral Care Encounter/Spiritual Assessment Type of Contact [] Declined remote sensing scientist visit [] Patient/Family/Request visit [] Outpatient visit [] Follow-up visit [] Physician referral [] Code/Alert [] Routine visit [] Staff referral [x] Actively dying [] Patient sleeping [x] Family support [] [] Out of room [] Palliative care [] [] Receiving care in room [] Pre-surgical visit [] Trauma [] Long length of stay [] ICU visit [] Other: Relational/Emotional Strength [x] Patient feels connected with others/family/visitors/staff [] Distress [] Loneliness/isolation [] Abandonment Spirituality of Patient [x] Person of Lupe [] Attends Rastafarian of their [place] [x] Believes in Prayer [] Reads Bible or Rastafari materials [] There are Spiritual issues to be addressed Electronic Page Makeup System Operator Interventions [x] Prayer [x] Active listening [x] Non-anxious presence [x] Spiritual/emotional support [] Crisis/trauma care [] Spiritual counseling [] Bereavement support [] Provided bereavement packet [] Provided Bible/devotional materials [] Provided toy/stuffed animal, coloring book to patient or family member [] Provided Communion [] Anointing/[place] [] Salvation [x] Completed spiritual assessment [] Other: Impact on Illness or Injury [] Angry [] Fearful [] Anxious [] Often cries [] Exhaustion [] Unable to work [] Unable to attend baptism [] Unable to walk/stand [] Unable to read [] Unable to drive [] Unable to eat/drink [] Unable to sleep [] Unable to be with family [] Patient intubated [] Other: Summary Time spent with patient 10 min
[2023-12-30 11:29] VITALS: BP 100/49; PULSE 70; RESP 17; TEMP 36.7; O2SAT 86
--- NOTE | 2023-12-30 13:32 | P.PN_ITS ---
Subjective 2 Subjective: Spoke with the family, sister and daughter at bedside. They do not want further testing and IV medications for management of medical condition. They further reported that Ms. Balderrama did not wish for any heroic measures. Agreed on hospice care plan for now, but not comfortable to take her home today. Hence spoke with the high risk case manager about possibility of inpatient hospice. Family also requesting to change pain medication from IV Dilaudid. Medications: Reviewed: Yes Vitals/I&O/Wt Last Vital Signs Temp 98.1 F 12/30/23 11:29 Pulse 70 12/30/23 11:29 Resp 17 12/30/23 11:29 BP 100/49 12/30/23 11:29 Pulse Ox 86 L 12/30/23 11:29 O2 Del Method Nasal Cannula 12/30/23 11:29 O2 Flow Rate 2.5 12/30/23 11:29 12/29/23 12/30/23 12/30/23 22:59 06:59 14:59 Output Total 0 / 0 0 / 0 Balance 0 / 240 0 / 0 Weight last 48 hrs Weight 93.123 kg Weight 93.123 kg Physical Exam 2 Narrative: General: Lethargic, opening eyes only to verbal commands but not comprehensive, occasionally saying that she hurts but unable to express where. Does not look in acute distress Mouth: No erythema or tonsilar enlargement. No masses noted. Neck: No thyromegaly. No lymphadenopathy. Heart: Regular rate and rhythm. No murmurs. Lungs: Clear to auscultation bilaterally. No wheezes, crackles or ronchi. Abdomen: Soft, mild diffuse tenderness noted. Extremities: No pitting edema. Data 12/27/23 08:10 12/27/23 08:10 Micro: Microbiology 12/27/23 10:47 Urine Culture - Preliminary Urine,Clean Catch Yeast species A&P Assessment and plan (1) Metastatic colon cancer to liver: (2) Urinary tract infection: The patient has a UTI with E. coli. Had extensive discussion with Dr. Magana yesterday regarding end-of-life care and family decided to discontinue any active medical management. Family concerned about overall declining health overnight. Spoke to the sister and daughter at bedside again this morning and explained about the current condition. Still do not want any active intervention at this point. They want to continue with the comfort care measures. After discussion, the family decided to discontinue antibiotics at this point. Certainly if they change their mind, I am okay with restarting antibiotics at that time. Qualifiers: Hematuria presence: with hematuria (3) Need for comfort care: The family is in agreement with the current plan of care. The patient was unable to answer questions meaningfully at this time. Hospice consulted. Family concerned about taking her home today hence want to stay 1 more day. Contacted case management for eligibility for inpatient hospice. Will continue with p.o. medications until accepted by hospice care. Attestations 2 Medical Necessity Statement*: Patient is on comfort care, awaiting hospice care consult. Time Spent in Patient Care: 25 minutes Coding Level of Care Code Acute Code for [facility] Fwd Diagnoses Metastatic colon cancer to liver C18.9; C78.7 Urinary tract infection N39.0 Hematuria presence: with hematuria Need for comfort care Time Spent (min) 25
[2023-12-30] MEDS: morphine 10 mg/0.5 mL oral liq UD 5 MG PO ×2 (13:56→15:56)
[2023-12-30 15:29] VITALS: BP 118/68; PULSE 78; RESP 16; TEMP 36.5; O2SAT 81
[2023-12-30 19:45] VITALS: BP 121/71; PULSE 75; RESP 15; TEMP 37; O2SAT 90
[2023-12-30] MEDS: blistex lip oint 7 gm Tube 1 APPLIC TOPICAL (20:37)
[2023-12-30 20:39] VITALS: RESP 18
[2023-12-30] MEDS: morphine 4 mg/mL SDV 1 mL IVP ×2 (20:39→22:41)
[2023-12-30 22:41] VITALS: RESP 16
[2023-12-31 01:31] VITALS: RESP 18
[2023-12-31] MEDS: morphine 4 mg/mL SDV 1 mL IVP ×5 (01:31→20:42)
[2023-12-31 08:00] VITALS: PULSE 79; O2SAT 90
[2023-12-31 09:49] VITALS: RESP 24
[2023-12-31 10:39] VITALS: RESP 18
[2023-12-31 13:31] VITALS: RESP 16
--- NOTE | 2023-12-31 18:08 | P.PN_ITS ---
Subjective 2 Subjective: No acute overnight events noted. Family at bedside. Family aware of plan of care with inpatient hospice Medications: Reviewed: Yes Vitals/I&O/Wt Last Vital Signs Temp 98.6 F 12/30/23 19:45 Pulse 79 12/31/23 08:00 Resp 16 12/31/23 13:31 BP 121/71 12/30/23 19:45 Pulse Ox 90 12/31/23 08:00 O2 Del Method Nasal Cannula 12/30/23 19:45 O2 Flow Rate 2.5 12/30/23 20:00 12/31/23 12/31/23 12/31/23 06:59 14:59 22:59 Intake Total 0 / 0 0 / 0 Output Total 0 / 0 Balance 0 / 0 0 / 0 Weight last 48 hrs Weight 92.986 kg Weight 93.123 kg Physical Exam 2 Narrative: General: Lethargic, opening eyes only to verbal commands but not comprehensive, occasionally saying that she hurts but unable to express where. Does not look in acute distress Mouth: No erythema or tonsilar enlargement. No masses noted. Neck: No thyromegaly. No lymphadenopathy. Heart: Regular rate and rhythm. No murmurs. Lungs: Clear to auscultation bilaterally. No wheezes, crackles or ronchi. Abdomen: Soft, mild diffuse tenderness noted. Extremities: No pitting edema. Data 12/27/23 08:10 12/27/23 08:10 Micro: Microbiology 12/27/23 10:47 Urine Culture - Final Urine,Clean Catch Marbella glabrata A&P Assessment and plan (1) Metastatic colon cancer to liver: (2) Urinary tract infection: Qualifiers: Hematuria presence: with hematuria (3) Need for comfort care: Plan Patient on comfort care measures/inpatient hospice. Attestations 2 Medical Necessity Statement*: Patient is on comfort care measures with inpatient hospice Time Spent in Patient Care: 15 minutes Coding Level of Care Code Acute Code for [facility] Fwd Diagnoses Metastatic colon cancer to liver C18.9; C78.7 Urinary tract infection N39.0 Hematuria presence: with hematuria Need for comfort care Time Spent (min) 15
[2023-12-31 20:00] VITALS: BP 129/78; PULSE 85; RESP 19; TEMP 36.6; O2SAT 94
[2024-01-01] MEDS: morphine 4 mg/mL SDV 1 mL IVP ×2 (01:34→04:56)
[2024-01-01 04:56] VITALS: RESP 20
[2024-01-01 07:40] VITALS: BP 102/65; PULSE 89; RESP 20; TEMP 37.1; O2SAT 93
== END 2023-12-31 13:06 | disposition hospice, inpatient (51) ==
LOC: ER 13:04 → MEDSURG 12-28 09:59
PROVIDERS: Family Medicine; Admitting Provider Internal Medicine; Emergency Provider Emergency Medicine; PCP Nurse Practitioner Family; Visit Provider Internal Medicine
DX: Z51.5 Encounter for palliative care (principal); C18.9 Malignant neoplasm of colon, unspecified; C78.7 Secondary malignant neoplasm of liver and intrahepatic bile duct; N39.0 Urinary tract infection, site not specified; E87.1 Hypo-osmolality and hyponatremia; E11.9 Type 2 diabetes mellitus without complications; I48.91 Unspecified atrial fibrillation; I50.30 Unspecified diastolic (congestive) heart failure; Z79.4 Long term (current) use of insulin; E66.9 Obesity, unspecified; Z68.36 Body mass index [BMI] 36.0-36.9, adult
CPT/HCPCS: 36415; 36416; 51798; 74177; 80053; 81001; 82378; 82962; 84443; 84484; 85025; 87086; 87106; 93005; 96372; 96374; 96375; 99285; G0378; J0696; J1815; J2270; J2405; J7120

== ENCOUNTER 2023-12-31 13:07 | Inpatient (IN) | payer OTHER, MEDICARE, SELFPAY ==
--- OUTSIDE RECORDS SUMMARY | 2024-01-01 10:16 | XMS_ITS ---
Author Name Unknown Organization [facility] Address [address] [place] [address] Care Team Providers Care Grinding And Polishing Laborer Name Role Phone Priscila Donaldson Primary Care Provider DONALDSON, PRISCILA Unavailable Unavailable REASON FOR VISIT CCM Encounters Encounter Location Date Provider Diagnosis [facility] [address] [place] [address] 12/25/2023 [facility] Donaldson Plan Of Treatment No Information Progress Notes * JEANETTE PURI EDOB: 6 (88 yo F)Acc No.[id number]:12/25/2023 Patient:?PURIJEANETTE ÁLVAREZ :1935???Age:88 Y???Sex:Female Address:[address] [place] [address] [place] [address] * * Date:?
--- OUTSIDE RECORDS SUMMARY | 2024-01-01 10:16 | XMS_ITS ---
Author Name Unknown Organization [facility] Address [address] [place] [address] Care Team Providers Care Chrome Polisher Name Role Phone [facility] Primary Care Provider [phone] [place] Unavailable Unavailable REASON FOR VISIT Care Plan Medications Medication SIG (Take, Route, Frequency, Duration) Notes Start Date End Date Status Temazepam 30 mg TAKE ONE CAPSULE BY MOUTH At Bedtime NEEDED Orally Once a day for 90 days 01/03/2023 Not-Taking FeroSul 325 (65 Fe) MG TAKE ONE TABLET B Y MOUTH EVERY DAY for 30 Active Lantus 100 unit/mL inject 55 units DIRECTED Subcutaneously Twice a day for 30 days Active Potassium Chloride ER 10 MEQ Oral for 90 Days Active Cetirizine HCl 10 MG 1 tablet Orally Onc e a day Active Eliquis 5 MG 1 tablet Orally Once a day for 30 days Active Albuterol Sulfate HFA 108 (90 Base) MCG/ACT 2 puffs Inhalation four times a day prn for 30 days 03/15/2023 Active Lasix 40 MG 1 tablet Orally Once a day Active Amiodarone HCl 200 MG 1 tablet Orally On ce a day 08/12/2023 Active guaiFENesin 600 MG as directed Orally Active Sodium Chloride 1 GM TAKE ONE TABLET BY MOUTH TWICE DAILY for 30 Active Amiodarone HCl 200 MG TAKE ONE TABLET BY MOUTH TWICE DAILY FOR 7 days, THEN TAKE 1 TABLET DAILY Oral for 19 Days Active Jardiance 25 mg TAKE ONE TABLET BY M OUTH DAILY for 30 days Active dilTIAZem HCl ER Coated Beads 120 mg TAKE ONE CAPSULE BY MOUTH ONCE DAILY for 30 days Active FreeStyle Russ 2 Sensor - USE DIRECTED TO check blood sugar CHANGE EVERY 14 DAYS for 28 days Active Levothyroxine Sodium 75 mcg TAKE ONE TABLET BY MOUTH EVERY MORNING on a EMPTY stomach for 30 Active Furosemide 40 mg TAKE ONE TABLET BY M OUTH DAILY for 30 Active Pantoprazole Sodium 40 mg TAKE ONE TABLET BY MOUTH EVERY DAY for 90 Active Encounters Encounter Location Date Provider Diagnosis [facility] [address] [address] 12/04/2023 Marleni Donaldson Plan Of Treatment No Information Progress Notes * JEANETTE PURI EDOB: [birth year] (88 yo F)Acc No.[id number]:12/04/2023 Care Plan Visit Patient:?JEANETTE PURI Provider:?Marleni Donaldson HIGH SCHOOL TUTOR?Resource:Berta Diamond :1935???Age:88 Y???Sex:Female D ate:12/04/2023 Address:[address] [place], [place] [id number] Subjective: * Chief Complaints: * ???Care Plan * Medical History:? * Surgical History:? * Hospitalization/Major Diagno stic Procedure:? * Medications:?TakingPantopraz ole Sodium 40 mg Tablet Delayed Release TAKE ONE TABLET BY MOUTH EVERY DAY Furosemide 40 mg Tablet TAKE ONE TABLET BY MOUTH DAILY Levothyroxine Sodium 75 mcg Tablet TAKE ONE TABLET BY MOUTH EVERY MORNING on a EMPTY stomach FreeStyle Russ 2 Sensor - Miscellaneous USE DIRECTED TO check blood sugar CHANGE EVERY 14 DAYS dilTIAZem HCl ER Coated Beads 120 mg Capsule Extended Release 24 Hour TAKE ONE CAPSULE BY MOUTH ONCE DAILY Amiodarone HCl 200 MG Tablet TAKE ONE TABLET BY MOUTH TWICE DAILY FOR 7 days, THEN TAKE 1 TABLET DAILY Oral Sodium Chloride 1 GM Tablet TAKE ONE TABLET BY MOUTH TWICE DAILY Jardiance 25 mg Tablet TAKE ONE TABLET BY MOUTH DAILY Eliquis 5 MG Tablet 1 tablet Orally Once a day Amiodarone HCl 200 MG Tablet 1 tablet Orally Once a day Lasix 40 MG Tablet 1 tablet Orally Once a day guaiFENesin 600 MG Tablet Extended Release as directed Orally Albuterol Sulfate HFA 108 (90 Base) MCG/ACT Aerosol Solution 2 puffs Inhalation four times a day prn Lantus 100 unit/mL Solution inject 55 units DIRECTED Subcutaneously Twice a day Cetirizine HCl 10 MG Tablet 1 tablet Orally Once a day Potassium Chloride ER 10 MEQ Tablet Extended Release Oral FeroSul 325 (65 Fe) MG Tablet TAKE ONE TABLET BY MOUTH EVERY DAY Taking Pantoprazole Sodium 40 mg Tablet Delayed Release TAKE ONE TABLET BY MOUTH EVERY DAY Taking Furosemide 40 mg Tablet TAKE ONE TABLET BY MOUTH DAILY Taking Levothyroxine Sodium 75 mcg Tablet TAKE ONE TABLET BY MOUTH EVERY MORNING on a EMPTY stomach Taking FreeStyle Russ 2 Sensor - Miscellaneous USE DIRECTED TO check blood sugar CHANGE EVERY 14 DAYS Taking dilTIAZem HCl ER Coated Beads 120 mg Capsule Extended Release 24 Hour TAKE ONE CAPSULE BY MOUTH ONCE DAILY Taking Amiodarone HCl 200 MG Tablet TAKE ONE TABLET BY MOUTH TWICE DAILY FOR 7 days, THEN TAKE 1 TABLET DAILY Oral Taking Sodium Chloride 1 GM Tablet TAKE ONE TABLET BY MOUTH TWICE DAILY Taking Jardiance 25 mg Tablet TAKE ONE TABLET BY MOUTH DAILY Taking Eliquis 5 MG Tablet 1 tablet Orally Once a day Taking Amiodarone HCl 200 MG Tablet 1 tablet Orally Once a day Taking Lasix 40 MG Tablet 1 tablet Orally Once a day Taking guaiFENesin 600 MG Tablet Extended Release as directed Orally Taking Albuterol Sulfate HFA 108 (90 Base) MCG/ACT Aerosol Solution 2 puffs Inhalation four times a day prn Taking Lantus 100 unit/mL Solution inject 55 units DIRECTED Subcutaneously Twice a day Taking Cetirizine HCl 10 MG Tablet 1 tablet Orally Once a day Taking Potassium Chloride ER 10 MEQ Tablet Extended Release Oral Taking FeroSul 325 (65 Fe) MG Tablet TAKE ONE TABLET BY MOUTH EVERY DAY Not-TakingTemazepam 30 mg Capsule TAKE ONE CAPSULE BY MOUTH At Bedtime NEEDED Orally Once a day Medication List reviewed and reconciled with the patientNot-Taking Temazepam 30 mg Capsule TAKE ONE CAPSULE BY MOUTH At Bedtime NEEDED Orally Once a day Medication List reviewed and reconciled with the patient Objective: * Vitals:? Assessment: Plan: * Treatment: * Procedure Codes:? Care Plan: * Problems:? * Billing Information: * Visit Code:? * Procedure Codes:? Care Plan Details* Congestive Heart FailureGoal ObjectiveInterventionG1.CHF - Medication Management: Patient will adhere to and report any medication changes as prescribed by PCP and/or any Specialists.Goal Outcome:In ProgressStart Date:12/04/2023O1.CHF - Patient will report a weight gain greater than 3lbI1.CHF - Patient successfully reported signs and symptoms of fluid retentionChronic Kidney DiseaseGoalObjectiveInterventionG1.CKD - Patient will be able to identify which medications affect kidneysGoal Outcome:In ProgressStart Date:12/04/2023O1.CKD - Patient is educated on which medications affect kidneysI1.Free TextNotes(1) Keep follow up appts have labs checked regularly regarding kidney function.Name: Berta Murray ? ? Time: 12/04/2023 02:01 PMHypertensionGoalObjectiveInterventionG1.Hypertension - Maintain a blood pressure within normal limits.Goal Outcome:In ProgressStart Date:11/05/2023O1.Hypertension/Hyperlipidemia- Assess current dietary choicesI1.Patient education on dietary choicesO2.Hypertension/Hyperlipidemia- Assess current exercise and physical activityO3.Hypertension - Appropriately take medication as prescribedO4.Hypertension - Maintain a low sodium dietDiabetes mellitusGoalObjectiveInterventionG1.DM- Increase physical activityGoal Outcome:In ProgressStart Date:11/05/2023O1.DM- Track adherence over time, and follow trends for weight, blood glucose, and A1CI1.Patient education on benefits of exerciseI2.Patient education on dietary choicesO2.DM- Develop positive social support to aid in diabetes managementG2.Diabetes- Medication Management: Pt will adhere to and report any medication changes as prescribed by PCP and/or any Specialists.Goal Outcome:In ProgressStart Date:11/05/2023G3.Diabetes: Maintain a regimen of regular self foot exams.Goal Outcome:In ProgressStart Date:11/05/2023G4.Diabetes: Understand and report concerning symptomsGoal Outcome:In ProgressStart Date:11/05/2023G5.Diabetes: Regular Retinopathy ExamsGoal Outcome:In ProgressStart Date:11/05/2023G6.Diabetes: Improve Diet and Physical ActivityGoal Outcome:In ProgressStart Date:11/05/2023 * Patient Focused Care Plan Family/Caregiver involved in patient's care?her son Ilir, her daughter Cici, and her sister Evelia (retired RN) Special[facility]?snow plow operator and eye dr Symptoms/conditions of great est concern to the patient?Her greatest concern is her overall health. Psych-Social status?She is a lert and oriented. Environmental status?Ilir , Jeanette's son, lives with her. Functional status?Jeanette uses a walker inside her home but uses a wheelchair when out. She can not walk the distance from the car to the clinic. Follow up plan?-Attend all s cheduled appts -Take all meds as prescribed-CM will follow up monthly or sooner if necessary Patient provided with everette shelby/electronic copy of care plan:?Sent to portal electronically * Sign off status: Completed true * Provider:?Marleni Donaldson APRN Date:?12/04/19 24 Generated for Serina locke/Jignesh/Nannette on:?01/01/2024 10:16 AM CDT
--- OUTSIDE RECORDS SUMMARY | 2024-01-01 10:16 | XMS_ITS ---
Author Name Unknown Organization [facility] Address [address] [place] [address] Care Team Providers Care Vegetable Grader Name Role Phone [facility] Primary Care Provider [facility] Unavailable Unavailable REASON FOR VISIT [facility] Enrollment Medications Medication SIG (Take, Route, Frequency, Duration) Notes Start Date End Date Status Cetirizine HCl 10 MG 1 tablet Orally Onc e a day Active Potassium Chloride ER 10 MEQ Oral for 90 Days Active FeroSul 325 (65 Fe) MG TAKE ONE TABLET B Y MOUTH EVERY DAY for 30 Active Lantus 100 unit/mL inject 55 units DIRECTED Subcutaneously Twice a day for 30 days Active Temazepam 30 mg TAKE ONE CAPSULE BY MOUTH At Bedtime NEEDED Orally Once a day for 90 days 01/03/2023 Not-Taking Lasix 40 MG 1 tablet Orally Once a day Active guaiFENesin 600 MG as directed Orally Active Albuterol Sulfate HFA 108 (90 Base) MCG/ACT 2 puffs Inhalation four times a day prn for 30 days 03/15/2023 Active Eliquis 5 MG 1 tablet Orally Once a day for 30 days Active Amiodarone HCl 200 MG 1 tablet Orally On ce a day 08/12/2023 Active FreeStyle Russ 2 Sensor - USE DIRECTED TO check blood sugar CHANGE EVERY 14 DAYS for 28 days Active dilTIAZem HCl ER Coated Beads 120 mg TAKE ONE CAPSULE BY MOUTH ONCE DAILY for 30 days Active Amiodarone HCl 200 MG TAKE ONE TABLET BY MOUTH TWICE DAILY FOR 7 days, THEN TAKE 1 TABLET DAILY Oral for 19 Days Active Sodium Chloride 1 GM TAKE ONE TABLET BY MOUTH TWICE DAILY for 30 Active Jardiance 25 mg TAKE ONE TABLET BY M OUTH DAILY for 30 days Active Pantoprazole Sodium 40 mg TAKE ONE TABLET BY MOUTH EVERY DAY for 90 Active Furosemide 40 mg TAKE ONE TABLET BY M OUTH DAILY for 30 Active Levothyroxine Sodium 75 mcg TAKE ONE TABLET BY MOUTH EVERY MORNING on a EMPTY stomach for 30 Active Social History Tobacco Use: Social History Observation Description Date Details (start date - stop date) Never Smoker NA - NA Tobacco Control (Standard) Question Answer Notes Tobacco use: Nonsmoker Encounters Encounter Location Date Provider Diagnosis [facility] [address] [place] [address] 12/04/2023 Marleni Donaldson Assessments Encounter Date Diagnosis (ICD Code) Assessment Notes Treatment Notes Treatment Clinical Notes 12/04/2023 Other Heart Failure: Care Instructions material was published Plan Of Treatment Treatment Notes Assessment Notes Other Heart Failure: Care Instructions material was published Progress Notes * JEANETTE PURI EDOB: [birth year] (88 yo F)Acc No.[id number]:12/04/2023 Patient:?JEANETTE PURI :1935???Age:88 Y???Sex:Female Address:[address] [place] [id number] Subjective: * Chief Complaints: * ???[facility] Enrollment * Medical History:? * Surgical History:?eye surg x 3 * Hospitalization/Major Diagno stic Procedure:?hospitalized 07/2023 * Social History:?Tobacco Use:?Tobacco Control (Standard)?Tobacco use:?Nonsmoker ???Depression screen completed 08/16/2023 score 0. * Medications:?TakingPantopraz ole Sodium 40 mg Tablet [...] At Bedtime NEEDED Orally Once a day Not-Taking Temazepam 30 mg Capsule TAKE ONE CAPSULE BY MOUTH At Bedtime NEEDED Orally Once a day Objective: * Vitals:? * Physical Examination:? Assessment: Plan: * Treatment: * Procedure Codes:? * Preventive Medicine:? ??Counseling:?BMI Management?BMI management provided?Yes ?Above Normal BMI Follow-up?Weight monitoring * true * Date:? Generated for Serina locke/Jignesh/Nannette on:?01/01/2024 10:16 AM CDT
--- OUTSIDE RECORDS SUMMARY | 2024-01-01 10:17 | XMS_ITS | Patient Health Record ---
Author Name Unknown Organization [facility] Address [address] [place] [address], [place] [address] Care Team Providers Care Lpn Per Diem Name Role Phone Marleni Donaldson Primary Care Provider MARLENI DONALDSON Unavailable Unavailable Mick Lopez Unavailable [phone] Brooks Mosher Unavailable [phone] Allergies No Known Allergies Results Component Value Reference Range Notes Digoxin [id number] Reviewed date:05/19/2023 09:13:56 AM Interpretation: Performing Lab: Notes/Report: Diagnosis Description: Other retirement (current) drug therapy Digoxin .73 .80-2.00 ng/mL Therapeutic R anges: 0.8-2.0 ng/ml Arrhythmias; 0.5-0.8 ng/ml CHF. Comprehensive Metabolic Pane l [id number] Reviewed date:09/22/2023 05:37:26 PM Interpretation: Performing Lab: Notes/Report: Diagnosis Description: Essential (primary) hypertension Glucose Serum 159 71-110 MG/DL Testing perfor med at [facility], [address] [place] [address] [place] [address]. CLIA ID#: [id number] BUN 21 7-21 MG/DL Creat 1.21 .51-1.17 MG/DL G-sirwby-a-benzoquinone imine (NAPQI) is a metabolite of acetaminophen, NAPQI concentrations of apparoximately 10 mg/L correlation to toxic levels of acetaminophen demonstrates a greater than or equil to 10% change in results. NAPQI concentrations greater than this may lead to falsely depressed results for patient samples. Use of this assay is not recommended for patients undergoing treatment with phenindione, due to the potential for falsely depressed results. GFR 43.3 Calculation per formed from GFR calculator provided by the [employer]. Glomerular Filtration rate(GRF) is the best overall index of kidney function. Normal GFR varies according to age,sex, body size, and declines with age. The National Kid[employer] Foundation recommends using the CKD-EPI Creatinine Equation(2020) to estimate GFR. BUN/Creat Ratio 17.4 12.0-20.0 % Total Protein 6.8 5.8-8.0 G/DL Albumin 3.8 3.2-4.8 G/DL Globulin 3.0 2.3-3.5 G/DL Alb/Glob 1.3 0.8-2.2 Calcium 9.8 8.7-10.4 MG/DL Sodium 139 136-145 MMOL/L Potassium 4.5 3.5-5.1 MMOL/L Chloride 102 98-107 MMOL/L CO2 31.3 20.0-31.0 MMOL/L Anion Gap 10 5-15 Alk Phos 78 46-116 Bili Total .2 .3-1.2 MG/DL Use of this ass ay is not recommended for patients undergoing treatment with eltrombopag due to the potential for falsely elevated results. AST/SGOT 21 15-37 UNIT/L ALT/SGPT 15 12-78 UNIT/L Osmo Serum,Calculated 294 280-300 MOSM/KG CBC w\ Auto Diff [id number] Reviewed date:09/22/2023 05:37:01 PM Interpretation: Performing Lab: Notes/Report: Diagnosis Description: Essential (primary) hypertension WBC 7.5 4.5-11.0 X10'3 RBC 4.91 4.00-5.20 X10'6 Hgb 13.4 12.0-16.0 G/DL Hct 45.5 36.0-46.0 % MCV 92.7 80.0-100.0 FL MCH 27.3 27.0-31.0 PG MCHC 29.5 31.0-37.0 G/DL Platelet 335 150-400 X10'3 RDW-SD 67.9 35.0-49.0 FL RDW-CV 19.8 12.2-15.6 % MPV 9.2 9.2-12.0 FL Neutro Auto% 62.2 40.0-70.0 % Lymph Auto% 25.1 22.0-44.0 % [place] Auto% 8.5 3.0-7.0 % Eos Auto% 2.8 2.0-4.0 % Baso Auto% 0.7 0.0-1.0 % Imm Gran% .7 .0-.4 % Neutro Abs 4.70 .80-7.70 Absolute Neutrophil Count 4700 Lymph Abs 1.89 .10-4.10 [place] Abs .64 .20-1.00 Eos Abs .21 .00-.40 Baso Abs .05 .00-.20 Imm Gran Abs .05 .00-.10 NRBC# .00 .00-.20 X10'3 NRBC% .00 .00-.20 /100 int act WBC's Pro BNP [id number] Reviewed date:09/22/2023 05:36:39 PM Interpretation: Performing Lab: Notes/Report: Diagnosis Description: Heart failure, unspecified PBNP 80.3 .0-125.0 PG/ML Lipid Panel Reflex DLDL 8006 1, [id number] Reviewed date:09/22/2023 05:36:29 PM Interpretation: Performing Lab: Notes/Report: Diagnosis Description: Mixed hyperlipidemia Trig 88 Classification Guidelines:Triglycerides Adults: >20yrs Desirable <150 Borderline High 150-199 High 200-499 Very high >=500 Children: Male 0-4 yr 22-99 5-9 yr 30-101 10-14 yr 32-125 15-19 yr 37-148 Children: Female 0-4 yr 34-112 5-9 yr 32-105 10-14 yr 37-131 15-19 yr 39-132 Chol 135 <=200 MG/DL HDL 44 39-96 MG/DL Reference Ranges:HDL Male: 5-9y 38-75 10-14y 37-74 15-19y 30-63 >=20y 40-59 Female: 5-9y 36-73 10-14y 37-70 15-19y 35-74 >=20y 40-59 CH/HDL 3.1 0.0-4.9 RATIO LDL 74 0-130 MG/DL LDL result is i naccurate , if Trig is >400 mg/dl. See DLDL result. 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 >7.0 % diabetics. EAG 171 Estimated [place] Glucose(EAG). Ferritin 03974 Reviewed date:09/22/2023 05:35:45 PM Interpretation: Performing Lab: Notes/Report: Diagnosis Description: Anemia, unspecified Ferritin 21 8-388 ng/mL Iron Level 36348 Reviewed date:09/22/2023 05:35:33 PM Interpretation: Performing Lab: Notes/Report: Diagnosis Description: Anemia, unspecified Iron 43 50-170 MCG/DL Per Iron assay instruction for Use(IFU), patients treated with metal-binding drugs (e.g.deferoxamine) may have depressed iron values as chelated iron may not properly react in the iron assay. Testing was performed with this assay method. Microalbumin (U) Random 8204 3 Reviewed date:09/22/2023 05:35:14 PM Interpretation: Performing Lab: Notes/Report: Diagnosis Description: Type 2 diabetes mellitus with diabetic chronic kidney disease Ur Microalbumin 9.0 .0-30.0 MG/L Ur Creat 64.2 29.0-226.0 Mal/Crea/Ratio 14.0 .0-30.0 mg Alb/g Cr Thyroxine (T4) 60217 Reviewed date:03/15/2023 09:07:49 AM Interpretation: Performing Lab: Notes/Report: Diagnosis Description: Encounter for screening for other suspected endocrine disorder ThyroxinT4 7.4 4.8-13.9 Thyroid Stimulating Hormone (TSH) 86559 Reviewed date:03/15/2023 04:35:37 PM Interpretation: Performing Lab: Notes/Report: Diagnosis Description: Encounter for screening for other suspected endocrine disorder TSH 5.740 .358-3.740 MlU/ML Lipid Panel Reflex DLDL 8006 1, 63639 Reviewed date:03/15/2023 09:07:38 AM Interpretation: Performing Lab: Notes/Report: Diagnosis Description: Mixed hyperlipidemia Trig 93 Classification Guidelines:Triglycerides Adults: >20yrs Desirable <150 Borderline High 150-199 High 200-499 Very high >=500 Children: Male 0-4 yr 22-99 5-9 yr 30-101 10-14 yr 32-125 15-19 yr 37-148 Children: Female 0-4 yr 34-112 5-9 yr 32-105 10-14 yr 37-131 15-19 yr 39-132 Chol 104 <=200 MG/DL HDL 33 39-96 MG/DL Reference Ranges:HDL Male: 5-9y 38-75 10-14y 37-74 15-19y 30-63 >=20y 40-59 Female: 5-9y 36-73 10-14y 37-70 15-19y 35-74 >=20y 40-59 CH/HDL 3.1 0.0-4.9 RATIO LDL 52 0-130 MG/DL LDL result is i naccurate , if Trig is >400 mg/dl. See DLDL result. Hemoglobin A1c 33394 Reviewed date:03/15/2023 09:06:50 AM Interpretation: Performing Lab: Notes/Report: Diagnosis Description: Type 1 diabetes mellitus with ketoacidosis without coma Hgb A1c 10.4 3.8-6.4 % Interpretation Of Hgb A1c: 4.5-6.2 % nondiabetics. >7.0 % diabetics. EAG 252 Estimated [place] Glucose(EAG). Comprehensive Metabolic Pane l 51582 Reviewed date:03/15/2023 09:11:25 AM Interpretation: Performing Lab: Notes/Report: Diagnosis Description: Essential (primary) hypertension Glucose Serum 232 71-110 MG/DL Testing perfor med at [address] [place] [address]. CLIA ID#: [id number] BUN 9 7-21 MG/DL Creat 1.06 .51-1.17 MG/DL V-sxeeyb-w-benzoquinone imine (NAPQI) is a metabolite of acetaminophen, NAPQI concentrations of apparoximately 10 mg/L correlation to toxic levels of acetaminophen demonstrates a greater than or equil to 10% change in results. NAPQI concentrations greater than this may lead to falsely depressed results for patient samples. Use of this assay is not recommended for patients undergoing treatment with phenindione, due to the potential for falsely depressed results. GFR 51.0 Calculation per formed from GFR calculator provided by the National Kid[employer]. Glomerular Filtration rate(GRF) is the best overall index of kidney function. Normal GFR varies according to age,sex, body size, and declines with age. The National Kidney Foundation recommends using the CKD-EPI Creatinine Equation(2009) to estimate GFR. BUN/Creat Ratio 8.5 12.0-20.0 % Total Protein 6.6 5.8-8.0 G/DL Albumin 3.7 3.2-4.8 G/DL Globulin 2.9 2.3-3.5 G/DL Alb/Glob 1.3 0.8-2.2 Calcium 9.1 8.7-10.4 MG/DL Sodium 135 136-145 MMOL/L Potassium 5.4 3.5-5.1 MMOL/L Chloride 101 98-107 MMOL/L CO2 28.7 20.0-31.0 MMOL/L Anion Gap 11 5-15 Alk Phos 103 46-116 Bili Total .3 .3-1.2 MG/DL Use of this ass ay is not recommended for patients undergoing treatment with eltrombopag due to the potential for falsely elevated results. AST/SGOT 25 15-37 UNIT/L ALT/SGPT 23 12-78 UNIT/L Osmo Serum,Calculated 286 280-300 MOSM/KG CBC w\ Auto Diff 09670 Reviewed date:03/15/2023 09:09:25 AM Interpretation: Performing Lab: Notes/Report: Diagnosis Description: Essential (primary) hypertension WBC 7.5 4.5-11.0 X10'3 RBC 4.76 4.00-5.20 X10'6 Hgb 10.4 12.0-16.0 G/DL Hct 36.9 36.0-46.0 % MCV 77.5 80.0-100.0 FL MCH 21.8 27.0-31.0 PG MCHC 28.2 31.0-37.0 G/DL Platelet 387 150-400 X10'3 RDW-SD 57.4 35.0-49.0 FL RDW-CV 20.7 12.2-15.6 % MPV 9.8 9.2-12.0 FL Neutro Auto% 65.0 42.0-75.0 % Lymph Auto% 21.3 20.0-51.0 % [place] Auto% 10.2 1.7-9.3 % Eos Auto% 2.5 .0-6.0 % Baso Auto% 0.5 0.0-1.0 % Imm Gran% .5 .0-.4 % Neutro Abs 4.85 .80-7.70 Absolute Neutrophil Count 4850 Lymph Abs 1.59 .10-4.10 [place] Abs .76 .20-1.00 Eos Abs .19 .00-.40 Baso Abs .04 .00-.10 Imm Gran Abs .04 .00-.10 NRBC# .00 .00-.20 X10'3 NRBC% .00 .00-.20 /100 int act WBC's Pro BNP 19549 Reviewed date:06/14/2023 09:03:30 AM Interpretation: Performing Lab: Notes/Report: Diagnosis Description: Heart failure, unspecified PBNP 91.2 .0-125.0 PG/ML Thyroid Stimulating Hormone (TSH) 18550 Reviewed date:06/14/2023 09:02:59 AM Interpretation: Performing Lab: Notes/Report: Diagnosis Description: Hypothyroidism, unspecified TSH 1.555 .358-3.740 MlU/ML Hemoglobin A1c 79531 Reviewed date:06/14/2023 09:02:31 AM Interpretation: Performing Lab: Notes/Report: 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 >7.0 % diabetics. EAG 240 Estimated [place] Glucose(EAG). CBC w\ Auto Diff 00445 Reviewed date:06/14/2023 09:02:10 AM Interpretation: Performing Lab: Notes/Report: Diagnosis Description: Essential (primary) hypertension WBC 9.4 4.5-11.0 X10'3 RBC 4.80 4.00-5.20 X10'6 Hgb 9.9 12.0-16.0 G/DL Hct 37.7 36.0-46.0 % MCV 78.5 80.0-100.0 FL MCH 20.6 27.0-31.0 PG MCHC 26.3 31.0-37.0 G/DL Platelet 391 150-400 X10'3 RDW-SD 60.5 35.0-49.0 FL RDW-CV 21.5 12.2-15.6 % MPV 9.6 9.2-12.0 FL Neutro Auto% 74.9 42.0-75.0 % Lymph Auto% 15.5 20.0-51.0 % [place] Auto% 6.5 1.7-9.3 % Eos Auto% 2.5 .0-6.0 % Baso Auto% 0.3 0.0-1.0 % Imm Gran% .3 .0-.4 % Neutro Abs 7.06 .80-7.70 Absolute Neutrophil Count 7060 Lymph Abs 1.46 .10-4.10 [place] Abs .61 .20-1.00 Eos Abs .24 .00-.40 Baso Abs .03 .00-.10 Imm Gran Abs .03 .00-.10 NRBC# .00 .00-.20 X10'3 NRBC% .00 .00-.20 /100 int act WBC's Comprehensive Metabolic Pane l 88789 Reviewed date:06/14/2023 09:01:52 AM Interpretation: Performing Lab: Notes/Report: Diagnosis Description: Essential (primary) hypertension Glucose Serum 87 71-110 MG/DL Testing perfor med at [facility], [address] [place] [address] Dr. Vasquez [place], [place] [address]. CLIA ID#: [id number] BUN 14 7-21 MG/DL Creat 1.04 .51-1.17 MG/DL H-pfkhfj-m-benzoquinone imine (NAPQI) is a metabolite of acetaminophen, NAPQI concentrations of apparoximately 10 mg/L correlation to toxic levels of acetaminophen demonstrates a greater than or equil to 10% change in results. NAPQI concentrations greater than this may lead to falsely depressed results for patient samples. Use of this assay is not recommended for patients undergoing treatment with phenindione, due to the potential for falsely depressed results. GFR 52.0 Calculation per formed from GFR calculator provided by the National Kid[employer]. Glomerular Filtration rate(GRF) is the best overall index of kidney function. Normal GFR varies according to age,sex, body size, and declines with age. The National Kidney Foundation recommends using the CKD-EPI Creatinine Equation(2020) to estimate GFR. BUN/Creat Ratio 13.5 12.0-20.0 % Total Protein 6.5 5.8-8.0 G/DL Albumin 3.7 3.2-4.8 G/DL Globulin 2.8 2.3-3.5 G/DL Alb/Glob 1.3 0.8-2.2 Calcium 9.0 8.7-10.4 MG/DL Sodium 138 136-145 MMOL/L Potassium 4.8 3.5-5.1 MMOL/L Chloride 101 98-107 MMOL/L CO2 35.8 20.0-31.0 MMOL/L Anion Gap 6 5-15 Alk Phos 111 46-116 Bili Total .4 .3-1.2 MG/DL Use of this ass ay is not recommended for patients undergoing treatment with eltrombopag due to the potential for falsely elevated results. AST/SGOT 29 15-37 UNIT/L ALT/SGPT 26 12-78 UNIT/L Osmo Serum,Calculated 286 280-300 MOSM/KG COVID-19 RAPID-[id number] Reviewed date:05/24/2023 12:38:37 PM Interpretation: Performing Lab: Notes/Report: COVID19 neg Influenza A/B Reviewed date:05/24/2023 12:38:23 PM Interpretation: Performing Lab: Notes/Report: A neg B neg CBC w\ Auto Diff [id number] Reviewed date:05/06/2023 09:16:52 PM Interpretation: Performing Lab: Notes/Report: Diagnosis Description: Essential (primary) hypertension WBC 8.1 4.5-11.0 X10'3 RBC 4.85 4.00-5.20 X10'6 Hgb 10.3 12.0-16.0 G/DL Hct 38.3 36.0-46.0 % MCV 79.0 80.0-100.0 FL MCH 21.2 27.0-31.0 PG MCHC 26.9 31.0-37.0 G/DL Platelet 397 150-400 X10'3 RDW-SD 60.4 35.0-49.0 FL RDW-CV 21.5 12.2-15.6 % MPV 9.8 9.2-12.0 FL Neutro Auto% 73.9 42.0-75.0 % Lymph Auto% 15.0 20.0-51.0 % [place] Auto% 8.9 1.7-9.3 % Eos Auto% 1.1 .0-6.0 % Baso Auto% 0.5 0.0-1.0 % Imm Gran% .6 .0-.4 % Neutro Abs 5.97 .80-7.70 Absolute Neutrophil Count 5970 Lymph Abs 1.21 .10-4.10 [place] Abs .72 .20-1.00 Eos Abs .09 .00-.40 Baso Abs .04 .00-.10 Imm Gran Abs .05 .00-.10 NRBC# .00 .00-.20 X10'3 NRBC% .00 .00-.20 /100 int act WBC's Comprehensive Metabolic Pane l [id number] Reviewed date:05/14/2023 03:54:48 PM Interpretation: Performing Lab: Notes/Report: Diagnosis Description: Essential (primary) hypertension Glucose Serum 430 71-110 MG/DL Will phone result in am. Testing performed at [facility], [address] [place] [address] [place] [address]. CLIA ID#: [id number] BUN 13 7-21 MG/DL Creat 1.11 .51-1.17 MG/DL N-eyyobe-f-benzoquinone imine (NAPQI) is a metabolite of acetaminophen, NAPQI concentrations of apparoximately 10 mg/L correlation to toxic levels of acetaminophen demonstrates a greater than or equil to 10% change in results. NAPQI concentrations greater than this may lead to falsely depressed results for patient samples. Use of this assay is not recommended for patients undergoing treatment with phenindione, due to the potential for falsely depressed results. GFR 47.9 Calculation per formed from GFR calculator provided by the National Kid[employer]. Glomerular Filtration rate(GRF) is the best overall index of kidney function. Normal GFR varies according to age,sex, body size, and declines with age. The National Kidney Foundation recommends using the CKD-EPI Creatinine Equation(2009) to estimate GFR. BUN/Creat Ratio 11.7 12.0-20.0 % Total Protein 7.1 5.8-8.0 G/DL Albumin 3.8 3.2-4.8 G/DL Globulin 3.3 2.3-3.5 G/DL Alb/Glob 1.2 0.8-2.2 Calcium 9.3 8.7-10.4 MG/DL Sodium 134 136-145 MMOL/L Potassium 4.8 3.5-5.1 MMOL/L Chloride 97 98-107 MMOL/L CO2 29.1 20.0-31.0 MMOL/L Anion Gap 13 5-15 Alk Phos 121 46-116 Bili Total .4 .3-1.2 MG/DL Use of this ass ay is not recommended for patients undergoing treatment with eltrombopag due to the potential for falsely elevated results. AST/SGOT 52 15-37 UNIT/L ALT/SGPT 28 12-78 UNIT/L Osmo Serum,Calculated 297 280-300 MOSM/KG Reason For Referral No Information Medications Medication SIG (Take, Route, Frequency, Duration) Notes Start Date End Date Status Potassium Chloride ER 10 mEq TAKE ONE TABLET BY MOUTH EVERY DAY for 30 Active Temazepam 30 mg TAKE ONE CAPSULE BY MOUTH At Bedtime NEEDED Orally Once a day for 90 days 01/03/2023 Not-Taking Amiodarone HCl 200 MG TAKE ONE TABLET BY MOUTH TWICE DAILY FOR 7 days, THEN TAKE 1 TABLET DAILY Oral for 19 Days Active FeroSul 325 (65 Fe) MG TAKE ONE TABLET B Y MOUTH EVERY DAY for 30 Active Eliquis 5 MG 1 tablet Orally Once a day for 30 days Active Jardiance 25 mg TAKE ONE TABLET BY M OUTH DAILY for 30 days Active Sodium Chloride 1 GM TAKE ONE TABLET BY MOUTH TWICE DAILY for 30 Active Levothyroxine Sodium 75 mcg TAKE ONE TABLET BY MOUTH EVERY MORNING on a EMPTY stomach for 30 Active Albuterol Sulfate HFA 108 (90 Base) MCG/ACT 2 puffs Inhalation four times a day prn for 30 days 03/15/2023 Active dilTIAZem HCl ER Coated Beads 120 mg TAKE ONE CAPSULE BY MOUTH ONCE DAILY for 30 days Active FreeStyle Russ 2 Sensor - USE DIRECTED TO check blood sugar CHANGE EVERY 14 DAYS for 28 days Active Cetirizine HCl 10 MG 1 tablet Orally Onc e a day Active Lasix 40 MG 1 tablet Orally Once a day Active Amiodarone HCl 200 MG 1 tablet Orally On ce a day 08/12/2023 Active Pantoprazole Sodium 40 mg TAKE ONE TABLET BY MOUTH EVERY DAY for 90 Active guaiFENesin 600 MG as directed Orally Active Furosemide 40 mg TAKE ONE TABLET BY M OUTH DAILY for 30 Active Lantus 100 unit/mL inject 55 units DIRECTED Subcutaneously Twice a day for 30 days Active Immunizations Vaccine Route Administration Date Status Martha mccartney Flucelvax Quadrivalent IM Intramuscular 03/15/2023 Administered [facility] [address]-11 pt tolerated well/instructed to wait 20 min Prevnar 20 IM Intramuscular 09/20/2023 Administered Provid ed by [facility]/pt tolerated well/instructed to wait 20 min Social History Tobacco Use: Social History Observation Description Date Details (start date - stop date) Never Smoker NA - NA Alcohol Screen (Audit-C) Question Answer Notes Did you have a drink containing alcohol in the p ast year? No Points 0 Interpretation Negative PHQ-9 Question Answer Notes Little interest or pleasure in doing things Not at all Feeling down, depressed, or hopeless Not at all Trouble falling or staying asleep, or sleeping t oo much Not at all Feeling tired or having little energy Not at all Poor appetite or overeating Not at all Feeling bad about yourself, or that you are a failure, or have let yourself or your family down Not at all Trouble concentrating on thi ngs, such as reading the newspaper or watching television Not at all Moving or speaking so slowly that other people could have noticed. Or the opposite ? being so fidgety or restless that you have been moving around a lot more than usual Not at all Thoughts that you would be b dariusz off , or of hurting yourself in some way Not at all Total Score 0 Tobacco Control (Standard) Question Answer Notes Tobacco use: Nonsmoker Problems Problem Type SNOMED Code ICD Code Onset Dates Problem Status W/U Status Risk Notes Problem 87385259 Type 1 diabetes mellitus with ketoacidosis without coma (E10.10) Active confirmed Problem 20045753 Type 2 diabetes mellitus with diabetic chronic kidney disease (E11.22) Active confirmed Problem 911352100 Type 2 diabetes mellitus with hyperglycemia (E11.65) Active confirmed Problem 013178341 Morbid (severe) obesity due to excess calories (E66.01) Active confirmed Problem 988836379 Mixed hyperlipidemia (E78.2) Active confirmed Problem 22921049 Essential (prima ry) hypertension (I10) Active confirmed Problem 154775109 Local infection of the skin and subcutaneous tissue, unspecified (L08.9) Active confirmed Problem 410111729 Generalized nathan a (R60.1) Active confirmed Problem Hyperglycemia (75058091) Hyperglycemia, unspecified (R73.9) Active confirmed Problem 474135682 half-way (curre nt) use of insulin (Z79.4) Active confirmed Problem 099730772 Gastroesophageal reflux disease without esophagitis (K21.9) Active confirmed Problem Hyponatremia (96200082) Hyponatremia (E87.1) Active confirmed Problem 324036697 Leukocytosis, unspecified (D72.829) Active confirmed Problem 807339497 Diverticulitis (K57.92) Active confirmed Problem Congestive heart failure (32147052) CHF (congestive heart failure) (I50.9) Active confirmed Problem 193307287 Chronic kidney disease, unspecified CKD stage (N18.9) Active confirmed Problem 312439216 Insomnia, unspecified type (G47.00) Active confirmed Problem Renal insufficiency (546739858) Renal insufficiency (N28.9) Active confirmed Problem 040588885 Thyroid disorder screening (Z13.29) Active confirmed Problem Hypothyroid (15186415) Hypothyroid (E03.9) Active confirmed Problem 583800363 Elevated liver enzymes (R74.8) Active confirmed Problem Acute insomnia (721984232) Acute insomnia (G47.00) Active confirmed Problem 461828061 Long-term insuli n use (Z79.4) Active confirmed Problem 062391840 Environmental allergies (Z91.09) Active confirmed Problem 2171387 Decreased mobili ty (R26.89) Active confirmed Problem 88868798 Candidal skin infection (B37.2) Active confirmed Problem 264964959 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) Active confirmed Vital Signs Heart Rate 77 /min 09/20/2023 Temperature 97.9 degrees Fahrenheit 09/20/2023 Respiratory Rate 20 /min 09/20/2023 Blood pressure diastolic 71 mm Hg 09/20/2023 Oximetry 96 % 09/20/2023 Height-cm 160.02 cm 09/20/2023 Weight-kg 91.63 kg 09/20/2023 Height 63 in 09/20/2023 Blood pressure systolic 116 mm Hg 09/20/2023 Weight 202 lbs 09/20/2023 BMI 35.78 kg/m2 09/20/2023 Encounters Encounter Location Date Provider Diagnosis [address] [address] 03/14/2023 [facility] Essential (primary) hypertension I10 ; Renal insufficiency N28.9 ; Hyperglycemia, unspecified R73.9 ; Type 1 diabetes mellitus with ketoacidosis without coma E10.10 ; Type 2 diabetes mellitus with hyperglycemia E11.65 ; Elevated liver enzymes R74.8 ; Mixed hyperlipidemia E78.2 and Thyroid disorder screening Z13.[address] [address] 01/03/2023 [facility] Acute gastritis without hemorrhage, unspecified gastritis type K29.00 ; Diverticulitis K57.92 and Insomnia, unspecified type G47.[address] [address] 03/15/2023 [facility] Type 2 diabetes mellitus with hyperglycemia E11.65 ; Insomnia, unspecified type G47.00 ; Essential (primary) hypertension I10 ; Bronchitis J40 ; half-way (current) use of insulin Z79.4 ; half-way (current) use of oral hypoglycemic drugs Z79.84 ; Flu vaccine need Z23 and Elevated TSH R79.[address] [address] 05/06/2023 [facility] Essential (primary) hypertension I10 [address] [address] 05/17/2023 [facility] Hypothyroid E03.9 ; Type 2 diabetes mellitus with hyperglycemia E11.65 ; Essential (primary) hypertension I10 ; Hyponatremia E87.1 ; Acute insomnia G47.00 ; Renal insufficiency N28.9 ; rodent exterminator (current) use of insulin Z79.4 ; rodent exterminator use of drug Z79.899 and rodent exterminator (current) use of oral hypoglycemic drugs Z79.[address] [address] 05/24/2023 [facility] Bronchitis J40 ; Weakness R53.1 and Cough R05.[address] [place] [address] 06/13/2023 [facility] Type 2 diabetes mellitus with diabetic chronic kidney disease E11.22 ; CHF (congestive heart failure) I50.9 ; Hypothyroid E03.9 ; Essential (primary) hypertension I10 ; half-way (current) use of insulin Z79.4 and Encounter for support and coordination of transition of care Z76.89 [facility] [address] [place] [address] 07/12/2023 [facility] Type 1 diabetes mellitus with ketoacidosis without coma E10.10 ; Renal insufficiency N28.9 and Hyponatremia E87.1 [facility] [address] [place] [address] 07/22/2023 [facility] Essential (primary) hypertension I10 ; Renal insufficiency N28.9 ; Hyperglycemia, unspecified R73.9 ; half-way (current) use of insulin Z79.4 ; Type 2 diabetes mellitus with diabetic chronic kidney disease E11.22 ; Mixed hyperlipidemia E78.2 ; Hypothyroid E03.9 and CHF (congestive heart failure) I50.9 [facility] [address] [address] 08/16/2023 [facility] [facility] Essential (primary) hypertension I10 ; Type 2 diabetes mellitus with diabetic chronic kidney disease E11.22 ; CHF (congestive heart failure) I50.9 ; Decreased mobility R26.89 ; rodent exterminator (current) use of insulin Z79.4 ; rodent exterminator (current) use of oral hypoglycemic drugs Z79.84 ; Depression screen Z13.31 and Hospital discharge follow-up Z09 [facility] [address] [address] 09/20/2023 [facility] Encounter for Medicare annual wellness exam Z00.00 ; Type 2 diabetes mellitus with diabetic chronic kidney disease E11.22 ; Mixed hyperlipidemia E78.2 ; Essential (primary) hypertension I10 ; Hypothyroid E03.9 ; CHF (congestive heart failure) I50.9 ; Encounter for immunization Z23 and Anemia D64.9 [facility] [address] [place] [address] 11/05/2023 [facility] [address] [place] [address] 12/04/2023 [facility] [address] [place] [address] 12/25/2023 [facility] [place] [address] [place] [address] 01/04/2023 [facility] [place] [address] [place] [address] 01/09/2023 [facility] [place] [address] [place] [address] 01/18/2023 [facility] [place] [address] [place] [address] 01/21/2023 [facility] [address] [place] [address] 01/21/2023 Mick Lopez [facility] [place] [address] [place] [address] 01/22/2023 [facility] [place] [address] [place] [address] 01/28/2023 [facility] [place] [address] [place] [address] 03/04/2023 [facility] [place] [address] [place] [address] 03/04/2023 [facility] [place] [address] [place] [address] 06/04/[address] [place] [address] 06/25/[address] [place] [address] 07/03/2023 [facility] Essential (primary) hypertension I10 ; Renal insufficiency N28.9 ; Hyperglycemia, unspecified R73.9 ; rodent exterminator (current) use of insulin Z79.4 ; Type 2 diabetes mellitus with diabetic chronic kidney disease E11.22 ; Mixed hyperlipidemia E78.2 ; Hypothyroid E03.9 and CHF (congestive heart failure) I50.[address] [facility] [address] [place] [address] 07/09/2023 [facility] [address] [place] [address] 07/15/2023 [facility] [address] [place] [address] 07/22/2023 [facility] [address] [place] [address], [place] [address] 08/01/2023 [facility] [address] [place] [address] 08/08/2023 [facility] [address] [place] [address] 08/12/2023 [facility] [address] [place] [address] 11/04/2023 [facility] Essential (primary) hypertension I10 ; Type 2 diabetes mellitus with hyperglycemia E11.65 ; Chronic kidney disease, unspecified CKD stage N18.9 and CHF (congestive heart failure) I50.9 [facility] [address] [place] [address] 12/04/2023 [facility] Assessments Encounter Date Diagnosis (ICD Code) Assessment Notes Treat ment Notes Treatment Clinical Notes 01/03/2023 Diverticulitis (ICD-10 - K57.92) depomedrol/decadron im rocephin levaquin rest colon 01/03/2023 Acute gastritis without hemorrhage, unspecified gastritis type (ICD-10 - K29.00) continue pantoprazole 03/14/2023 Essential (primary) hypertension (ICD-10 - I10) 03/14/2023 Renal insufficiency (ICD-10 - N28.9) 03/15/2023 Type 2 diabetes mellitus with hyperglycemia (ICD-10 - E11.65) monitor bs 05/06/2023 Essential (primary) hypertension (ICD-10 - I10) 05/17/2023 Type 2 diabetes mellitus with hyperglycemia (ICD-10 - E11.65) monitor bs 03/15/2023 Insomnia, unspecified type (ICD-10 - G47.00) continue meds 08/16/2023 Type 2 diabetes mellitus with diabetic chronic kidney disease (ICD-10 - E11.22) continue same monitor bs 08/16/2023 Essential (primary) hypertension (ICD-10 - I10) continue meds 05/17/2023 Hypothyroid (ICD-10 - E03.9) levothyroxine 05/24/2023 Weakness (ICD-10 - R53.1) 05/24/2023 Bronchitis (ICD-10 - J40) covid rapid; negative keflex medrol dose pack 06/13/2023 Type 2 diabetes mellitus with diabetic chronic kidney disease (ICD-10 - E11.22) ha1c monitor bs continue meds; insulin as directed freestyle russ 2 ordered ; faxed 06/13/2023 CHF (congestive heart failure) (ICD-10 - I50.9) dr fabian as planned weight hatch meds as directed bnp 07/03/2023 Essential (primary) hypertension (ICD-10 - I10) cbc cmp 07/03/2023 Renal insufficiency (ICD-10 - N28.9) 07/12/2023 Type 1 diabetes mellitus with ketoacidosis without coma (ICD-10 - E10.10) 07/22/2023 Essential (primary) hypertension (ICD-10 - I10) cbc cmp 09/20/2023 Type 2 diabetes mellitus with diabetic chronic kidney disease (ICD-10 - E11.22) continue meds monitor bs ha1c urine microalbumin 09/20/2023 Encounter for Medicare annual wellness exam (ICD-10 - Z00.00) see eval 11/04/2023 Essential (primary) hypertension (ICD-10 - I10) 07/22/2023 Renal insufficiency (ICD-10 - N28.9) 09/20/2023 Mixed hyperlipidemia (ICD-10 - E78.2) lipids 11/04/2023 Type 2 diabetes mellitus with hyperglycemia (ICD-10 - E11.65) 07/12/2023 Renal insufficiency (ICD-10 - N28.9) 07/03/2023 Hyperglycemia, unspecified (ICD-10 - R73.9) 06/13/2023 Hypothyroid (ICD-10 - E03.9) continue meds tsh 05/24/2023 Cough (ICD-10 - R05.9) flu swab; negative 08/16/2023 CHF (congestive heart failure) (ICD-10 - I50.9) cardiology as planed continue meds 05/17/2023 Essential (primary) hypertension (ICD-10 - I10) continue meds 03/15/2023 Essential (primary) hypertension (ICD-10 - I10) olmesartan 20 mg; 1/2 tab q am 03/14/2023 Hyperglycemia, unspecified (ICD-10 - R73.9) 01/03/2023 Insomnia, unspecified type (ICD-10 - G47.00) temazepam 03/14/2023 Type 1 diabetes mellitus with ketoacidosis without coma (ICD-10 - E10.10) 03/15/2023 Bronchitis (ICD-10 - J40) albuteral hfa 08/16/2023 Decreased mobility (ICD-10 - R26.89) 05/17/2023 Hyponatremia (ICD-10 - E87.1) salt tab 06/13/2023 Essential (primary) hypertension (ICD-10 - I10) continue meds monitor bs cbc cmp 07/03/2023 half-way (current) use of insulin (ICD-10 - Z79.4) 07/12/2023 Hyponatremia (ICD-10 - E87.1) 11/04/2023 Chronic kidney disease, unspecified CKD stage (ICD-10 - N18.9) 09/20/2023 Essential (primary) hypertension (ICD-10 - I10) cbc cmp monitor bp continue meds 07/22/2023 Hyperglycemia, unspecified (ICD-10 - R73.9) 07/22/2023 rodent exterminator (current) use of insulin (ICD-10 - Z79.4) 11/04/2023 CHF (congestive heart failure) (ICD-10 - I50.9) 09/20/2023 Hypothyroid (ICD-10 - E03.9) tsh conitnue levothyroid 07/03/2023 Type 2 diabetes mellitus with diabetic chronic kidney disease (ICD-10 - E11.22) 06/13/2023 rodent exterminator (current) use of insulin (ICD-10 - Z79.4) 08/16/2023 rodent exterminator (current) use of insulin (ICD-10 - Z79.4) 05/17/2023 Acute insomnia (ICD-10 - G47.00) temazepam 03/15/2023 half-way (current) use of insulin (ICD-10 - Z79.4) 03/14/2023 Type 2 diabetes mellitus with hyperglycemia (ICD-10 - E11.65) 03/15/2023 rodent exterminator (current) use of oral hypoglycemic drugs (ICD-10 - Z79.84) 03/14/2023 Elevated liver enzymes (ICD-10 - R74.8) 05/17/2023 Renal insufficiency (ICD-10 - N28.9) 08/16/2023 rodent exterminator (current) use of oral hypoglycemic drugs (ICD-10 - Z79.84) 06/13/2023 Encounter for support and coordination of transition of care (ICD-10 - Z76.89) 07/03/2023 Mixed hyperlipidemia (ICD-10 - E78.2) lipids 07/22/2023 Type 2 diabetes mellitus with diabetic chronic kidney disease (ICD-10 - E11.22) 09/20/2023 CHF (congestive heart failure) (ICD-10 - I50.9) bnp 09/20/2023 Encounter for immunization (ICD-10 - Z23) pneumonia vaccine 07/22/2023 Mixed hyperlipidemia (ICD-10 - E78.2) lipids 07/03/2023 Hypothyroid (ICD-10 - E03.9) tsh 08/16/2023 Depression screen (ICD-10 - Z13.31) 03/15/2023 Flu vaccine need (ICD-10 - Z23) flu shot 05/17/2023 rodent exterminator (current) use of insulin (ICD-10 - Z79.4) 03/14/2023 Mixed hyperlipidemia (ICD-10 - E78.2) 05/17/2023 half-way use of drug (ICD-10 - Z79.899) digoxin 03/15/2023 Elevated TSH (ICD-10 - R79.89) 08/16/2023 Hospital discharge follow-up (ICD-10 - Z09) discussed with patient 07/03/2023 CHF (congestive heart failure) (ICD-10 - I50.9) bnp 07/22/2023 Hypothyroid (ICD-10 - E03.9) tsh 09/20/2023 Anemia (ICD-10 - D64.9) iron and ferritin 07/22/2023 CHF (congestive heart failure) (ICD-10 - I50.9) bnp 05/17/2023 half-way (current) use of oral hypoglycemic drugs (ICD-10 - Z79.84) 03/14/2023 Thyroid disorder screening (ICD-10 - Z13.29) 03/14/2023 Other Venipuncture: Performed by: Matthew HO Attempts: x1 Location: RAC Needle gauge: 21G Patient tolerated well. 08/09/2023 Other Medications reviewed, orders signed and documented with nursing staff. Vitals taken and recorded at [facility]. 01/03/2023 Other Questions asked and answered; discharged to home. 03/15/2023 Other Questions asked and answered; discharged to home. 05/06/2023 Other Venipuncture: Performed by: Matthew HO Attempts: x1 Location: RAC Needle gauge: 22G Patient tolerated well. 05/17/2023 Other Questions asked and answered; discharged to home. Venipuncture: Performed by: Matthew HO Attempts: x1 Location: RAC Needle gauge: 21G Patient tolerated well. 05/24/2023 Other Questions asked and answered; discharged to home. 06/13/2023 Other Questions asked and answered; discharged to home. Venipuncture: Performed by:Matthew HO Attempts: x1 Location: RAC Needle gauge: 21G Patient tolerated well. 07/12/2023 Other Medications reviewed, orders signed and documented with nursing staff. Vitals taken and recorded at [facility]. 07/22/2023 Other Medications reviewed, orders signed and documented with nursing staff. Vitals taken and recorded at [facility]. Pt approved for discharge. 08/16/2023 Other Questions asked and answered; discharged to home. 09/20/2023 Other Questions asked and answered; discharged to home. Venipuncture: Performed by: Matthew HO Attempts: x1 Location: RAC Needle gauge: 21g Patient tolerated well. 12/04/2023 Other Heart Failure: Care Instructions material was published Plan Of Treatment Pending Test Test Name Order Date CBC w\ Auto Diff [id number] 07/03/2023 Comprehensive Metabolic Panel 45022 06/07 Thyroid Stimulating Hormone (TSH) 93716 07/03/2023 Pro BNP [id number] 07/03/2023 Chest PA/Lat-43427 11/16/2022 Insurance Providers Payer Name Payer Address Payer Phone Subscriber Number Group Number Insured Name Patient Relationship to Insured Coverage Start Date Coverage End Date [facility] Medicare Advantage PPO [address] [address] [place] [address] [phone] [id number] JEANETTE PURI Self - patient is the insured Medications Administered Medication Instructions Date of Administration Dosage Notes cefTRIAXone Sodium 11/03/2021 1 g [facility] [phone] pt tolerated well/instructed to wait 20 min DEPO-Medrol 01/03/2023 40 mg [facility] [address] 3-01 pt tolerated well/instructed to wait 20 min dexAMETHasone 01/03/2023 4 mg [facility] 90453-9 423-00 pt tolerated well/instructed to wait 20 min Rocephin 01/03/2023 1 g [facility] [phone] -11 pt tolerated well/instructed to wait 20 min Medical (General) History Medical History History ICD Code measles mumps Chicken Pox High Blood Pressure diabetes mellitus hyponatremia Surgical History Surgery Date(Month/Year) eye surg x3 Hospitalization History Reason Date(Month/Year) hospitalized 07/2023
--- NOTE | 2024-01-01 11:55 | PM.DCS ---
Discharge Providers Date of Admission: 12/31/23 13:07 Date of Discharge: January 01, 2024 Attending Provider at Admission: Zenaida Solorzano MD Attending Provider at Discharge: Zenaida Solorzano MD Primary Care Provider: Marleni Donaldson APN Reason for Visit Reason for Visit: HOSPICE CARE ADMIT Brief History: Shelley Balderrama is a 88 year old female with history of A-fib, chronic anticoagulation, type II diabetic, colon cancer status post hemicolectomy presented with chief complaint of generalized weakness and fatigue, patient stating that she was using a walker now not been able to use much because she is extremely fatigued and lethargic, she had regular bowel movement this morning, she has not noticed any fever but endorsing chills, no recent chest pain shortness of breath nausea vomiting. Patient has been taking Tylenol at home. In the ER she has been diagnosed with UTI, ANNIE, CT abdomen pelvis consistent with recurrent neoplasm with mets to abdominal wall, omental carcinomatosis Patient and family both want hospice care at home Patient received ceftriaxone in the ER Hospital Course Hospital Course 12/26 Assessment and plan (1) Diastolic heart failure: (2) Atrial fibrillation: (3) Diabetes mellitus: (4) Hyponatremia: (5) UTI (urinary tract infection): (6) Metastatic colon cancer to liver: (7) Need for comfort care: Plan UTI Colon cancer with mets, omental carcinomatosis Start patient on ceftriaxone Patient will put on opioids along bowel regimen Patient is stating that she want to pursue with hospice/comfort care at home Will put her on opioids She was only using Tylenol at home For A-fib she wants to continue aspirin only along her AV sotero blocking agents she stopped taking Eliquis For chronic hyponatremia continue salt tablets 12/[age]rg-old female with rectal cancer, came in for abdominal pain, she has been diagnosed with metastatic lesion omental carcinomatosis, decided not to pursue chemotherapy, wants to speak with Dr. Carrion on Saturday, I have started her on comfort care in the hospital, she is asking for home hospice on Saturday which will be arranged by clinical social work aide Rectal cancer with mets Patient not interested in pursuing chemo or radiotherapy Patient has changed her CODE STATUS DNR/DNI and opted for hospice care at home In the hospital we have initiated comfort care with opioids She is getting morphine extended release and Dilaudid for breakthrough pain She is also getting opioids I will change her ceftriaxone to Macrobid and discontinue IV antibiotics, she has been afebrile 12/28-Hospice has been consulted and they will plan to see the patient tomorrow for further evaluation and to discuss options with the family. The plan is to go to the patient's daughter's house for hospice care at this point. For now we will continue with comfort measures. We discussed the pain medications and that they may be a part of why she is feeling more sedated. We discussed the options of trying to control her pain more intensely versus having her be more alert but possibly having periods of time with more pain. The family requested to keep her medications on the long-acting in order to help control her pain better. All questions were answered. The family is in agreement with the current plan of care. The patient was unable to answer questions meaningfully at this time. 12/29-The family is in agreement with the current plan of care. The patient was unable to answer questions meaningfully at this time. Hospice consulted. Family concerned about taking her home today hence want to stay 1 more day. Contacted case management for eligibility for inpatient hospice. Will continue with p.o. medications until accepted by hospice care. 12/30-patient has been accepted to inpatient hospice. 12/31- Will discharge as inpatient to continue with inpatient hospice/comfort care. Patient has been non responsive and comforted with morphine and ativan currently. family at bedside and aware of the current condition. Physical Exam Narrative: She is unresponsive. Chest clear CVS normal Discharge Plan Discharge Patient Disposition: Xfer Other Condition: Stable Prescriptions: No Action Lantus U-100 Insulin 100 unit/mL solution 54 unit SUBCUT BID Eliquis 5 mg tablet 5 mg PO BID@0900,2100 Qty: 90 3RF cetirizine 10 mg Tablet 10 mg PO DAILY levothyroxine 75 mcg tablet 75 mcg PO QAM pantoprazole 40 mg tablet,delayed release (DR/EC) 40 mg PO QAM albuterol sulfate 90 mcg/actuation HFA aerosol inhaler 2 puff INHALATION QID PRN (Reason: Shortness Of Breath) ferrous sulfate [FeroSul] 325 mg (65 mg iron) tablet 325 mg PO QAM amiodarone 200 mg tablet 200 mg PO DAILY Lasix 20 mg tablet 40 mg PO QAM Jardiance 25 mg tablet 25 mg PO QAM diltiazem HCl 120 mg capsule,extended release 24hr 120 mg PO DAILY potassium chloride 10 mEq tablet extended release 10 meq PO DAILY sodium chloride 1,000 mg Tablet,Soluble 1,000 mg PO BID Qty: 60 0RF Discharge Orders: Discharge Order (Routine); Ordered 01/01/24 Ordered By: Zenaida Solorzano Referrals: [facility] [Outside] Discharge Activity: Bedrest Patient Instructions: Opioid Safety Discharge Attestations Time Spent in Discharge Care*: less than 30 min Status at Discharge: Cognitive status at discharge: cognitively intact, Behavioral status at discharge: cooperative, Quality Metrics Clinical Quality Measures [ No reported AMI, CVA or VTE this stay] Coding Level of Care Code Acute Code for Chg Fwd Time Spent (min) 15
--- NOTE | 2024-01-01 12:13 | PM.HP ---
Providers/Chief Complaint Admitting Physician: Zenaida Solorzano MD Primary Care Provider: Marleni Donaldson APN Chief Complaint: HOSPICE CARE ADMIT History of Present Illness Shelley Balderrama is a 88-year-old female with rectal cancer, came in for abdominal pain, she has been diagnosed with metastatic lesion omental carcinomatosis, decided not to pursue chemotherapy. She requested for comfort care/home hospice. She has been gradually getting unresponsive. Multiple family members have been aware of patient's condition. She has been accepted on inpatient hospice. Has been made comfortable on IV morphine and ativan. Review of Systems General: Reports: ROS unobtainable due to mental status Medications/Allergies Home Medications Medication Instructions Recorded Confirmed Last Taken Type insulin glargine 100 unit/mL 54 unit SUBCUT BID 01/11/20 01/01/24 12/26/23 History subcutaneous solution (Lantus U-100 Insulin) albuterol sulfate 90 mcg/actuation 2 puff inhalation QID PRN 06/06/23 01/01/24 Unknown History aerosol inhaler Shortness Of Breath cetirizine 10 mg tablet 10 mg PO DAILY 06/06/23 01/01/24 12/26/23 History levothyroxine 75 mcg tablet 75 mcg PO QAM 06/06/23 01/01/24 12/27/23 History pantoprazole 40 mg tablet,delayed 40 mg PO QAM 06/06/23 01/01/24 12/27/23 History release diltiazem HCl 120 mg 120 mg PO DAILY 07/09/23 01/01/24 12/26/23 History capsule,extended release 24 hr potassium chloride 10 mEq 10 meq PO DAILY 07/09/23 01/01/24 12/26/23 History tablet,extended release sodium chloride 1,000 mg soluble 1,000 mg PO BID #60 tabs 07/12/23 01/01/24 12/26/23 Rx tablet apixaban 5 mg tablet (Eliquis) 5 mg PO BID@0900,2100 #90 tabs 11/06/23 01/01/24 12/26/23 Rx amiodarone 200 mg tablet 200 mg PO DAILY 12/27/23 01/01/24 12/26/23 History empagliflozin 25 mg tablet 25 mg PO QAM 12/27/23 01/01/24 12/26/23 History (Jardiance) ferrous sulfate 325 mg (65 mg 325 mg PO QAM 12/27/23 01/01/24 12/26/23 History iron) tablet (FeroSul) furosemide 20 mg tablet (Lasix) 40 mg PO QAM 12/27/23 01/01/24 12/26/23 History Allergies Allergy/AdvReac Type Severity Reaction Status Date / Time amlodipine Allergy Unknown Unknown Verified 09/11/23 13:10 Penicillins Allergy Unknown ALGY-Rash Verified 09/11/23 13:10 ibuprofen AdvReac Unknown Unknown Verified 09/11/23 13:10 metformin AdvReac Unknown Unknown Verified 09/11/23 13:10 PFSH Acute PFSH: Medical History Anemia Diastolic heart failure Hypertension Shortness of breath Paroxysmal A-fib ANNIE (acute kidney injury) Hyperkalemia Wheezing New onset of congestive heart failure Acute respiratory failure with hypoxia Colon cancer Diabetes mellitus Hyponatremia Fracture, humerus closed Obesity, Class II, BMI 35-39.9 Closed fracture of shaft of left humerus Lower extremity edema Surgical History H/O hemicolectomy Family History Daughter No problems noted. Mother Cancer Diabetes Father Cancer Diabetes Stroke Other Hypertension Social History Smoking and tobacco/nicotine status: never used tobacco/nicotine Alcohol intake: never Substance/Drug Use: never Physical Exam Narrative: She is unresponsive but moves extremities to verbal commands Chest clear to ascultation CVS normal Abdomen soft, Normal BS Ext 1+ b/l lower extremity edema present. A&P Assessment and plan (1) Need for comfort care: (2) Metastatic colon cancer to liver: Plan 88-year-old female with rectal cancer, came in for abdominal pain, she has been diagnosed with metastatic lesion omental carcinomatosis,unresponsive and on inpatient hospice. Hospice orders in place. Family aware about current medical condition. Attestations Medical Necessity Statement*: She is here on inpatient hospice care. Time Spent in Patient Care: 10 minutes Coding Level of Care Code Acute Code for Chg Fwd Diagnoses Need for comfort care Metastatic colon cancer to liver C18.9; C78.7 Time Spent (min) 10
[2024-01-01] MEDS: morphine 10 mg/0.5 mL oral liq UD SUBLINGUAL ×2 (14:58→21:05)
[2024-01-01] MEDS: atropine 1% op soln 2 mL Btl 3 DROP SUBLINGUAL (21:06)
--- NOTE | 2024-01-02 11:48 | PM.PN ---
Subjective Subjective: No acute overnight events noted Medications: Reviewed: Yes Vitals/I&O/Wt Last Vital Signs O2 Flow Rate 2.5 01/01/24 21:33 01/01/24 01/02/24 01/02/24 22:59 06:59 14:59 Intake Total 0 / 0 0 / 0 0 / 0 Balance 0 / 0 0 / 0 0 / 0 Weight last 48 hrs Weight 89.358 kg Physical Exam Narrative: She is unresponsive but moves extremities to verbal commands Chest clear to ascultation CVS normal Abdomen soft, Normal BS Ext 1+ b/l lower extremity edema present. A&P Assessment and plan (1) Need for comfort care: (2) Metastatic colon cancer to liver: Plan 88-year-old female with rectal cancer, came in for abdominal pain, she has been diagnosed with metastatic lesion omental carcinomatosis,unresponsive and on inpatient hospice. Hospice orders in place. Family aware about current medical condition. Attestations Medical Necessity Statement*: She is here on inpatient hospice care. Time Spent in Patient Care: 10 minutes Coding Level of Care Code Acute Code for Chg Fwd Diagnoses Need for comfort care Metastatic colon cancer to liver C18.9; C78.7 Time Spent (min) 10
--- NOTE | 2024-01-02 22:25 | PC.NURSE ---
Patients telemetry alarm was showing asystole. When assessing patient there was no heart beat or breath sounds upon auscultation. Called in second nurse Angela Muñoz LPN to verify; she also did not hear heart sounds or breath sounds upon auscultation. Time of was announced for 1904; family was present at bedside. MTS was called at 193 where she was ruled out as a candidate. [facility] was also notified since that was the company patient was using for hospice. After the body was cleaned up and being prepared to go to the [facility], patient's dentures were sealed in a denture cup and placed inside body bag with patient. Patient transferred down to [facility] at 2200.
[2024-01-02 22:37] VITALS: PULSE 0; O2SAT 0
--- NOTE | 2024-01-03 12:56 | PM.DDS ---
Discharge Providers DDS Date of Admission: 12/31/23 13:07 Date Summary Completed: 01/03/24 Attending Provider at Admission: Zenaida Solorzano MD Time of : 19:05 Attending Provider at Discharge: Zenaida Solorzano MD Primary Care Provider: SULY Jason Diagnoses Probable Cause of Cardiopulmonary arrest Hospital Diagnoses (1) Need for comfort care: (2) Metastatic colon cancer to liver: Reason for Visit Reason for Visit HOSPICE CARE ADMIT Brief History: Shelley Balderrama is a 88 year old female with history of A-fib, chronic anticoagulation, type II diabetic, colon cancer status post hemicolectomy presented with chief complaint of generalized weakness and fatigue, patient stating that she was using a walker now not been able to use much because she is extremely fatigued and lethargic, she had regular bowel movement this morning, she has not noticed any fever but endorsing chills, no recent chest pain shortness of breath nausea vomiting. Patient has been taking Tylenol at home. In the ER she has been diagnosed with UTI, ANNIE, CT abdomen pelvis consistent with recurrent neoplasm with mets to abdominal wall, omental carcinomatosis Patient and family both want hospice care at home Summary Date and Time of Date of : 01/02/24 Time of : 19:05 Summary Summary: 12/26 Assessment and plan (1) Diastolic heart failure: (2) Atrial fibrillation: (3) Diabetes mellitus: (4) Hyponatremia: (5) UTI (urinary tract infection): (6) Metastatic colon cancer to liver: (7) Need for comfort care: Plan UTI Colon cancer with mets, omental carcinomatosis Start patient on ceftriaxone Patient will put on opioids along bowel regimen Patient is stating that she want to pursue with hospice/comfort care at home Will put her on opioids She was only using Tylenol at home For A-fib she wants to continue aspirin only along her AV sotero blocking agents she stopped taking Eliquis For chronic hyponatremia continue salt tablets [id number]-old female with rectal cancer, came in for abdominal pain, she has been diagnosed with metastatic lesion omental carcinomatosis, decided not to pursue chemotherapy, wants to speak with Dr. Carrion on Saturday, I have started her on comfort care in the hospital, she is asking for home hospice on Saturday which will be arranged by social [employer] sr strategy manager Rectal cancer with mets Patient not interested in pursuing chemo or radiotherapy Patient has changed her CODE STATUS DNR/DNI and opted for hospice care at home In the hospital we have initiated comfort care with opioids She is getting morphine extended release and Dilaudid for breakthrough pain She is also getting opioids I will change her ceftriaxone to Macrobid and discontinue IV antibiotics, she has been afebrile 12/28-Hospice has been consulted and they will plan to see the patient tomorrow for further evaluation and to discuss options with the family. The plan is to go to the patient's daughter's house for hospice care at this point. For now we will continue with comfort measures. We discussed the pain medications and that they may be a part of why she is feeling more sedated. We discussed the options of trying to control her pain more intensely versus having her be more alert but possibly having periods of time with more pain. The family requested to keep her medications on the long-acting in order to help control her pain better. All questions were answered. The family is in agreement with the current plan of care. The patient was unable to answer questions meaningfully at this time. 12/29-The family is in agreement with the current plan of care. The patient was unable to answer questions meaningfully at this time. Hospice consulted. Family concerned about taking her home today hence want to stay 1 more day. Contacted case management for eligibility for inpatient hospice. Will continue with p.o. medications until accepted by hospice care. 12/30-patient has been accepted to inpatient hospice. 12/31- Will discharge as inpatient to continue with inpatient hospice/comfort care. Patient has been non responsive and comforted with morphine and ativan currently. family at bedside and aware of the current condition. 01/01-patient's condition remained unchanged as compared to 12/31. As per nursing note at 10:25 PM Patients telemetry alarm was showing asystole. When assessing patient there was no heart beat or breath sounds upon auscultation. Called in second nurse Angela Muñoz LPN to verify; she also did not hear heart sounds or breath sounds upon auscultation. Time of was announced for 1904; family was present at bedside. [facility] was called at 1934 where she was ruled out as a candidate. [facility] was also notified since that was the company patient was using for hospice. After the body was cleaned up and being prepared [place] [facility] [place], [place]'s dentures were sealed in a denture cup and placed inside body bag with patient. Patient transferred down to [facility] at 2200. Additional Data Was code activated?: No Advance directives?: Yes Hospice patient?: Yes Discharge Plan Discharge Patient Disposition: Condition: Prescriptions: No Action Lantus U-100 Insulin 100 unit/mL solution 54 unit SUBCUT BID Eliquis 5 mg tablet 5 mg PO BID@0900,2100 Qty: 90 3RF cetirizine 10 mg Tablet 10 mg PO DAILY levothyroxine 75 mcg tablet 75 mcg PO QAM pantoprazole 40 mg tablet,delayed release (DR/EC) 40 mg PO QAM albuterol sulfate 90 mcg/actuation HFA aerosol inhaler 2 puff INHALATION QID PRN (Reason: Shortness Of Breath) ferrous sulfate [FeroSul] 325 mg (65 mg iron) tablet 325 mg PO QAM amiodarone 200 mg tablet 200 mg PO DAILY furosemide [Lasix] 20 mg tablet 40 mg PO QAM Jardiance 25 mg tablet 25 mg PO QAM diltiazem HCl 120 mg capsule,extended release 24hr 120 mg PO DAILY potassium chloride 10 mEq tablet extended release 10 meq PO DAILY sodium chloride 1,000 mg Tablet,Soluble 1,000 mg PO BID Qty: 60 0RF Referrals: [facility] [Outside] Patient Instructions: Opioid Safety Probable Cause of Probable cause of : Cardiac arrest DS Attestations Time Spent in /Discharge Care*: less than 30 min Quality - AMI: AMI present?: No Quality - Stroke: CVA present?: No Quality - VTE: VTE present?: No Coding Level of Care Code Acute Code for Chg Fwd Diagnoses Need for comfort care Metastatic colon cancer to liver C18.9; C78.7 Time Spent (min) 15
== END 2024-01-02 22:00 | disposition expired | DRG 951 ==
PROVIDERS: Admitting Provider Internal Medicine; PCP Nurse Practitioner Family; Visit Provider Internal Medicine
DX: Z51.5 Encounter for palliative care (principal); C78.7 Secondary malignant neoplasm of liver and intrahepatic bile duct; C20 Malignant neoplasm of rectum; I50.32 Chronic diastolic (congestive) heart failure; C18.9 Malignant neoplasm of colon, unspecified; C78.6 Secondary malignant neoplasm of retroperitoneum and peritoneum; N39.0 Urinary tract infection, site not specified; E87.1 Hypo-osmolality and hyponatremia; Z79.890 Hormone replacement therapy; Z79.4 Long term (current) use of insulin; Z79.899 Other long term (current) drug therapy; Z88.0 Allergy status to penicillin; I48.0 Paroxysmal atrial fibrillation; Z79.01 Long term (current) use of anticoagulants; E11.9 Type 2 diabetes mellitus without complications; Z66 Do not resuscitate; Z90.49 Acquired absence of other specified parts of digestive tract